=== PATIENT | female | born 1940 | race Caucasian/White ===

== ENCOUNTER 2017-07-07 20:53 | Inpatient (IN) | payer OTHER, MEDICARE ==
[~2017-07-07 20:53] MED LIST: AMLO5TAB2 PO; ASPI81TA19 PO; BUSP5TAB PO; CHOL1TAB42 PO; CITA20TA4 PO; CLON0.1T PO; EZET1TAB8 PO; ISOS30TA3 PO; L. A1CAP PO; LEVO50TA4 PO; LOSA50TA PO; MULT1TAB46 PO; OMEP20TA PO; VITA10002 PO
[2017-07-07] MEDS ORDERED: IOHEXOL 350 MG/ML 10 ML VIAL (for RAD DIAG) IVCONTRAST ONE (20:54)
[2017-07-07 20:56] VITALS: BP 149/66; PULSE 89; RESP 20; TEMP 101.4; O2SAT 97
[2017-07-07] MEDS ORDERED: FAMOTIDINE 20 MG/2 ML VIAL IV PUSH ONE (21:30)
[2017-07-07] MEDS ORDERED: SODIUM CHLOR 0.9% 1000 ML INJ 1,000 ML IV SCH (21:30)
[2017-07-07] MEDS ORDERED: ONDANSETRON HCL 4 MG/2 ML VIAL IVP ONE (21:30)
[2017-07-07] MEDS ORDERED: ACETAMINOPHEN 325 MG TAB PO ONE ×2 (21:30→23:15)
[2017-07-07 21:34] VITALS: BP 195/93; PULSE 84; RESP 20; O2SAT 97
[2017-07-07 21:51] LABS: AUTOMATED NEUTROPHIL # 13.2 TH/MM3 (1.8-7.7); BASOPHIL # 0.1 TH/MM3 (0-0.2); BASOPHIL % 0.5 % (0.0-2.0); EOSINOPHIL % 0.3 % (0.0-4.0); HEMATOCRIT 32.5 % (35.0-46.0); LYMPHOCYTE # 0.8 TH/MM3 (1.0-4.8); MEAN CELL VOLUME 77.7 FL (80.0-100.0); MEAN CORPUSCULAR HGB CONC 32.1 % (32.0-36.0); MONO % 6.2 % (0.0-8.0); PLATELET COUNT 209 TH/MM3 (150-450); RED BLOOD COUNT 4.18 MIL/MM3 (4.00-5.30); RED CELL DISTRIBUTION WIDTH 23.2 % (11.6-17.2)
--- NOTE | 2017-07-07 21:53 | PD ---
HPI Chief Complaint: Abdominal Pain Time Seen by Provider: 21:25 Travel History International Travel<30 days: No Contact w/Intl Traveler<30days: No Traveled to known affect area: No History of Present Illness HPI 76-year-old female that presents to the ED for evaluation of abdominal pain and nausea and vomiting. Per patient she's had fever for the past 2 hours. The patient she developed nausea but 2 hours ago. She states that she is the only one who ate her food and nobody else got sick but only her. She states having body aches. Mainly on the legs. She states having lower abdominal pain. She has a history of a hernia repair. She has any chest pain or shortness of breath. No cough but she states having some congestion. She did not know she had a fever until she came here. She has a history of aneurysm repair as well as a hernia repair but no other surgeries to the abdomen reported. She isn't denies any cough. She states that she vomited a couple times. No diarrhea or bowel movement issues. Multiple allergies to different medications. PFSH Past Medical History Hx Anticoagulant Therapy: Yes Arthritis: Yes Asthma: Yes Blood Disorders: No Heart Rhythm Problems: No Cancer: No Cardiovascular Problems: Yes (BYPASS) High Cholesterol: Yes Chest Pain: No Congestive Heart Failure: No Cerebrovascular Accident: Yes Diabetes: No Diminished Hearing: No Endocrine: Yes Gastrointestinal Disorders: No Genitourinary: Yes (FREQUENT KIDNEY INFECTIONS) Hypertension: Yes Immune Disorder: No Musculoskeletal: Yes (arthritis) Neurologic: Yes Psychiatric: No Reproductive: No Respiratory: Yes (allergies) Renal Failure: Yes Thyroid Disease: Yes Influenza Vaccination: Yes Menopausal: Yes Tubal Ligation: Yes Past Surgical History Abdominal Surgery: Yes (hernia repair) Cardiac Surgery: Yes (open heart) Coronary Artery Bypass Graft: Yes Gynecologic Surgery: Yes (tubal ligation) Other Surgery: Yes (open heart, tubal ligation) Social History Alcohol Use: Yes (OCC) Tobacco Use: No Substance Use: No Allergies-Medications (Allergen,Severity, Reaction): Coded Allergies: amlodipine (Unverified Allergy, Severe, Cramping, 07/07/17) atorvastatin (Unverified Allergy, Severe, Cramping, 07/07/17) pravastatin (Unverified Allergy, Severe, Cramping, 07/07/17) prednisone (Unverified Allergy, Severe, [place], 07/07/17) simvastatin (Unverified Allergy, Severe, Cramping, 07/07/17) codeine (Unverified Adverse Reaction, Severe, 07/07/17) dopamine (Unverified Adverse Reaction, Severe, 07/07/17) morphine (Unverified Adverse Reaction, Severe, 07/07/17) rivaroxaban (Unverified Adverse Reaction, Severe, 07/07/17) Reported Meds & Prescriptions Reported Meds & Active Scripts Active Reported Clonidine (Clonidine HCl) 0.1 Mg Tab 0.1 Mg PO BID PRN Ezetimibe 10 Mg Tab 10 Mg PO HS Citalopram (Citalopram Hydrobromide) 20 Mg Tab 20 Mg PO HS Multi Vitamin Daily (Multiple Vitamin) 1 Tab Tab 1 Tab PO DAILY Acidophilus Capsule (L. Acidophilus/Pectin, [place]) 1 Each Capsule 1 Cap PO DAILY Vitamin D-3 (Cholecalciferol) 2,000 Unit Tab 1 Cap PO DAILY Amlodipine (Amlodipine Besylate) 5 Mg Tab 5 Mg PO DAILY Buspirone (Buspirone HCl) 5 Mg Tab 5 Mg PO BID Levothyroxine (Levothyroxine Sodium) 50 Mcg Tab 50 Mcg PO DAILY Isosorbide Mononitrate ER (Isosorbide Mononitrate) 30 Mg Patrick 30 Mg PO DAILY Losartan (Losartan Potassium) 50 Mg Tab 50 Mg PO BID Aspir-Low (Aspirin) 81 Mg Tabdr 81 Mg PO DAILY Vitamin B-12 (Cyanocobalamin) 1,000 Mcg Tab 1,000 Mcg PO DAILY Omeprazole 20 Mg Tab 20 Mg PO DAILY Review of Systems Except as stated in HPI: all other systems reviewed are Neg Physical Exam Narrative GENERAL: SKIN: Warm and dry. HEAD: Atraumatic. Normocephalic. EYES: Pupils equal and round. No scleral icterus. No injection or drainage. ENT: No nasal bleeding or discharge. Mucous membranes pink and moist. Tongue is midline. No uvula deviation. TMs are clear with no sign of infection or perforation. NECK: Trachea midline. No JVD. CARDIOVASCULAR: Regular rate and rhythm. No murmurs, S3, S4. RESPIRATORY: No accessory muscle use. Clear to auscultation. Breath sounds equal bilaterally. GASTROINTESTINAL: Abdomen soft, non-tender, nondistended. Hepatic and splenic margins not palpable. MUSCULOSKELETAL: Extremities without clubbing, cyanosis, or edema. No obvious deformities. Full range of motion of the upper and lower extremities bilaterally. 2+ pulses bilaterally. NEUROLOGICAL: Awake and alert. No obvious cranial nerve deficits. Motor grossly within normal limits. Five out of 5 muscle strength in the arms and legs. Normal speech. PSYCHIATRIC: Appropriate mood and affect; insight and judgment normal. Data Data Last Documented VS Vital Signs Date Time Temp Pulse Resp B/P (MAP) Pulse Ox O2 Delivery O2 Flow Rate FiO2 07/07/17 21:34 84 20 195/93 (127) 97 Room Air 07/07/17 20:56 101.4 Orders Orders Complete Blood Count With Diff (07/07/17 21:30) Comprehensive Metabolic Panel (07/07/17 21:30) Lipase (07/07/17 21:30) Lactic Acid (07/07/17 21:30) Prothrombin Time / Inr (Pt) (07/07/17 21:30) Act Partial Throm Time (Ptt) (07/07/17 21:30) Urinalysis - C+S If Indicated (07/07/17 21:30) Ct Abd/Pel W Iv Contrast(Rout) (07/07/17 21:30) Iv Access Insert/Monitor (07/07/17 21:30) Ecg Monitoring (07/07/17 21:30) Oximetry (07/07/17 21:30) Ondansetron Inj (Zofran Inj) (07/07/17 21:30) Sodium Chlor 0.9% 1000 Ml Inj (Ns 1000 M (07/07/17 21:30) Famotidine Inj (Pepcid Inj) (07/07/17 21:30) Acetaminophen (Tylenol) (07/07/17 21:30) Chest, Single Ap (07/07/17 ) Iohexol 350 Inj (Omnipaque 350 Inj) (07/07/17 20:54) Urine Culture (07/07/17 22:21) Ceftriaxone Inj (Rocephin Inj) (07/07/17 23:15) Acetaminophen (Tylenol) (07/07/17 23:15) Ibuprofen (Motrin) (07/07/17 23:30) Admit Order (Ed Use Only) (07/07/17 23:48) Vital Signs (Adult) Q4H (07/07/17 23:47) Activity Oob With Assistance (07/07/17 23:47) Diet Heart Healthy (07/08/17 Breakfast) Sodium Chlor 0.9% 1000 Ml Inj (Ns 1000 M (07/07/17 23:47) Sodium Chloride 0.9% Flush (Ns Flush) (07/08/17 00:00) Sodium Chloride 0.9% Flush (Ns Flush) (07/08/17 09:00) Basic Metabolic Panel (Bmp) (07/08/17 06:00) Complete Blood Count With Diff (07/08/17 06:00) Case Management Consult (07/07/17 23:47) Naloxone Inj (Narcan Inj) (07/08/17 00:00) Ceftriaxone Inj (Rocephin Inj) (07/08/17 00:00) Labs Laboratory Tests Test 07/07/17 21:40 07/07/17 22:21 White Blood Count 15.0 TH/MM3 Red Blood Count 4.18 MIL/MM3 Hemoglobin 10.4 GM/DL Hematocrit 32.5 % Mean Corpuscular Volume 77.7 FL Mean Corpuscular Hemoglobin 25.0 PG Mean Corpuscular Hemoglobin Concent 32.1 % Red Cell Distribution Width 23.2 % Platelet Count 209 TH/MM3 Mean Platelet Volume 8.5 FL Neutrophils (%) (Auto) 88.0 % Lymphocytes (%) (Auto) 5.0 % Monocytes (%) (Auto) 6.2 % Eosinophils (%) (Auto) 0.3 % Basophils (%) (Auto) 0.5 % Neutrophils # (Auto) 13.2 TH/MM3 Lymphocytes # (Auto) 0.8 TH/MM3 Monocytes # (Auto) 0.9 TH/MM3 Eosinophils # (Auto) 0.0 TH/MM3 Basophils # (Auto) 0.1 TH/MM3 CBC Comment AUTO DIFF Differential Comment AUTO DIFF CONFIRMED Prothrombin Time 10.2 SEC Prothromb Time International Ratio 0.9 RATIO Activated Partial Thromboplast Time 23.8 SEC Blood Urea Nitrogen 24 MG/DL Creatinine 1.24 MG/DL Random Glucose 101 MG/DL Total Protein 7.8 GM/DL Albumin 3.8 GM/DL Calcium Level 9.1 MG/DL Alkaline Phosphatase 82 U/L Aspartate Amino Transf (AST/SGOT) 20 U/L Alanine Aminotransferase (ALT/SGPT) 17 U/L Total Bilirubin 0.4 MG/DL Sodium Level 140 MEQ/L Potassium Level 3.6 MEQ/L Chloride Level 107 MEQ/L Carbon Dioxide Level 25.1 MEQ/L Anion Gap 8 MEQ/L Estimat Glomerular Filtration Rate 42 ML/MIN Lactic Acid Level 1.6 mmol/L Lipase 131 U/L Urine Color YELLOW Urine Turbidity HAZY Urine pH 6.5 Urine Specific [place] 1.016 Urine Protein TRACE mg/dL Urine Glucose (UA) NEG mg/dL Urine Ketones NEG mg/dL Urine Occult Blood TRACE Urine Nitrite POS Urine Bilirubin NEG Urine Urobilinogen LESS THAN 2.0 MG/DL Urine Leukocyte Esterase LARGE Urine RBC 7 /hpf Urine WBC 89 /hpf Urine Squamous Epithelial Cells <1 /hpf Urine Renal Epithelial Cells <1 /hpf Urine Bacteria OCC /hpf Microscopic Urinalysis Comment CULTURE INDICATED MDM Medical Decision Making Medical Screen Exam Complete: Yes Emergency Medical Condition: Yes Medical Record Reviewed: Yes Interpretation(s) CBC Diagram 07/07/17 21:40 Differential Diagnosis Fever versus sepsis versus dehydration versus UTI versus diverticulitis versus acute abdomen versus pancreatitis Narrative Course 76-year-old female that presents to the ED for evaluation of nausea vomiting and fever. Patient was properly examined and was found to have signs and symptoms of unclear etiology. Likely gastroenteritis but patient does have a high fever. Labs and imaging were ordered. CT was ordered. Patient was given IV fluids and Tylenol as well as Zofran. Labs and imaging pending at the writing of this note. Case signed out to my attending Dr Gutierrez. Sepsis Criteria SIRS Criteria (2 or more): Temp > 100.9 or < 96.8, WBC > 39203, < 4000 or > 10 % bands Sepsis Criteria (SIRS+source): Infect source susp/known Criteria Outcome: Meets sepsis criteria Italo Michaud Jul 07, 2017 21:53
[2017-07-07 21:56] LABS: HEMO FLAGS AUTO DIFF
[2017-07-07 22:05] LABS: ALT (GPT) 17 U/L (10-53); ANION GAP 8 MEQ/L (5-15); AST (GOT) 20 U/L (15-37); BICARBONATE 25.1 MEQ/L (21.0-32.0); BLOOD UREA NITROGEN 24 MG/DL (7-18); CHLORIDE 107 MEQ/L (98-107); GLOMERULAR FILTRATION RATE 42 ML/MIN (>89); POTASSIUM 3.6 MEQ/L (3.5-5.1); SODIUM (NA) 140 MEQ/L (136-145)
[2017-07-07 22:08] LABS: ALKALINE PHOSPHATASE 82 U/L (45-117); TOTAL BILIRUBIN ADULT 0.4 MG/DL (0.2-1.0)
[2017-07-07 22:28] LABS: APTT (PATIENT) 23.8 SEC (24.3-30.1); INTERNATIONAL NORMALIZED RATIO 0.9 RATIO; PROTHROMBIN TIME - PATIENT 10.2 SEC (9.8-11.6); SCAN/DIFF AUTO DIFF CONFIRMED
--- NOTE | 2017-07-07 22:34 | RADRPT ---
EXAM DATE/TIME: 07/07/2017 22:05 [facility] COMPARISON: CHEST PA & LAT, June 02, 2015, 12:08. INDICATIONS : Fever today. MEDICAL HISTORY : Hypertension. Stroke. Asthma. Renal failure. SURGICAL HISTORY : CABG. ENCOUNTER: Initial ACUITY: 1 day PAIN SCORE: 0/10 LOCATION: Bilateral chest FINDINGS: A single view of the chest demonstrates median sternotomy. Tortuous aorta. Mild basilar atelectasis o r scarring. There is also upper lobe scarring and some upward hilar retraction on the left. Emphysema . CONCLUSION: 1. Parenchymal scarring and fibrosis in the lungs similar to June 2015. No new infiltrate. Underlyi ng emphysema. Matthew Miller MD on July 07, 2017 at 22:31 Board Certified Radiologist. This report was verified electronically.
--- NOTE | 2017-07-07 23:02 | RADRPT ---
EXAM DATE/TIME: 07/07/2017 22:45 [facility] COMPARISON: No previous studies available for comparison. INDICATIONS : Patient complains of abdominal pain and vomiting for two hours. IV CONTRAST: 75 cc Omnipaque 350 (iohexol) IV ORAL CONTRAST: No oral contrast ingested. RADIATION DOSE: 10.58 CTDIvol (mGy) MEDICAL HISTORY : Cardiovascular disease. Hypertension. Hernia, hiatal. SURGICAL HISTORY : CABG Tubal ligation.hernia repair ENCOUNTER: Initial ACUITY: 1 day PAIN SCALE: 5/10 LOCATION: upper quadrant TECHNIQUE: Volumetric scanning of the abdomen and pelvis was performed. Using automated exposure control and ad justment of the mA and/or kV according to patient size, radiation dose was kept as low as reasonably achievable to obtain optimal diagnostic quality images. DICOM format image data is available electro nically for review and comparison. FINDINGS: Compared to 2015. Linear parenchymal scarring lung bases. Large hiatal hernia. Calcified granulomata in the liver and spleen. Adrenals and pancreas unchanged. Mildly dilated right renal pelvis. No left hydronephrosis. Previous stent graft in the aorta. No free fluid. No bowel obstruction. No adenopathy. Colonic diverticulosis without diverticulitis. De generative changes of the spine with lumbar canal stenosis. Left paracentral disc protrusion L4-5 sim ilar to prior exam. CONCLUSION: 1. Negative for bowel obstruction, free air or free fluid. 2. Status post stent graft placement in the aorta without significant residual aneurysm. 3. Dilatation of right renal collecting system, mild. No visible calculi. 4. Large hiatal hernia. 5. Degenerative lumbar spine with left paracentral disc protrusion at L4-5. 6. Cholelithiasis. Matthew Miller MD on July 07, 2017 at 22:54 Board Certified Radiologist. This report was verified electronically.
[2017-07-07 23:03] LABS: BACTERIA, URINE OCC /hpf; BLOOD, URINE TRACE (NEG); COMMENT (UR) CULTURE INDICATED; CULTURE IF INDICATED CULTURE INDICATED; GLUCOSE,URINE NEG (NEG); KETONE, URINE NEG (NEG); NITRITE,URINE POS (NEG); PH, URINE 6.5 (5.0-8.5); RENAL EPITHELIAL CELLS <1 /hpf; SQUAMOUS EPITHELIAL CELL URINE <1 /hpf (0-5); URINE COLOR YELLOW (YELLW/STRAW)
[2017-07-07] MEDS ORDERED: cefTRIAXone INJ 1,000 MG in SODIUM CHLORIDE 0.9% INJ 100 ML IV ONE (23:15)
--- NOTE | 2017-07-07 23:26 | PD ---
Data Data Last Documented VS Vital Signs Date Time Temp Pulse Resp B/P (MAP) Pulse Ox O2 Delivery O2 Flow Rate FiO2 07/07/17 21:34 84 20 195/93 (127) 97 Room Air 07/07/17 20:56 101.4 Orders Orders Complete Blood Count With Diff (07/07/17 21:30) Comprehensive Metabolic Panel (07/07/17 21:30) Lipase (07/07/17 21:30) Lactic Acid (07/07/17 21:30) Prothrombin Time / Inr (Pt) (07/07/17 21:30) Act Partial Throm Time (Ptt) (07/07/17 21:30) Urinalysis - C+S If Indicated (07/07/17 21:30) Ct Abd/Pel W Iv Contrast(Rout) (07/07/17 21:30) Iv Access Insert/Monitor (07/07/17 21:30) Ecg Monitoring (07/07/17 21:30) Oximetry (07/07/17 21:30) Ondansetron Inj (Zofran Inj) (07/07/17 21:30) Sodium Chlor 0.9% 1000 Ml Inj (Ns 1000 M (07/07/17 21:30) Famotidine Inj (Pepcid Inj) (07/07/17 21:30) Acetaminophen (Tylenol) (07/07/17 21:30) Chest, Single Ap (07/07/17 ) Iohexol 350 Inj (Omnipaque 350 Inj) (07/07/17 20:54) Urine Culture (07/07/17 22:21) Ceftriaxone Inj (Rocephin Inj) (07/07/17 23:15) Acetaminophen (Tylenol) (07/07/17 23:15) Ibuprofen (Motrin) (07/07/17 23:30) Admit Order (Ed Use Only) (07/07/17 23:48) Vital Signs (Adult) Q4H (07/07/17 23:47) Activity Oob With Assistance (07/07/17 23:47) Diet Heart Healthy (07/08/17 Breakfast) Sodium Chlor 0.9% 1000 Ml Inj (Ns 1000 M (07/07/17 23:47) Sodium Chloride 0.9% Flush (Ns Flush) (07/08/17 00:00) Sodium Chloride 0.9% Flush (Ns Flush) (07/08/17 09:00) Basic Metabolic Panel (Bmp) (07/08/17 06:00) Complete Blood Count With Diff (07/08/17 06:00) Case Management Consult (07/07/17 23:47) Naloxone Inj (Narcan Inj) (07/08/17 00:00) Ceftriaxone Inj (Rocephin Inj) (07/08/17 22:00) Labs Laboratory Tests Test 07/07/17 21:40 07/07/17 22:21 White Blood Count 15.0 TH/MM3 Red Blood Count 4.18 MIL/MM3 Hemoglobin 10.4 GM/DL Hematocrit 32.5 % Mean Corpuscular Volume 77.7 FL Mean Corpuscular Hemoglobin 25.0 PG Mean Corpuscular Hemoglobin Concent 32.1 % Red Cell Distribution Width 23.2 % Platelet Count 209 TH/MM3 Mean Platelet Volume 8.5 FL Neutrophils (%) (Auto) 88.0 % Lymphocytes (%) (Auto) 5.0 % Monocytes (%) (Auto) 6.2 % Eosinophils (%) (Auto) 0.3 % Basophils (%) (Auto) 0.5 % Neutrophils # (Auto) 13.2 TH/MM3 Lymphocytes # (Auto) 0.8 TH/MM3 Monocytes # (Auto) 0.9 TH/MM3 Eosinophils # (Auto) 0.0 TH/MM3 Basophils # (Auto) 0.1 TH/MM3 CBC Comment AUTO DIFF Differential Comment AUTO DIFF CONFIRMED Prothrombin Time 10.2 SEC Prothromb Time International Ratio 0.9 RATIO Activated Partial Thromboplast Time 23.8 SEC Blood Urea Nitrogen 24 MG/DL Creatinine 1.24 MG/DL Random Glucose 101 MG/DL Total Protein 7.8 GM/DL Albumin 3.8 GM/DL Calcium Level 9.1 MG/DL Alkaline Phosphatase 82 U/L Aspartate Amino Transf (AST/SGOT) 20 U/L Alanine Aminotransferase (ALT/SGPT) 17 U/L Total Bilirubin 0.4 MG/DL Sodium Level 140 MEQ/L Potassium Level 3.6 MEQ/L Chloride Level 107 MEQ/L Carbon Dioxide Level 25.1 MEQ/L Anion Gap 8 MEQ/L Estimat Glomerular Filtration Rate 42 ML/MIN Lactic Acid Level 1.6 mmol/L Lipase 131 U/L Urine Color YELLOW Urine Turbidity HAZY Urine pH 6.5 Urine Specific [place] 1.016 Urine Protein TRACE mg/dL Urine Glucose (UA) NEG mg/dL Urine Ketones NEG mg/dL Urine Occult Blood TRACE Urine Nitrite POS Urine Bilirubin NEG Urine Urobilinogen LESS THAN 2.0 MG/DL Urine Leukocyte Esterase LARGE Urine RBC 7 /hpf Urine WBC 89 /hpf Urine Squamous Epithelial Cells <1 /hpf Urine Renal Epithelial Cells <1 /hpf Urine Bacteria OCC /hpf Microscopic Urinalysis Comment CULTURE INDICATED MDM Supervised Visit with MAGDA: Yes Narrative Course I, Dr. Gutierrez, have reviewed the advance practice practitioner's documentation and am in agreement, met with the patient face to face, made the diagnosis, and the medical decision making was done by me. See her note for further details. Briefly this is a 76-year-old female who is here for evaluation of abdominal pain, nausea, vomiting, generalized weakness, unsteady gait, fever. Symptoms started a few hours ago. She is here with her family members. On physical exam she is awake and alert and in no apparent distress. No abdominal tenderness. Vital signs show heart rate 89, blood pressure 149/66, pulse ox 97% on room air , oral temp of 101.4F. CBC shows WBC 15, hemoglobin 10.4 which is around her baseline, neutrophils 80%. CMP is remarkable for BUN 24, creatinine 1.24, GFR 42. Lipase is 131. Lactic acid is 1.6. UA is suggestive of UTI. The patient was given a dose of IV Rocephin. Chest x-ray: CONCLUSION: 1. Parenchymal scarring and fibrosis in the lungs similar to June 2015. No new infiltrate. Underlying emphysema. CT abdomen pelvis: CONCLUSION: 1. Negative for bowel obstruction, free air or free fluid. 2. Status post stent graft placement in the aorta without significant residual aneurysm. 3. Dilatation of right renal collecting system, mild. No visible calculi. 4. Large hiatal hernia. 5. Degenerative lumbar spine with left paracentral disc protrusion at L4-5. 6. Cholelithiasis. The patient and the patient's family were made aware of all findings. Upon return from CT scan the patient began complaining of a frontal headache. She was already given a dose of Tylenol for her fever. She will be given a dose of ibuprofen for her headache. No nuchal rigidity on exam. She was given a dose of IV Rocephin for her UTI. Patient's family is concerned because the patient has generalized weakness and is unsteady on her feet and they live on a third floor condominium and believe they will have a hard time getting her up the stairs. Patient also still feels very nauseous and is not tolerating clear liquids yet. Because of these factors, the patient will be admitted for overnight observation for further treatment and evaluation of UTI, SIRS, nausea and vomiting, generalized weakness. Case discussed with hospitalist Dr. Easton will admit the patient to her service. Diagnosis Primary Impression: UTI (urinary tract infection) Qualified Codes: N39.0 - Urinary tract infection, site not specified; R31.9 - Hematuria, unspecified Additional Impressions: SIRS (systemic inflammatory response syndrome) Generalized weakness Unsteady gait Nausea and vomiting Qualified Codes: R11.2 - Nausea with vomiting, unspecified Jong Gutierrez MD Jul 07, 2017 23:26
[2017-07-07] MEDS ORDERED: IBUPROFEN 400 MG TAB PO ONE (23:30)
[2017-07-08] MEDS ORDERED: cefTRIAXone INJ 1,000 MG in SODIUM CHLORIDE 0.9% INJ 100 ML IV SCH ×2
[2017-07-08] MEDS ORDERED: NALOXONE HCL 0.4 MG/ML AMP IV PRN
[2017-07-08] MEDS ORDERED: SODIUM CHLORIDE 0.9% FLUSH 10 ML FLUSH IV FLUSH PRN
[2017-07-08 00:27] VITALS: BP 172/72; PULSE 81; RESP 18; TEMP 98.1; O2SAT 98
--- NOTE | 2017-07-08 01:48 | HHI.HP ---
[facility] Drake Farmer MD Admission Diagnosis UTI, SIRS, nausea and vomiting, generalized weakness, unsteady gait Diagnoses: Travel History International Travel<30 Days: No Contact w/Intl Traveler <30 Da: No Traveled to Known Affected Are: No Sepsis Criteria SIRS Criteria (2 or more): Temp > 100.9 or < 96.8, WBC > 21670, < 4000 or > 10 % bands Sepsis Criteria (SIRS+source): Infect source susp/known History of Present Illness was fine in am had meeting during day and by 530p.m when came back home, had severe shaking, fever, chills, [place], vomiting vomited about 4-5 x that time mostly dry heaves no blood in vomit no diarrhea had abdominal pain- mostly left lower quadrant kept happening during the evening 0 thus daughter brought her to er not diabetic no recent hospitalizations in past 6 months little cough, no sputum 2 weeks ago had some burning and pain on urination- was on meds for it - macrobid 7 days course finished no cp/ sob/dizziness/ syncope Review of Systems Except as stated in HPI: all other systems reviewed are Neg Past Family Social History Past Medical History labile blood pressure htn cad - s/p cabg- 1996 copd hepatitis - wayyyy back- cant remember which type CVA - left side weak Past Surgical History cabg abdominal aortic aneurysm- repaired umbilical hernia repair Allergies: Coded Allergies: amlodipine (Unverified Allergy, Severe, Cramping, 07/07/17) atorvastatin (Unverified Allergy, Severe, Cramping, 07/07/17) pravastatin (Unverified Allergy, Severe, Cramping, 07/07/17) prednisone (Unverified Allergy, Severe, AL, 07/07/17) simvastatin (Unverified Allergy, Severe, Cramping, 07/07/17) codeine (Unverified Adverse Reaction, Severe, 07/07/17) dopamine (Unverified Adverse Reaction, Severe, 07/07/17) morphine (Unverified Adverse Reaction, Severe, 07/07/17) rivaroxaban (Unverified Adverse Reaction, Severe, 07/07/17) Family History dad and mom- had MIs mom- had strokes Social History used to smoke , but quit in the 1970s drink wine only once in a while no drugs Physical Exam Vital Signs Vital Signs Date Time Temp Pulse Resp B/P (MAP) Pulse Ox O2 Delivery O2 Flow Rate FiO2 07/08/17 00:27 98.1 81 18 172/72 (105) 98 Room Air 07/07/17 21:34 84 20 195/93 (127) 97 Room Air 07/07/17 21:34 97 Room Air 07/07/17 20:56 101.4 89 20 149/66 (93) 97 Room Air Physical Exam GENERAL: This is a well-nourished, well-developed patient, in no apparent distress. warm to touch SKIN: No rashes, ecchymoses or lesions. Cool and dry. HEAD: Atraumatic. Normocephalic. No temporal or scalp tenderness. EYES: No scleral icterus. No injection or drainage. ENT: Nose without bleeding, purulent drainage or septal hematoma. Airway patent. NECK: Trachea midline. No JVD CARDIOVASCULAR: Regular rate and rhythm without murmurs, gallops, or rubs. RESPIRATORY: Clear to auscultation. Breath sounds equal bilaterally. No wheezes , rales, or rhonchi. GASTROINTESTINAL: Abdomen soft, non-tender, nondistended. No guarding. MUSCULOSKELETAL: Extremities without clubbing, cyanosis, or edema. . No calf tenderness. NEUROLOGICAL: Awake and alert. motor and sensory grossly within normal limits.Normal speech. Laboratory Laboratory Tests Test 07/07/17 21:40 07/07/17 22:21 White Blood Count 15.0 Red Blood Count 4.18 Hemoglobin 10.4 Hematocrit 32.5 Mean Corpuscular Volume 77.7 Mean Corpuscular Hemoglobin 25.0 Mean Corpuscular Hemoglobin Concent 32.1 Red Cell Distribution Width 23.2 Platelet Count 209 Mean Platelet Volume 8.5 Neutrophils (%) (Auto) 88.0 Lymphocytes (%) (Auto) 5.0 Monocytes (%) (Auto) 6.2 Eosinophils (%) (Auto) 0.3 Basophils (%) (Auto) 0.5 Neutrophils # (Auto) 13.2 Lymphocytes # (Auto) 0.8 Monocytes # (Auto) 0.9 Eosinophils # (Auto) 0.0 Basophils # (Auto) 0.1 CBC Comment AUTO DIFF Differential Comment AUTO DIFF CONFIRMED Prothrombin Time 10.2 Prothromb Time International Ratio 0.9 Activated Partial Thromboplast Time 23.8 Blood Urea Nitrogen 24 Creatinine 1.24 Random Glucose 101 Total Protein 7.8 Albumin 3.8 Calcium Level 9.1 Alkaline Phosphatase 82 Aspartate Amino Transf (AST/SGOT) 20 Alanine Aminotransferase (ALT/SGPT) 17 Total Bilirubin 0.4 Sodium Level 140 Potassium Level 3.6 Chloride Level 107 Carbon Dioxide Level 25.1 Anion Gap 8 Estimat Glomerular Filtration Rate 42 Lactic Acid Level 1.6 Lipase 131 Urine Color YELLOW Urine Turbidity HAZY Urine pH 6.5 Urine Specific [place] 1.016 Urine Protein TRACE Urine Glucose (UA) NEG Urine Ketones NEG Urine Occult Blood TRACE Urine Nitrite POS Urine Bilirubin NEG Urine Urobilinogen LESS THAN 2.0 Urine Leukocyte Esterase LARGE Urine RBC 7 Urine WBC 89 Urine Squamous Epithelial Cells <1 Urine Renal Epithelial Cells <1 Urine Bacteria OCC Microscopic Urinalysis Comment CULTURE INDICATED Date/Time Source Procedure Growth Status 07/07/17 22:21 Urine Random Urine Urine Culture Pending Received Result Diagram: 07/07/17213907/07/172139 Imaging Last 48 hours Impressions Abdomen/Pelvis CT 07/07/172129 Signed Impressions: Service Date/Time: Friday, July 07, 2017 22:45 - CONCLUSION: 1. Negative for bowel obstruction, free air or free fluid. 2. Status post stent graft placement in the aorta without significant residual aneurysm. 3. Dilatation of right renal collecting system, mild. No visible calculi. 4. Large hiatal hernia. 5. Degenerative lumbar spine with left paracentral disc protrusion at L4-5. 6. Cholelithiasis. Matthew Miller MD Chest X-Ray 07/07/17 0000 Signed Impressions: Service Date/Time: Friday, July 07, 2017 22:05 - CONCLUSION: 1. Parenchymal scarring and fibrosis in the lungs similar to June 2015. No new infiltrate. Underlying emphysema. Matthew Miller MD Caprini VTE Risk Assessment Caprini VTE Risk Assessment: Mod/High Risk (score >= 2) Caprini Risk Assessment Model Point Value = 1 Point Value = 2 Point Value = 3 Point Value = 5 Age 41-60 Minor surgery BMI > 25 kg/m2 Swollen legs Varicose veins or History of unexplained or recurrent spontaneous Oral contraceptives or hormone replacement Sepsis (< 1 month) Serious lung disease, including pneumonia (< 1 month) Abnormal pulmonary function Acute myocardial infarction Congestive heart failure (< 1 month) History of inflammatory bowel disease Medical patient at bed rest Age 61-74 Arthroscopic surgery Major open surgery (> 45 min) Laparoscopic surgery (> 45 min) Malignancy Confined to bed (> 72 hours) Immobilizing plaster cast Central venous access Age >= 75 History of VTE Family history of VTE Factor V Leiden Prothrombin [id number] Lupus anticoagulant Anticardiolipin antibodies Elevated serum homocysteine Heparin-induced thrombocytopenia Other congenital or acquired thrombophilia Stroke (< 1 month) Elective arthroplasty Hip, pelvis, or leg fracture Acute spinal cord injury (< 1 month) Prophylaxis Regimen Total Risk Factor Score Risk Level Prophylaxis Regimen 0-1 Low Early ambulation 2 Moderate Order ONE of the following: *Sequential Compression Device (SCD) *Heparin 5000 units SQ BID 3-4 Higher Order ONE of the following medications: *Heparin 5000 units SQ TID *Enoxaparin/Lovenox 40 mg SQ daily (WT < 150 kg, CrCl > 30 mL/min) *Enoxaparin/Lovenox 30 mg SQ daily (WT < 150 kg, CrCl > 10-29 mL/min) *Enoxaparin/Lovenox 30 mg SQ BID (WT < 150 kg, CrCl > 30 mL/min) AND/OR *Sequential Compression Device (SCD) 5 or more Highest Order ONE of the following medications: *Heparin 5000 units SQ TID (Preferred with Epidurals) *Enoxaparin/Lovenox 40 mg SQ daily (WT < 150 kg, CrCl > 30 mL/min) *Enoxaparin/Lovenox 30 mg SQ daily (WT < 150 kg, CrCl > 10-29 mL/min) *Enoxaparin/Lovenox 30 mg SQ BID (WT < 150 kg, CrCl > 30 mL/min) AND *Sequential Compression Device (SCD) Assessment and Plan Assessment and Plan Impression: Sepsis by criteria. With fever of 101, leukocytosis, source being UTI. UTI Abdominal pain rule out intra-abdominal etiologies as the source such as cholecystitis/appendicitis. Patient also has cholelithiasis on CT. Leukocytosis with left shift Plan: Patient received 1 L normal saline bolus in ER. She was started on Rocephin 1 g IV in ER. We'll follow up urine culture results. Since patient's CT was showing cholelithiasis, this could also be secondary to symptomatic cholelithiasis versus cholecystitis as patient is having abdominal pains on Examination. Therefore switched to Zosyn 4.5 g IV every 6 hours. Ultrasound of the abdomen in a.m. Based on the ultrasound results, consider general surgery evaluation if there is evidence of cholecystitis. DVT prophylaxiswith SCD. GI prophylaxis on pantoprazole. Resume home meds. Discussed Condition With Patient, ER physician, patient's nurse Mckay Easton MD Jul 08, 2017 01:48
[2017-07-08] MEDS: PIPERACIL-TAZO 3.375 GM PREMIX 50 ML IV SCH ×4 (02:04→20:06)
[2017-07-08 04:33] VITALS: BP 133/63; PULSE 63; RESP 17; TEMP 97.5; O2SAT 100
[2017-07-08] MEDS: LEVOTHYROXINE SODIUM 50 MCG TAB PO SCH (06:19)
[2017-07-08 07:42] VITALS: BP 152/67; PULSE 61; RESP 16; TEMP 98.2; O2SAT 100
[2017-07-08] MEDS: LOSARTAN 50 MG TAB PO SCH ×2 (08:02→20:07)
[2017-07-08] MEDS: amLODIPine BESYLATE 5 MG TAB PO SCH (08:02)
[2017-07-08] MEDS: ISOSORBIDE MONONITRATE 30 MG TAB PO SCH (08:02)
[2017-07-08] MEDS: LACTOBACILLUS ACIDOPHILUS TAB PO SCH (08:02)
[2017-07-08] MEDS: busPIRone HCL 5 MG TAB PO SCH ×2 (08:03→20:07)
[2017-07-08] MEDS: SODIUM CHLORIDE 0.9% FLUSH 10 ML FLUSH IV FLUSH SCH ×2 (08:03→20:07)
[2017-07-08] MEDS: CYANOCOBALAMIN 1,000 MCG TAB PO SCH (08:03)
[2017-07-08] MEDS: ASPIRIN EC 81 MG TABEC PO SCH (08:03)
[2017-07-08] MEDS: PANTOPRAZOLE SOD 20 MG DELAYED RELEASE TAB PO SCH (08:03)
[2017-07-08] MEDS: SODIUM CHLOR 0.9% 1000 ML INJ 1,000 ML IV SCH ×3 (08:05→20:05)
--- NOTE | 2017-07-08 11:04 | RADRPT ---
EXAM DATE/TIME: 07/08/2017 08:13 [place] COMPARISON: CT ABDOMEN & PELVIS W CONTRAST, September 05, 2015, 14:16. CT ABDOMEN & PELVIS W CONTRAST, July 07, 2017, 22:45. INDICATIONS : Right upper quadrant pain. Vomiting. MEDICAL HISTORY : Hypercholesterolemia. Hypertension. Arthritis. Thyroid disease. CVA. COPD. Renal failure. UTI. SURGICAL HISTORY : CABG. Tubal ligation. Abdominal aortic aneurysm repair. Hernia repair. Blood transfusions. ENCOUNTER: Initial ACUITY: 1 day PAIN SCORE: 1/10 LOCATION: Right upper quadrant MEASUREMENTS: LIVER: 15.6 cm length COMMON DUCT: 5 mm RIGHT KIDNEY: 9.4 x 4.5 x 4.2 cm FINDINGS: LIVER: Normal echotexture without focal lesion or ductal dilatation. COMMON DUCT: No intraluminal mass or stone visualized. GALLBLADDER: Mild dependent sludge. The patient was apparently tender to scanning over the gallbladder. PANCREAS: The visualized portions are within normal limits. RIGHT KIDNEY: Moderate hydronephrosis CONCLUSION: Gallbladder sludge. Right hydronephrosis Hugo Gilliam MD on July 08, 2017 at 10:55 Board Certified Radiologist. This report was verified electronically.
--- NOTE | 2017-07-08 11:43 | HHI.PR ---
Subjective Remarks Follow up for intractable abdominal pain/nausea/vomiting, with sepsis, UTI, cholelithiasis. The patient reports feeling better today, no further nausea/ vomiting, however still has a lot of pain only at the RUQ, worse with any palpation. Denies fevers/chills today but states she had severe shakes and chills yesterday. She reports all she ate yesterday was liver w/gravy and fried okra then became sick shortly after. She thought this was food poisoning. Denies any diarrhea. Had a normal formed BM yesterday. She also does report some dysuria, denies suprapubic pain. Denies any other medical complaints at this time. Objective Vitals Vital Signs Date Time Temp Pulse Resp B/P (MAP) Pulse Ox O2 Delivery O2 Flow Rate FiO2 07/08/17 07:42 98.2 61 16 152/67 (95) 100 07/08/17 04:33 97.5 63 17 133/63 (86) 100 07/08/17 00:27 98.1 81 18 172/72 (105) 98 Room Air 07/07/17 21:34 84 20 195/93 (127) 97 Room Air 07/07/17 21:34 97 Room Air 07/07/17 20:56 101.4 89 20 149/66 (93) 97 Room Air Result Diagram: 07/07/17213907/07/172139 Imaging Last Impressions Gall Bladder Ultrasound 07/08/17 0000 Signed Impressions: Service Date/Time: July 08:13 - CONCLUSION: Gallbladder sludge. Right hydronephrosis Hugo Gilliam MD Abdomen/Pelvis CT 07/07/172129 Signed Impressions: Service Date/Time: Friday, July 07, 2017 22:45 - CONCLUSION: 1. Negative for bowel obstruction, free air or free fluid. 2. Status post stent graft placement in the aorta without significant residual aneurysm. 3. Dilatation of right renal collecting system, mild. No visible calculi. 4. Large hiatal hernia. 5. Degenerative lumbar spine with left paracentral disc protrusion at L4-5. 6. Cholelithiasis. Matthew Miller MD Chest X-Ray 07/07/17 0000 Signed Impressions: Service Date/Time: Friday, July 07, 2017 22:05 - CONCLUSION: 1. Parenchymal scarring and fibrosis in the lungs similar to June 2015. No new infiltrate. Underlying emphysema. Matthew Miller MD Objective Remarks GENERAL: Well-nourished, well-developed pleasant elderly female patient in [facility]. SKIN: Warm and dry. No rash. HEENT: Normocephalic. Atraumatic. Pupils equal and round. Mucous membranes pink and moist. NECK: Supple. Trachea midline. CARDIOVASCULAR: Regular rate and rhythm. S1, S2 noted. No murmur appreciated. RESPIRATORY: No accessory muscle use. Clear to auscultation. Breath sounds equal bilaterally. GASTROINTESTINAL: Abdomen soft, nondistended, significant RUQ TTP with +Mcpherson' s sign. Slightly hyperactive bowel sounds. MUSCULOSKELETAL: No obvious deformities. Extremities without clubbing, cyanosis , or edema. NEUROLOGICAL: Awake and alert. No obvious cranial nerve deficits. Motor grossly within normal limits. Normal speech. PSYCHIATRIC: Appropriate mood and affect; insight and judgment normal. Medications and IVs Current Medications Medications (Trade) Dose Ordered Sig/Jose Route Start Time Stop Time Status Last Admin Sodium Chloride 1,000 ml @ 100 mls/hr Q10H IV 07/07/17 23:47 07/08/17 08:05 (NS Flush) 2 ml UNSCH PRN IV FLUSH 07/08/17 00:00 (NS Flush) 2 ml BID IV FLUSH 07/08/17 09:00 (Narcan Inj) 0.4 mg UNSCH PRN IV 07/08/17 00:00 (Norvasc) 5 mg DAILY PO 07/08/17 09:00 07/08/17 08:02 (Ecotrin Ec) 81 mg DAILY PO 07/08/17 09:00 07/08/17 08:03 (Buspar) 5 mg BID PO 07/08/17 09:00 07/08/17 08:03 (CeleXA) 20 mg HS PO 07/08/17 21:00 (Vitamin B12) 1,000 mcg DAILY PO 07/08/17 09:00 07/08/17 08:03 (Zetia) 10 mg HS PO 07/08/17 21:00 (Imdur) 30 mg DAILY PO 07/08/17 09:00 07/08/17 08:02 (Synthroid) 50 mcg DAILY@0600 PO 07/08/17 06:00 07/08/17 06:19 (Cozaar) 50 mg BID PO 07/08/17 09:00 07/08/17 08:02 (Lactinex) 1 tab DAILY PO 07/08/17 09:00 07/08/17 08:02 (Protonix) 20 mg DAILY PO 07/08/17 09:00 07/08/17 08:03 Piperacillin Sod/ Tazobactam Sod 50 ml @ 200 mls/hr Q6H IV 07/08/17 02:00 07/08/17 08:03 A/P Assessment and Plan 76-year-old female with hx of HTN, CAD s/p CABG 1996, COPD, CVA, presents with acute onset of chills, abdominal pain, nausea, and vomiting. Sepsis: patient meets sepsis criteria with fever Tmax 101.4, +leukocytosis WBC 15.0K and suspect source +UTI, possible cholecystitis. Lactic acid 1.6. -continue IVF -monitor CBC -collect blood cultures, monitor -continue antibiotics as below -monitor for improvement UTI: UA with +nitrites, large leuks, WBCs, bacteria. With fever and leukocytosis. -continue antibiotics with IV Zosyn -monitor urine culture Cholelithiasis, possible Cholecystitis: fever and leukocytosis. +RUQ pain/+ Mcpherson's sign on exam. CT abd with cholelithiasis. GB U/S with gallbladder sludge. -continue antibiotics with IV Zosyn -supportive treatment with IVF, antiemetics prn, and pain control prn -consult general surgery for further recommendations. All other medical conditions stable, continue home medications as appropriate. DVT prophylaxis: teds/SCD. GI prophylaxis: on pantoprazole. Discharge Planning Discharge pending further clinical improvement, cultures, and evaluation by general surgery. Saloni Wynne PA-C Jul 08, 2017 11:43 am
[2017-07-08 11:51] VITALS: BP 117/56; PULSE 65; RESP 18; TEMP 98.1; O2SAT 97
[2017-07-08 12:07] LABS: AUTOMATED NEUTROPHIL # 11.7 TH/MM3 (1.8-7.7); BASOPHIL # 0.1 TH/MM3 (0-0.2); BASOPHIL % 0.4 % (0.0-2.0); EOSINOPHIL # 0.1 TH/MM3 (0-0.4); EOSINOPHIL % 0.5 % (0.0-4.0); HEMATOCRIT 31.9 % (35.0-46.0); LYMPH % 12.2 % (9.0-44.0); LYMPHOCYTE # 1.8 TH/MM3 (1.0-4.8); MEAN CELL VOLUME 80.3 FL (80.0-100.0); MEAN CORPUSCULAR HEMOGLOBIN 25.4 PG (27.0-34.0); MEAN CORPUSCULAR HGB CONC 31.6 % (32.0-36.0); MONO % 5.6 % (0.0-8.0); NEUT % 81.3 % (16.0-70.0); PLATELET COUNT 189 TH/MM3 (150-450); RED BLOOD COUNT 3.97 MIL/MM3 (4.00-5.30); RED CELL DISTRIBUTION WIDTH 22.9 % (11.6-17.2); WHITE BLOOD COUNT 14.4 TH/MM3 (4.0-11.0)
[2017-07-08 12:09] LABS: HEMO FLAGS AUTO DIFF
[2017-07-08 12:30] LABS: BICARBONATE 23.6 MEQ/L (21.0-32.0); POTASSIUM 3.6 MEQ/L (3.5-5.1)
[2017-07-08 13:47] LABS: SCAN/DIFF AUTO DIFF CONFIRMED
[2017-07-08 13:48] LABS: OVALOCYTES 1+ (NORMAL)
[2017-07-08] MEDS: ACETAMINOPHEN 325 MG TAB PO PRN (14:14)
--- NOTE | 2017-07-08 14:28 | PD.CONS ---
cc: Matthew Mckeon MD; Jaswant Mendez MD; Del Wagoner MD HPI Service CONSULTATION NOTE FOR SURGICAL ATTENDING, DR. MATTHEW MCKEON General Surgery Consult Requested By Sara RANGEL Reason for Consult Abdominal pain; gallbladder sludge seen on ultrasound Primary Care Physician Drake Farmer MD History of Present Illness This is a 76-year-old female with a past medical history of hypertension, coronary artery disease, COPD, hepatitis (unknown type), and CVA. The patient was in her usual health until yesterday evening. There patient does report that for lunch yesterday she had liver and onions with creamy potatoes. She reports the onset of her abdominal pain was sudden, sharp and rates it an 8 out of 10. She has found some relief using pain medications although she cannot take opioids. An ultrasound of the gallbladder was completed which showed sludge in the gallbladder. She does have an elevated white count at 14.4. Her BUN/creatinine are slightly elevated. She does have a urinary tract infection. She has been started on antibiotics. A General Surgery consultation has been requested for evaluation of the abnormal ultrasound results showing sludge Review of Systems Constitutional: COMPLAINS OF: Change in appetite, DENIES: Fever, Chills Endocrine: DENIES: Polydipsia, Polyuria, Polyphagia Eyes: DENIES: Blurred vision Ears, nose, mouth, throat: DENIES: Hearing loss Respiratory: DENIES: Apneas Cardiovascular: DENIES: Chest pain Gastrointestinal: COMPLAINS OF: Abdominal pain, Nausea, Vomiting Genitourinary: DENIES: Urinary frequency Musculoskeletal: DENIES: Muscle aches, Back pain Integumentary: DENIES: Abnormal pigmentation Hematologic/lymphatic: DENIES: Bruising Immunologic/allergic: DENIES: Eczema Neurologic: DENIES: Headache, Localized weakness Psychiatric: DENIES: Confusion, Mood changes, Depression Other Patient being worked up for a GI bleed by Dr. Levi Wagoner gastroenterology as an outpatient Past Family Social History Past Medical History Hypertension Coronary artery disease COPD Hepatitis (unknown what type) CVA Frequent urinary tract infections Past Surgical History CABG AAA repair Umbilical hernia repair Reported Medications Ezetimibe Clonidine Isosorbide Amlodipine Losartan Aspirin Citalopram BuSpar Omeprazole Lactobacillus Secondary Vitamin B12 Vitamin D Multivitamin Allergies: Coded Allergies: amlodipine (Unverified Allergy, Severe, Cramping, 07/07/17) atorvastatin (Unverified Allergy, Severe, Cramping, 07/07/17) pravastatin (Unverified Allergy, Severe, Cramping, 07/07/17) prednisone (Unverified Allergy, Severe, AL, 07/07/17) simvastatin (Unverified Allergy, Severe, Cramping, 07/07/17) codeine (Unverified Adverse Reaction, Severe, 07/07/17) dopamine (Unverified Adverse Reaction, Severe, 07/07/17) morphine (Unverified Adverse Reaction, Severe, 07/07/17) rivaroxaban (Unverified Adverse Reaction, Severe, 07/07/17) Active Ordered Medications Current Medications Medications (Trade) Dose Ordered Sig/Jose Route Start Time Stop Time Status Last Admin Sodium Chloride 1,000 ml @ 100 mls/hr Q10H IV 07/07/17 23:47 07/08/17 08:05 (NS Flush) 2 ml UNSCH PRN IV FLUSH 07/08/17 00:00 (NS Flush) 2 ml BID IV FLUSH 07/08/17 09:00 (Narcan Inj) 0.4 mg UNSCH PRN IV 07/08/17 00:00 (Norvasc) 5 mg DAILY PO 07/08/17 09:00 07/08/17 08:02 (Ecotrin Ec) 81 mg DAILY PO 07/08/17 09:00 07/08/17 08:03 (Buspar) 5 mg BID PO 07/08/17 09:00 07/08/17 08:03 (CeleXA) 20 mg HS PO 07/08/17 21:00 (Vitamin B12) 1,000 mcg DAILY PO 07/08/17 09:00 07/08/17 08:03 (Zetia) 10 mg HS PO 07/08/17 21:00 (Imdur) 30 mg DAILY PO 07/08/17 09:00 07/08/17 08:02 (Synthroid) 50 mcg DAILY@0600 PO 07/08/17 06:00 07/08/17 06:19 (Cozaar) 50 mg BID PO 07/08/17 09:00 07/08/17 08:02 (Lactinex) 1 tab DAILY PO 07/08/17 09:00 07/08/17 08:02 (Protonix) 20 mg DAILY PO 07/08/17 09:00 07/08/17 08:03 Piperacillin Sod/ Tazobactam Sod 50 ml @ 200 mls/hr Q6H IV 07/08/17 02:00 07/08/17 13:41 (Tylenol) 650 mg Q4H PRN PO 07/08/17 13:45 07/08/17 14:14 Family History Non contributory Social History Denies tobacco use Denies illicit drug use Denies EtOH use Physical Exam Vital Signs Vital Signs Date Time Temp Pulse Resp B/P (MAP) Pulse Ox O2 Delivery O2 Flow Rate FiO2 07/08/17 11:51 98.1 65 18 117/56 (76) 97 07/08/17 07:42 98.2 61 16 152/67 (95) 100 07/08/17 04:33 97.5 63 17 133/63 (86) 100 07/08/17 00:27 98.1 81 18 172/72 (105) 98 Room Air 07/07/17 21:34 84 20 195/93 (127) 97 Room Air 07/07/17 21:34 97 Room Air 07/07/17 20:56 101.4 89 20 149/66 (93) 97 Room Air Physical Exam GENERAL: Pleasant 76 year old female resting in bed in no acute distress. SKIN: Warm and dry. HEAD: Atraumatic. Normocephalic. EYES: Pupils equal and round. No scleral icterus. No injection or drainage. ENT: No nasal bleeding or discharge. Mucous membranes pink and moist. NECK: Trachea midline.. CARDIOVASCULAR: Regular rate and rhythm. RESPIRATORY: No accessory muscle use. Clear to auscultation. Breath sounds equal bilaterally. GASTROINTESTINAL: Abdomen soft, nondistended. + RIGHT CVA tenderness; mildly tender in RUQ with palpation. MUSCULOSKELETAL: Extremities without clubbing, cyanosis, or edema. No obvious deformities. NEUROLOGICAL: Awake and alert. No obvious cranial nerve deficits. Motor grossly within normal limits. Five out of 5 muscle strength in the arms and legs. Normal speech. PSYCHIATRIC: Appropriate mood and affect; insight and judgment normal. Laboratory Laboratory Tests Test 07/07/17 21:40 07/07/17 22:21 07/08/17 11:27 White Blood Count 15.0 14.4 Red Blood Count 4.18 3.97 Hemoglobin 10.4 10.1 Hematocrit 32.5 31.9 Mean Corpuscular Volume 77.7 80.3 Mean Corpuscular Hemoglobin 25.0 25.4 Mean Corpuscular Hemoglobin Concent 32.1 31.6 Red Cell Distribution Width 23.2 22.9 Platelet Count 209 189 Mean Platelet Volume 8.5 8.8 Neutrophils (%) (Auto) 88.0 81.3 Lymphocytes (%) (Auto) 5.0 12.2 Monocytes (%) (Auto) 6.2 5.6 Eosinophils (%) (Auto) 0.3 0.5 Basophils (%) (Auto) 0.5 0.4 Neutrophils # (Auto) 13.2 11.7 Lymphocytes # (Auto) 0.8 1.8 Monocytes # (Auto) 0.9 0.8 Eosinophils # (Auto) 0.0 0.1 Basophils # (Auto) 0.1 0.1 CBC Comment AUTO DIFF AUTO DIFF Differential Comment AUTO DIFF CONFIRMED AUTO DIFF CONFIRMED Prothrombin Time 10.2 Prothromb Time International Ratio 0.9 Activated Partial Thromboplast Time 23.8 Blood Urea Nitrogen 24 19 Creatinine 1.24 1.23 Random Glucose 101 101 Total Protein 7.8 Albumin 3.8 Calcium Level 9.1 7.9 Alkaline Phosphatase 82 Aspartate Amino Transf (AST/SGOT) 20 Alanine Aminotransferase (ALT/SGPT) 17 Total Bilirubin 0.4 Sodium Level 140 142 Potassium Level 3.6 3.6 Chloride Level 107 109 Carbon Dioxide Level 25.1 23.6 Anion Gap 8 9 Estimat Glomerular Filtration Rate 42 42 Lactic Acid Level 1.6 Lipase 131 Urine Color YELLOW Urine Turbidity HAZY Urine pH 6.5 Urine Specific [place] 1.016 Urine Protein TRACE Urine Glucose (UA) NEG Urine Ketones NEG Urine Occult Blood TRACE Urine Nitrite POS Urine Bilirubin NEG Urine Urobilinogen LESS THAN 2.0 Urine Leukocyte Esterase LARGE Urine RBC 7 Urine WBC 89 Urine Squamous Epithelial Cells <1 Urine Renal Epithelial Cells <1 Urine Bacteria OCC Microscopic Urinalysis Comment CULTURE INDICATED Ovalocytes 1+ Date/Time Source Procedure Growth Status 07/08/17 12:40 Blood Peripheral Aerobic Blood Culture Pending Received 07/08/17 12:40 Blood Peripheral Anaerobic Blood Culture Pending Received 07/07/17 22:21 Urine Random Urine Urine Culture - Preliminary Gram Negative Gustavo Resulted Result Diagram: 07/08/17 1127 07/08/17 1127 Imaging Last 48 hours Impressions Gall Bladder Ultrasound 07/08/17 0000 Signed Impressions: Service Date/Time: July 08:13 - CONCLUSION: Gallbladder sludge. Right hydronephrosis Hugo Gilliam MD Abdomen/Pelvis CT 07/07/172129 Signed Impressions: Service Date/Time: Friday, July 07, 2017 22:45 - CONCLUSION: 1. Negative for bowel obstruction, free air or free fluid. 2. Status post stent graft placement in the aorta without significant residual aneurysm. 3. Dilatation of right renal collecting system, mild. No visible calculi. 4. Large hiatal hernia. 5. Degenerative lumbar spine with left paracentral disc protrusion at L4-5. 6. Cholelithiasis. Matthew Miller MD Chest X-Ray 07/07/17 0000 Signed Impressions: Service Date/Time: Friday, July 07, 2017 22:05 - CONCLUSION: 1. Parenchymal scarring and fibrosis in the lungs similar to June 2015. No new infiltrate. Underlying emphysema. Matthew Miller MD Assessment and Plan Problem List: (1) UTI (urinary tract infection) ICD Codes: N39.0 - Urinary tract infection, site not specified Status: Acute (2) Nausea and vomiting ICD Codes: R11.2 - Nausea with vomiting, unspecified Status: Acute (3) Hydronephrosis, right ICD Codes: N13.30 - Unspecified hydronephrosis (4) History of recurrent UTI (urinary tract infection) ICD Codes: Z87.440 - Personal history of urinary (tract) infections (5) Biliary tract imaging abnormality ICD Codes: R93.2 - Abnormal findings on diagnostic imaging of liver and biliary tract Status: Chronic (6) Biliary sludge determined by ultrasound ICD Codes: K83.8 - Other specified diseases of biliary tract Status: Chronic (7) History of AAA (abdominal aortic aneurysm) repair ICD Codes: Z98.890 - Other specified postprocedural states (8) Generalized weakness ICD Codes: R53.1 - Weakness Status: Acute (9) Unsteady gait ICD Codes: R26.81 - Unsteadiness on feet Status: Acute (10) SIRS (systemic inflammatory response syndrome) ICD Codes: R65.10 - Systemic inflammatory response syndrome (SIRS) of non- infectious origin without acute organ dysfunction Status: Acute Assessment and Plan 76 year old female with abdominal pain, nausea/vomting; UTI; US findings of GB sludge -Regular diet -Continue Zosyn---plan to transition to PO antibiotics tomorrow -OOB and mobilize -Pain control -Discussed with patient and daughter---- will treat patient for UTI and recover from this -Will follow up in the morning Discussed Condition With Dr. Mckeon Ms. Kelly + daughter Attending Statement NOTE FOR SURGICAL ATTENDING, DR. MATTHEW MCKEON Patient seen in the emergency room Pain seemed to be more right flank and CVA tenderness. Patient was able to eat a normal lunch today prior to my arrival without any symptomatology With her history of recurrent urinary tract infection and right hydronephrosis, I believe her symptomatology pathology as more consistent with early urinary tract infection. She sees Dr. Heber Murillo her urologist in the very near future. I gave her a copy of the CT scan report showing hydronephrosis I Favor treatment with antibiotics for her urinary tract infection. I'll be happy to see her back in the office when she completes her therapy for her urinary tract infection and evaluated by her urologist for hydronephrosis of unknown etiology. She and her daughter felt very comfortable with this plan In addition Dr. Wagoner is working her up for a GI bleed that apparently is long- standing I agree with above assessment and plan. The exam, history, and the medical decision-making described in the above note were completed with the assistance of the mid-level provider. I reviewed and agree with the findings presented. I attest that I had a [id number] encounter with the patient on the same day, and personally performed and documented my assessment and findings in the medical record. The following services were provided during this hospital visit: Chart data review, vital sign assessments/reviewing monitor data Review of consultations notes if present. Medication orders/review and/or management Ordering and/or reviewing lab tests Ordering and/or interpreting/reviewing x-rays and/or diagnostic studies Care of the patient and discussion of the patient with the care team Documentation time To help prompt me to consider important information that might be impacting today's encounter and assessment, information from prior notes written by myself or my colleagues may have been "brought forward/copy and pasted" into today's note. Problem Qualifiers (1) UTI (urinary tract infection): Qualified Codes: N39.0 - Urinary tract infection, site not specified; R31.9 - Hematuria, unspecified (2) Nausea and vomiting: Qualified Codes: R11.2 - Nausea with vomiting, unspecified Jami Campos Jul 08, 2017 14:27 Matthew Mckeon MD Jul 08, 2017 16:02
[2017-07-08] MEDS ORDERED: FLUCONAZOLE 100 MG TAB PO ONE (14:30)
[2017-07-08] MEDS ORDERED: PILL SPLITTER OTHER PRN (14:45)
[2017-07-08 15:53] VITALS: BP 120/56; PULSE 70; RESP 18; TEMP 97.8; O2SAT 99
[2017-07-08 19:52] VITALS: BP 140/64; PULSE 67; RESP 18; TEMP 97.8; O2SAT 95
[2017-07-08] MEDS ORDERED: CITALOPRAM HYDROBROMIDE 20 MG TAB PO SCH (21:00)
[2017-07-08] MEDS ORDERED: EZETIMIBE 10 MG TAB PO SCH (21:00)
[2017-07-09] MEDS: PIPERACIL-TAZO 3.375 GM PREMIX 50 ML IV SCH ×3 (01:38→14:00)
[2017-07-09] MEDS: ACETAMINOPHEN 325 MG TAB PO PRN (02:06)
[2017-07-09] MEDS: SODIUM CHLOR 0.9% 1000 ML INJ 1,000 ML IV SCH (05:47)
[2017-07-09] MEDS: LEVOTHYROXINE SODIUM 50 MCG TAB PO SCH (05:52)
[2017-07-09 08:00] VITALS: BP 148/55; PULSE 70; RESP 16; TEMP 98.2; O2SAT 94
[2017-07-09] MEDS: busPIRone HCL 5 MG TAB PO SCH (09:00)
[2017-07-09] MEDS: ISOSORBIDE MONONITRATE 30 MG TAB PO SCH (09:00)
[2017-07-09] MEDS: CYANOCOBALAMIN 1,000 MCG TAB PO SCH (09:00)
[2017-07-09] MEDS: SODIUM CHLORIDE 0.9% FLUSH 10 ML FLUSH IV FLUSH SCH (09:00)
[2017-07-09] MEDS: PANTOPRAZOLE SOD 20 MG DELAYED RELEASE TAB PO SCH (09:00)
[2017-07-09] MEDS: LOSARTAN 50 MG TAB PO SCH (09:00)
[2017-07-09] MEDS: ASPIRIN EC 81 MG TABEC PO SCH (09:00)
[2017-07-09] MEDS: LACTOBACILLUS ACIDOPHILUS TAB PO SCH (09:00)
[2017-07-09] MEDS: amLODIPine BESYLATE 5 MG TAB PO SCH (09:00)
--- NOTE | 2017-07-09 11:29 | HHI.PR ---
cc: Ishmael Mckeon MD Subjective Subjective Notes PROGRESS NOTE FOR SURGICAL ATTENDING, DR. ISHMAEL MCKEON Resting in bed Tolerated dinner last night with no issues Objective Vitals/I&O Vital Signs Date Time Temp Pulse Resp B/P (MAP) Pulse Ox O2 Delivery O2 Flow Rate FiO2 07/09/17 08:00 98.2 70 16 148/55 (60) 94 07/08/17 00:27 Room Air Labs Laboratory Tests Test 07/07/17 21:40 07/07/17 22:21 07/08/17 11:27 Prothrombin Time 10.2 SEC Prothromb Time International Ratio 0.9 RATIO Activated Partial Thromboplast Time 23.8 SEC Lactic Acid Level 1.6 mmol/L Blood Urea Nitrogen 24 MG/DL 19 MG/DL Creatinine 1.24 MG/DL 1.23 MG/DL Random Glucose 101 MG/DL 101 MG/DL Total Protein 7.8 GM/DL Albumin 3.8 GM/DL Calcium Level 9.1 MG/DL 7.9 MG/DL Alkaline Phosphatase 82 U/L Aspartate Amino Transf (AST/SGOT) 20 U/L Alanine Aminotransferase (ALT/SGPT) 17 U/L Total Bilirubin 0.4 MG/DL Sodium Level 140 MEQ/L 142 MEQ/L Potassium Level 3.6 MEQ/L 3.6 MEQ/L Chloride Level 107 MEQ/L 109 MEQ/L Carbon Dioxide Level 25.1 MEQ/L 23.6 MEQ/L Lipase 131 U/L Urine Color YELLOW Urine Turbidity HAZY Urine pH 6.5 Urine Specific [place] 1.016 Urine Protein TRACE mg/dL Urine Glucose (UA) NEG mg/dL Urine Ketones NEG mg/dL Urine Occult Blood TRACE Urine Nitrite POS Urine Bilirubin NEG Urine Urobilinogen LESS THAN 2.0 MG/DL Urine Leukocyte Esterase LARGE Urine RBC 7 /hpf Urine WBC 89 /hpf Urine Squamous Epithelial Cells <1 /hpf Urine Renal Epithelial Cells <1 /hpf Urine Bacteria OCC /hpf Microscopic Urinalysis Comment CULTURE INDICATED White Blood Count 14.4 TH/MM3 Red Blood Count 3.97 MIL/MM3 Hemoglobin 10.1 GM/DL Hematocrit 31.9 % Mean Corpuscular Volume 80.3 FL Mean Corpuscular Hemoglobin 25.4 PG Mean Corpuscular Hemoglobin Concent 31.6 % Red Cell Distribution Width 22.9 % Platelet Count 189 TH/MM3 Mean Platelet Volume 8.8 FL Neutrophils (%) (Auto) 81.3 % Lymphocytes (%) (Auto) 12.2 % Monocytes (%) (Auto) 5.6 % Eosinophils (%) (Auto) 0.5 % Basophils (%) (Auto) 0.4 % Neutrophils # (Auto) 11.7 TH/MM3 Lymphocytes # (Auto) 1.8 TH/MM3 Monocytes # (Auto) 0.8 TH/MM3 Eosinophils # (Auto) 0.1 TH/MM3 Basophils # (Auto) 0.1 TH/MM3 CBC Comment AUTO DIFF Differential Comment AUTO DIFF CONFIRMED Ovalocytes 1+ Anion Gap 9 MEQ/L Estimat Glomerular Filtration Rate 42 ML/MIN Date/Time Source Procedure Growth Status 07/08/17 12:40 Blood Peripheral Aerobic Blood Culture - Preliminary NO GROWTH IN 1 DAY Resulted 07/08/17 12:40 Blood Peripheral Anaerobic Blood Culture - Preliminary NO GROWTH IN 1 DAY Resulted 07/07/17 22:21 Urine Random Urine Urine Culture - Final Escherichia Coli Complete Radiology Last 48 hours Impressions Gall Bladder Ultrasound 07/08/17 0000 Signed Impressions: Service Date/Time: July 08:13 - CONCLUSION: Gallbladder sludge. Right hydronephrosis Hugo Gilliam MD Abdomen/Pelvis CT 07/07/17 2130 Signed Impressions: Service Date/Time: Friday, July 07, 2017 22:45 - CONCLUSION: 1. Negative for bowel obstruction, free air or free fluid. 2. Status post stent graft placement in the aorta without significant residual aneurysm. 3. Dilatation of right renal collecting system, mild. No visible calculi. 4. Large hiatal hernia. 5. Degenerative lumbar spine with left paracentral disc protrusion at L4-5. 6. Cholelithiasis. Ishmael Miller MD Chest X-Ray 07/07/17 0000 Signed Impressions: Service Date/Time: Friday, July 07, 2017 22:05 - CONCLUSION: 1. Parenchymal scarring and fibrosis in the lungs similar to June 2015. No new infiltrate. Underlying emphysema. Ishmael Miller MD Cardiovascular: Regular Lungs: Clear Abdomen: Other (mild RUQ pain with palpation ) Extremities: No edema A/P Problem List: (1) UTI (urinary tract infection) ICD Codes: N39.0 - Urinary tract infection, site not specified Status: Acute (2) Nausea and vomiting ICD Codes: R11.2 - Nausea with vomiting, unspecified Status: Resolved (3) Hydronephrosis, right ICD Codes: N13.30 - Unspecified hydronephrosis Status: Chronic (4) History of recurrent UTI (urinary tract infection) ICD Codes: Z87.440 - Personal history of urinary (tract) infections Status: Chronic (5) Biliary tract imaging abnormality ICD Codes: R93.2 - Abnormal findings on diagnostic imaging of liver and biliary tract Status: Chronic (6) Biliary sludge determined by ultrasound ICD Codes: K83.8 - Other specified diseases of biliary tract Status: Chronic (7) History of AAA (abdominal aortic aneurysm) repair ICD Codes: Z98.890 - Other specified postprocedural states Status: Chronic (8) Generalized weakness ICD Codes: R53.1 - Weakness Status: Resolved (9) Unsteady gait ICD Codes: R26.81 - Unsteadiness on feet Status: Acute (10) SIRS (systemic inflammatory response syndrome) ICD Codes: R65.10 - Systemic inflammatory response syndrome (SIRS) of non- infectious origin without acute organ dysfunction Status: Acute Assessment and Plan 76 year old female with UTI; abdominal pain; imaging shows GS sludge -Regular diet -Transition to PO antibiotics per primary team -OOB -Pain control -Treat UTI and follow up in office in a few weeks -GS clear for DC Follow up as outpt Attending Statement PROGRESS NOTE FOR SURGICAL ATTENDING, DR. ISHMAEL MCKEON I agree with above assessment and plan. The exam, history, and the medical decision-making described in the above note were completed with the assistance of the mid-level provider. I reviewed and agree with the findings presented. pt seen up in chair feels much better told diet cults pos for UTI E coli change to PO abx fu as outpatient to reevaluate gb if needed pt has my card I attest that I had a [id number] encounter with the patient on the same day, and personally performed and documented my assessment and findings in the medical record. The following services were provided during this hospital visit: Chart data review, vital sign assessments/reviewing monitor data Review of consultations notes if present. Medication orders/review and/or management Ordering and/or reviewing lab tests Ordering and/or interpreting/reviewing x-rays and/or diagnostic studies Care of the patient and discussion of the patient with the care team Documentation time To help prompt me to consider important information that might be impacting today's encounter and assessment, information from prior notes written by myself or my colleagues may have been "brought forward/copy and pasted" into today's note. Problem Qualifiers (1) UTI (urinary tract infection): Qualified Codes: N10 - Acute pyelonephritis (2) Nausea and vomiting: Qualified Codes: R11.2 - Nausea with vomiting, unspecified Jami Campos Jul 09, 2017 11:28 Ishmael Mckeon MD Jul 09, 2017 14:06
[2017-07-09 12:00] VITALS: BP 135/63; PULSE 58; RESP 16; TEMP 98.5; O2SAT 99
[2017-07-09] MEDS ORDERED: AUGM875T3 PO (12:44)
--- NOTE | 2017-07-09 12:44 | HHI.PR ---
Subjective Remarks Follow up for cholelithiasis, possible UTI. Patient is currently doing well. No acute concerns. No fever, chills. Surgery cleared for discharge. Objective Vitals Vital Signs Date Time Temp Pulse Resp B/P (MAP) Pulse Ox O2 Delivery O2 Flow Rate FiO2 07/09/17 08:00 98.2 70 16 148/55 (86) 94 07/08/17 19:52 97.8 67 18 140/64 (89) 95 07/08/17 15:53 97.8 70 18 120/56 (77) 99 Result Diagram: 07/08/17 1127 07/08/17 1127 Imaging Last Impressions Gall Bladder Ultrasound 07/08/17 0000 Signed Impressions: Service Date/Time: July 08:13 - CONCLUSION: Gallbladder sludge. Right hydronephrosis Hugo Gilliam MD Abdomen/Pelvis CT 07/07/170 Signed Impressions: Service Date/Time: Friday, July 07, 2017 22:45 - CONCLUSION: 1. Negative for bowel obstruction, free air or free fluid. 2. Status post stent graft placement in the aorta without significant residual aneurysm. 3. Dilatation of right renal collecting system, mild. No visible calculi. 4. Large hiatal hernia. 5. Degenerative lumbar spine with left paracentral disc protrusion at L4-5. 6. Cholelithiasis. Matthew Miller MD Chest X-Ray 07/07/17 0000 Signed Impressions: Service Date/Time: Friday, July 07, 2017 22:05 - CONCLUSION: 1. Parenchymal scarring and fibrosis in the lungs similar to June 2015. No new infiltrate. Underlying emphysema. Matthew Miller MD Objective Remarks GENERAL: AOX3, NAD. SKIN: Warm and dry. HEAD: Normocephalic. EYES: No scleral icterus. No injection or drainage. NECK: Supple, trachea midline. No JVD or lymphadenopathy. CARDIOVASCULAR: Regular rate and rhythm without murmurs, gallops, or rubs. RESPIRATORY: Breath sounds equal bilaterally. No accessory muscle use. GASTROINTESTINAL: Abdomen soft, non-tender, nondistended. MUSCULOSKELETAL: No cyanosis, or edema. BACK: Nontender without obvious deformity. No CVA tenderness. Procedures None. A/P Assessment and Plan 76-year-old female with hx of HTN, CAD s/p CABG 1996, COPD, CVA, presents with acute onset of chills, abdominal pain, nausea, and vomiting. Sepsis: patient meets sepsis criteria with fever Tmax 101.4, +leukocytosis WBC 15.0K and suspect source +UTI, possible cholecystitis. Lactic acid 1.6. -Surgery evaluated patient with regards to cholelithiasis - No surgical intervention. Will continue abx on discharge. UTI: UA with +nitrites, large leuks, WBCs, bacteria. With fever and leukocytosis. -Urine cx shows E. Coli, sensitive to PCN - Will continue Augmentin on discharge to cover both cholecystitis as well as UTI. - Patient has appt urology and would like to discuss regarding frequent UTI. - Advised patient to consider going to an ID physician (Dr. Bull) as well. Cholelithiasis, possible Cholecystitis: fever and leukocytosis. +RUQ pain/+ Mcpherson's sign on exam. CT abd with cholelithiasis. GB U/S with gallbladder sludge. -No surgery. Patient was advised to follow up with surgery in the outpatient setting. - Will continue Augmentin for 10 days. Discharge patient to home Condition on discharge: Improved Heart healthy Diet as tolerated Ad Nuz[place] activity Rx written: Augmentin x 10 days. Follow-up with primary care physician PRN, Surgery within two week Jose Menon DO Jul 09, 2017 12:44
== END 2017-07-09 16:08 | disposition home or self-care (01) | DRG 872 ==
LOC: NEPE 20:53 → NEDA 23:49 → NEPFCDU 07-08 03:37 → OBSVTOIN 07-08 07:10 → N07A 07-09 00:55
PROVIDERS: ADMIT Hospitalist; ATTEND Hospitalist
DX: A41.9 Sepsis, unspecified organism (principal); J44.9 Chronic obstructive pulmonary disease, unspecified; N13.6 Pyonephrosis; I10 Essential (primary) hypertension; I25.10 Atherosclerotic heart disease of native coronary artery without angina pectoris; K80.20 Calculus of gallbladder without cholecystitis without obstruction; B96.89 Other specified bacterial agents as the cause of diseases classified elsewhere; R93.2 Abnormal findings on diagnostic imaging of liver and biliary tract; Z95.1 Presence of aortocoronary bypass graft; Z86.73 Personal history of transient ischemic attack (TIA), and cerebral infarction without residual deficits
CPT/HCPCS: 71010; 74177; 76705; 80048; 80053; 81001; 83605; 83690; 85025; 85610; 85730; 87040; 87077; 87086; 87186; 96361; 96374; 96375; J0696; J2405; J2543; J7030; Q9967

== ENCOUNTER 2018-03-01 20:23 | Observation (INO) | payer MEDICARE, OTHER ==
[~2018-03-01] VITALS: Ht 165.1 cm; Wt 69.0 kg
[~2018-03-01 20:23] MED LIST changes: +AUGM875T3 PO; -OMEP20TA PO; +OMEP20TA93 PO
[2018-03-01 20:45] VITALS: BP 185/93; PULSE 89; RESP 22; O2SAT 97
[2018-03-01] MEDS ORDERED: KETOROLAC TROMETHAMINE 60 MG/2 ML (IM) VIAL IM ONE (21:00)
[2018-03-01 21:08] LABS: AUTOMATED NEUTROPHIL # 10.3 TH/MM3 (1.8-7.7); BASOPHIL # 0.1 TH/MM3 (0-0.2); BASOPHIL % 0.8 % (0.0-2.0); EOSINOPHIL # 0.3 TH/MM3 (0-0.4); HEMATOCRIT 32.1 % (35.0-46.0); HEMOGLOBIN 10.2 GM/DL (11.6-15.3); LYMPHOCYTE # 2.7 TH/MM3 (1.0-4.8); MEAN CELL VOLUME 78.4 FL (80.0-100.0); MEAN CORPUSCULAR HGB CONC 31.9 % (32.0-36.0); MEAN PLATELET VOLUME 8.5 FL (7.0-11.0); MONO % 6.7 % (0.0-8.0); NEUT % 71.5 % (16.0-70.0); PLATELET COUNT 354 TH/MM3 (150-450); RED CELL DISTRIBUTION WIDTH 18.2 % (11.6-17.2); WHITE BLOOD COUNT 14.4 TH/MM3 (4.0-11.0)
[2018-03-01 21:19] LABS: PROTHROMBIN TIME - PATIENT 10.1 SEC (9.8-11.6)
--- NOTE | 2018-03-01 21:22 | RADRPT ---
EXAM DATE/TIME: 03/01/2018 20:57 [facility] COMPARISON: CHEST SINGLE AP, July 07, 2017, 22:05. INDICATIONS : Short of breath. MEDICAL HISTORY : None. SURGICAL HISTORY : CABG. ENCOUNTER: Initial ACUITY: 1 day PAIN SCORE: 0/10 LOCATION: Bilateral chest FINDINGS: Again seen is median sternotomy with extensive parenchymal scarring and fibrosis and upward hilar ret raction. No new consolidation or effusion. Chronic blunting of the costophrenic angles. Underlying em physema. CONCLUSION: 1. Parenchymal scarring and fibrosis similar to July 2017. Matthew Miller MD on March 01, 2018 at 21:19 Board Certified Radiologist. This report was verified electronically.
[2018-03-01 21:25] LABS: ALBUMIN 4.3 GM/DL (3.4-5.0); AST (GOT) 20 U/L (15-37); BICARBONATE 20.6 MEQ/L (21.0-32.0); BLOOD UREA NITROGEN 27 MG/DL (7-18); CALCIUM 9.5 MG/DL (8.5-10.1); CHLORIDE 106 MEQ/L (98-107); CREATININE 1.53 MG/DL (0.50-1.00); GLOMERULAR FILTRATION RATE 33 ML/MIN (>89); GLUCOSE,RANDOM 115 MG/DL (74-106); SODIUM (NA) 139 MEQ/L (136-145)
[2018-03-01 21:29] LABS: ALKALINE PHOSPHATASE 82 U/L (45-117); ALT (GPT) 14 U/L (10-53); TOTAL BILIRUBIN ADULT 0.4 MG/DL (0.2-1.0); TOTAL PROTEIN 7.8 GM/DL (6.4-8.2)
--- NOTE | 2018-03-01 21:41 | RADRPT ---
EXAM DATE/TIME: 03/01/2018 21:01 [facility] COMPARISON: No previous studies available for comparison. INDICATIONS : Pelvic pain after fall months ago. MEDICAL HISTORY : None. SURGICAL HISTORY : None. ENCOUNTER: Initial ACUITY: 3 months PAIN SCORE: 10/10 LOCATION: Bilateral pelvis and lower back. FINDINGS: A single frontal view of the pelvis demonstrates no evidence of fracture. The bony pelvic ring is in tact. Bony mineralization is decreased. The soft tissues are intact. CONCLUSION: 1. No acute findings. Bones are osteopenic. Iliac stents present. Matthew Miller MD on March 01, 2018 at 21:27 Board Certified Radiologist. This report was verified electronically.
--- NOTE | 2018-03-01 21:54 | RADRPT ---
EXAM DATE/TIME: 03/01/2018 21:02 [facility] COMPARISON: No previous studies available for comparison. INDICATIONS : Left femur pain after fall months ago. MEDICAL HISTORY : None. SURGICAL HISTORY : None. ENCOUNTER: Initial ACUITY: 3 months PAIN SCORE: 10/10 LOCATION: Left proximal femur. FINDINGS: Two view examination of the left femur demonstrates no evidence of fracture or dislocation. Bony min eralization is decreased. The soft tissue structures are intact. CONCLUSION: 1. No acute findings. Decreased bone mineralization. Matthew Miller MD on March 01, 2018 at 21:50 Board Certified Radiologist. This report was verified electronically.
--- NOTE | 2018-03-01 22:20 | PD ---
HPI Chief Complaint: Hip Injury Time Seen by Provider: 20:43 Travel History International Travel<30 days: No Contact w/Intl Traveler<30days: No Traveled to known affect area: No History of Present Illness HPI 77y female with a history of hip pain presents to the ED with left hip pain after sitting on a toilet today. Says her pain started as soon as she was standing up from the toilet. Patient points to the left trochanteric bursa. Says the pain is constant, severe and radiates down the leg. She denies any numbness tingling. Patient says the pain radiates from the lateral thigh to the anterior thigh. Says that over the last week the pain has increased. Of note, patient fell in October and had evaluation with a CT at [facility]. There were no fractures noted. Says that she previously received steroid injections into the thigh which helped for 1 day however returned the next day. Patient says she saw orthopedics in November for the pain but this did not decrease the patient's pain either. Patient has taken meloxicam, Aleve , Tylenol without significant relief. Patient says that when she takes oral prednisone she hallucinates prefers not to have any of this medication. Denies back pain. She is followed with her primary care physician but no other specialist such as a neurologist or neurosurgeon. PFSH Past Medical History Hx Anticoagulant Therapy: Yes Arthritis: Yes Asthma: No Blood Disorders: No Heart Rhythm Problems: No Cancer: No Cardiovascular Problems: Yes (BYPASS) High Cholesterol: Yes Chemotherapy: No Chest Pain: No Congestive Heart Failure: No COPD: Yes Cerebrovascular Accident: Yes Diabetes: No Diminished Hearing: No Endocrine: Yes Gastrointestinal Disorders: Yes (hernia) Genitourinary: Yes (FREQUENT KIDNEY INFECTIONS) Hypertension: Yes Immune Disorder: No Musculoskeletal: Yes (arthritis) Neurologic: Yes Psychiatric: No Reproductive: No Respiratory: Yes Radiation Therapy: No Renal Failure: Yes Sleep Apnea: No Thyroid Disease: Yes Menopausal: Yes Tubal Ligation: Yes Past Surgical History Abdominal Surgery: Yes (hernia repair) Cardiac Surgery: Yes (open heart) Coronary Artery Bypass Graft: Yes Gynecologic Surgery: Yes (tubal ligation) Other Surgery: Yes (open heart, tubal ligation, hernia repair) Social History Alcohol Use: Yes (OCC) Tobacco Use: No Substance Use: No Allergies-Medications (Allergen,Severity, Reaction): Coded Allergies: atorvastatin (Unverified Allergy, Severe, Cramping, 03/01/18) pravastatin (Unverified Allergy, Severe, Cramping, 03/01/18) prednisone (Unverified Allergy, Severe, AL, 03/01/18) simvastatin (Unverified Allergy, Severe, Cramping, 03/01/18) codeine (Unverified Adverse Reaction, Severe, 03/01/18) dopamine (Unverified Adverse Reaction, Severe, 03/01/18) morphine (Unverified Adverse Reaction, Severe, 03/01/18) rivaroxaban (Unverified Adverse Reaction, Severe, 03/01/18) Reported Meds & Prescriptions Reported Meds & Active Scripts Active Reported Clonidine (Clonidine HCl) 0.1 Mg Tab 0.1 Mg PO BID PRN Ezetimibe 10 Mg Tab 10 Mg PO HS Citalopram (Citalopram Hydrobromide) 20 Mg Tab 20 Mg PO HS Multi Vitamin Daily (Multiple Vitamin) 1 Tab Tab 1 Tab PO DAILY Acidophilus Capsule (L. Acidophilus/Pectin, [place]) 1 Each Capsule 1 Cap PO DAILY Vitamin D-3 (Cholecalciferol) 2,000 Unit Tab 1 Cap PO DAILY Amlodipine (Amlodipine Besylate) 5 Mg Tab 5 Mg PO DAILY Buspirone (Buspirone HCl) 5 Mg Tab 5 Mg PO BID Levothyroxine (Levothyroxine Sodium) 50 Mcg Tab 50 Mcg PO DAILY Isosorbide Mononitrate ER (Isosorbide Mononitrate) 30 Mg Patrick 30 Mg PO DAILY Losartan (Losartan Potassium) 50 Mg Tab 50 Mg PO BID Aspir-Low (Aspirin) 81 Mg Tabdr 81 Mg PO DAILY Vitamin B-12 (Cyanocobalamin) 1,000 Mcg Tab 1,000 Mcg PO DAILY Omeprazole 20 Mg Tab 20 Mg PO DAILY Review of Systems Except as stated in HPI: all other systems reviewed are Neg Physical Exam Narrative GENERAL: Well-developed, well-nourished in moderate distress SKIN: Focused skin assessment warm/dry. HEAD: Atraumatic. Normocephalic. EYES: Pupils equal and round. No scleral icterus. No injection or drainage. ENT: No nasal bleeding or discharge. Mucous membranes pink and moist. NECK: Trachea midline. No JVD. CARDIOVASCULAR: Regular rate and rhythm. No murmur appreciated. RESPIRATORY: No accessory muscle use. Clear to auscultation. Breath sounds equal bilaterally. GASTROINTESTINAL: Abdomen soft, non-tender, nondistended. Hepatic and splenic margins not palpable. MUSCULOSKELETAL: No obvious deformities. No clubbing. No cyanosis. No edema. TTP to bilateral lower extremities without edema or erythema. Neurovascularly intact. NEUROLOGICAL: Awake and alert. No obvious cranial nerve deficits. Motor grossly within normal limits. Normal speech. PSYCHIATRIC: Appropriate mood and affect; insight and judgment normal. Data Data Last Documented VS Vital Signs Date Time Temp Pulse Resp B/P (MAP) Pulse Ox O2 Delivery O2 Flow Rate FiO2 03/02/18 00:26 84 20 138/72 (94) 98 Room Air Orders Orders Electrocardiogram (03/01/18 20:43) Complete Blood Count With Diff (03/01/18 20:43) Comprehensive Metabolic Panel (03/01/18 20:43) Prothrombin Time / Inr (Pt) (03/01/18 20:43) Act Partial Throm Time (Ptt) (03/01/18 20:43) Urinalysis - C+S If Indicated (03/01/18 20:43) Chest, Single Ap (03/01/18 20:43) Femur (Ap & Lat/2vws) (03/01/18 20:43) Iv Access Insert/Monitor (03/01/18 20:43) Oximetry (03/01/18 20:43) Ice/Cold Pack (03/01/18 20:43) Ecg Monitoring (03/01/18 20:43) Pelvis, Ap Only (Routine) (03/01/18 20:43) Ketorolac Inj (Toradol Inj) (03/01/18 21:00) Westergren Sedimentation Rate (03/01/18 22:10) C-Reactive Protein (Crp) (03/01/18 22:10) Orphenadrine Inj (Norflex Inj) (03/01/18 23:15) Urine Culture (03/01/18 23:00) Ct Hip W/O Contrast (03/01/18 ) Admit Order (Ed Use Only) (03/02/18 00:45) Labs Laboratory Tests Test 03/01/18 20:50 03/01/18 23:00 White Blood Count 14.4 TH/MM3 Red Blood Count 4.10 MIL/MM3 Hemoglobin 10.2 GM/DL Hematocrit 32.1 % Mean Corpuscular Volume 78.4 FL Mean Corpuscular Hemoglobin 25.0 PG Mean Corpuscular Hemoglobin Concent 31.9 % Red Cell Distribution Width 18.2 % Platelet Count 354 TH/MM3 Mean Platelet Volume 8.5 FL Neutrophils (%) (Auto) 71.5 % Lymphocytes (%) (Auto) 19.0 % Monocytes (%) (Auto) 6.7 % Eosinophils (%) (Auto) 2.0 % Basophils (%) (Auto) 0.8 % Neutrophils # (Auto) 10.3 TH/MM3 Lymphocytes # (Auto) 2.7 TH/MM3 Monocytes # (Auto) 1.0 TH/MM3 Eosinophils # (Auto) 0.3 TH/MM3 Basophils # (Auto) 0.1 TH/MM3 CBC Comment DIFF FINAL Differential Comment Erythrocyte Sedimentation Rate 25 mm/hr Prothrombin Time 10.1 SEC Prothromb Time International Ratio 1.0 RATIO Activated Partial Thromboplast Time 22.6 SEC Blood Urea Nitrogen 27 MG/DL Creatinine 1.53 MG/DL Random Glucose 115 MG/DL Total Protein 7.8 GM/DL Albumin 4.3 GM/DL Calcium Level 9.5 MG/DL Alkaline Phosphatase 82 U/L Aspartate Amino Transf (AST/SGOT) 20 U/L Alanine Aminotransferase (ALT/SGPT) 14 U/L Total Bilirubin 0.4 MG/DL Sodium Level 139 MEQ/L Potassium Level 4.0 MEQ/L Chloride Level 106 MEQ/L Carbon Dioxide Level 20.6 MEQ/L Anion Gap 12 MEQ/L Estimat Glomerular Filtration Rate 33 ML/MIN C-Reactive Protein LESS THAN 0.29 MG/DL Urine Color YELLOW Urine Turbidity HAZY Urine pH 6.5 Urine Specific [place] 1.015 Urine Protein 30 mg/dL Urine Glucose (UA) NEG mg/dL Urine Ketones NEG mg/dL Urine Occult Blood TRACE Urine Nitrite POS Urine Bilirubin NEG Urine Urobilinogen LESS THAN 2.0 MG/DL Urine Leukocyte Esterase LARGE Urine RBC 4 /hpf Urine WBC /hpf Urine WBC Clumps FEW Urine Squamous Epithelial Cells 1 /hpf Urine Transitional Epithelial Cells <1 /hpf Urine Renal Epithelial Cells <1 /hpf Urine Bacteria OCC /hpf Urine Hyaline Casts 2 /lpf Microscopic Urinalysis Comment CATH-CULTURE IND MDM Medical Decision Making Medical Screen Exam Complete: Yes Emergency Medical Condition: Yes Differential Diagnosis Trochanteric bursitis, hip fracture, sciatica Narrative Course 77y female with a history of hip pain presents to the ED with left hip pain after sitting on a toilet today. Says her pain started as soon as she was standing up from the toilet. Patient points to the left trochanteric bursa. Says the pain is constant, severe and radiates down the leg. She denies any numbness tingling. Patient says the pain radiates from the lateral thigh to the anterior thigh. Says that over the last week the pain has increased. Of note, patient fell in October and had evaluation with a CT at [facility]. There were no fractures noted. Says that she previously received steroid injections into the thigh which helped for 1 day however returned the next day. Patient says she saw orthopedics in November for the pain but this did not decrease the patient's pain either. Patient has taken meloxicam, Aleve , Tylenol without significant relief. Patient says that when she takes oral prednisone she hallucinates prefers not to have any of this medication. Denies back pain. She is followed with her primary care physician but no other specialist such as a neurologist or neurosurgeon. Vital signs stable. Physical exam findings: Tenderness to palpation of the bilateral lower extremity is without edema or erythema. Neurovascularly intact. Tenderness palpation to the left trochanteric bursa. CBC & BMP Diagram 03/01/18 20:50 Total Protein 7.8, Albumin 4.3, Calcium Level 9.5, Alkaline Phosphatase 82, Aspartate Amino Transf (AST/SGOT) 20, Alanine Aminotransferase (ALT/SGPT) 14, Total Bilirubin 0.4 ESR 25, CRP 0.29 Toradol administered. This did decrease her pain slightly. Norflex administered for pain, possible muscle spasms. CT hip and pelvis ordered for evaluation of her pain. I spoke with Dr. Barraza who said she would evaluate the patient prior to admission. CT pending as of admission. Please see Dr. Waldron's note for further info and dispo. Diagnosis Primary Impression: Hip pain Qualified Codes: M25.552 - Pain in left hip Additional Impression: Intractable pain Scripts Cefuroxime (Cefuroxime) 500 Mg Tab 500 MG PO BID for Infection for 5 Days, #10 TAB 0 Refills Prov: Saloni Wynne PA-C 03/03/18 Tramadol (Ultram) 50 Mg Tab 50 MG PO Q6H Y for pain for 3 Days, #12 TAB Prov: Saloni Wynne PA-C 03/03/18 Cyclobenzaprine (Flexeril) 10 Mg Tab 5 MG PO Q8H Y for muscle pain/spasm, #12 TAB Prov: Saloni Wynne PA-C 03/03/18 Condition: Stable Lupe David March 01, 2018 22:20
[2018-03-01 23:11] LABS: BACTERIA, URINE OCC /hpf; BILIRUBIN, URINE NEG (NEG); BLOOD, URINE TRACE (NEG); GLUCOSE,URINE NEG (NEG); HYALINE CAST, URINE 2 /lpf (RARE); KETONE, URINE NEG (NEG); NITRITE,URINE POS (NEG); PH, URINE 6.5 (5.0-8.5); RENAL EPITHELIAL CELLS <1 /hpf; SQUAMOUS EPITHELIAL CELL URINE 1 /hpf (0-5); TRANSITIONAL EPI CELLS, URINE <1 /hpf; URINE COLOR YELLOW (YELLW/STRAW); URINE LEUKOCYTE ESTERASE LARGE (NEG); WHITE BLOOD CELL CLUMPS FEW
[2018-03-01] MEDS ORDERED: ORPHENADRINE INJ 60 MG/2 ML AMP IM ONE (23:15)
[2018-03-02] VITALS (7 sets, daily range): BP systolic 110–138; BP diastolic 55–72; PULSE 70–84; RESP 16–20; TEMP 97.5–98.5; O2SAT 94–99
--- NOTE | 2018-03-02 00:28 | RADRPT ---
EXAM DATE/TIME: 03/02/2018 00:07 [facility] COMPARISON: FEMUR LEFT (AP & LAT/2VWS), March 01, 2018, 21:02. INDICATIONS : Left hip pain for two weeks; no known injury. RADIATION DOSE: 46.29 CTDIvol (mGy) MEDICAL HISTORY : Cardiovascular disease. Renal failure, chronic. Arthritis SURGICAL HISTORY : CABG Tubal ligation. ENCOUNTER: Initial ACUITY: 1 day PAIN SCALE: 9/10 LOCATION: Left hip TECHNIQUE: Volumetric scanning of the hip was performed. Using automated exposure control and adjustment of the mA and/or kV according to patient size, radiation dose was kept as low as reasonably achievable to o btain optimal diagnostic quality images. DICOM format image data is available electronically for rev iew and comparison. FINDINGS: BONES: No evidence of fracture. Alignment is within normal limits. JOINTS: No evidence of joint narrowing or effusion. SOFT TISSUES: Muscles, tendons and neurovascular structures are grossly unremarkable. No evidence of mass, organize d fluid collection, or foreign body. Severe diverticular disease of the sigmoid without diverticuliti s. Patient appears to have undergone endovascular stent graft repair for abdominal aortic aneurysm. CONCLUSION: 1. No fracture. 2. Diverticular disease of the sigmoid colon without diverticulitis Enrique Guzman MD on March 02, 2018 at 0:24 Board Certified Radiologist. This report was verified electronically.
[2018-03-02] MEDS ORDERED: BISACODYL 10 MG SUPP RECTAL PRN (00:45)
[2018-03-02] MEDS ORDERED: SENNOSIDES 8.6 MG TAB PO PRN (00:45)
[2018-03-02] MEDS ORDERED: LACTULOSE SYRUP 20 GM/30 ML CUP PO PRN (00:45)
[2018-03-02] MEDS ORDERED: ACETAMINOPHEN 325 MG TAB PO PRN (00:45)
[2018-03-02] MEDS ORDERED: ONDANSETRON HCL 4 MG/2 ML VIAL IVP PRN (00:45)
[2018-03-02] MEDS ORDERED: MAGNESIUM HYDROXIDE SUSP 30 ML CUP PO PRN (00:45)
[2018-03-02] MEDS ORDERED: NALOXONE HCL 0.4 MG/ML AMP IV PUSH PRN (00:45)
[2018-03-02] MEDS ORDERED: SODIUM CHLORIDE 0.9% FLUSH 10 ML FLUSH IV FLUSH PRN (00:45)
--- NOTE | 2018-03-02 00:52 | PD ---
Physical Exam Narrative Please see PA note for full history and physical per patient reportedly fell in October and since that time has had recurrent left hip and lower extremity pain. She was admitted to [facility] and was diagnosed with arthritis. She has been receiving injections from her doctor, without relief of symptoms. Denies any acute trauma but states that the pain is gotten worse for the past week. Is been taken Aleve, Tylenol, meloxicam. No fever, or chills, but reports nausea but no vomiting. On exam she is afebrile vital signs are stable. Left hip is tender to palpation with decreased range of motion secondary to pain but the patient can move the extremity. Not warm to touch or erythematous. X-ray and CT showed no acute fracture. Normal sed rate and CRP, elevated WBC count. Patient denies any urinary frequency or dysuria, UA was positive for nitrites and leukocyte esterase. Urine culture is pending, but she states that she has recurrent urinary tract infections which are treated successfully with Macrobid. We will give Macrobid 100 mg p.o. in the ER. Patient was also given pain medication in the ER, had persistent pain. The patient is admitted to observation for intractable pain. Data Data Last Documented VS Vital Signs Date Time Temp Pulse Resp B/P (MAP) Pulse Ox O2 Delivery O2 Flow Rate FiO2 03/02/18 00:26 84 20 138/72 (94) 98 Room Air Orders Orders Electrocardiogram (03/01/18 20:43) Complete Blood Count With Diff (03/01/18 20:43) Comprehensive Metabolic Panel (03/01/18 20:43) Prothrombin Time / Inr (Pt) (03/01/18 20:43) Act Partial Throm Time (Ptt) (03/01/18 20:43) Urinalysis - C+S If Indicated (03/01/18 20:43) Chest, Single Ap (03/01/18 20:43) Femur (Ap & Lat/2vws) (03/01/18 20:43) Iv Access Insert/Monitor (03/01/18 20:43) Oximetry (03/01/18 20:43) Ice/Cold Pack (03/01/18 20:43) Ecg Monitoring (03/01/18 20:43) Pelvis, Ap Only (Routine) (03/01/18 20:43) Ketorolac Inj (Toradol Inj) (03/01/18 21:00) Westergren Sedimentation Rate (03/01/18 22:10) C-Reactive Protein (Crp) (03/01/18 22:10) Orphenadrine Inj (Norflex Inj) (03/01/18 23:15) Urine Culture (03/01/18 23:00) Ct Hip W/O Contrast (03/01/18 ) Admit Order (Ed Use Only) (03/02/18 00:45) Labs Laboratory Tests Test 03/01/18 20:50 03/01/18 23:00 White Blood Count 14.4 TH/MM3 Red Blood Count 4.10 MIL/MM3 Hemoglobin 10.2 GM/DL Hematocrit 32.1 % Mean Corpuscular Volume 78.4 FL Mean Corpuscular Hemoglobin 25.0 PG Mean Corpuscular Hemoglobin Concent 31.9 % Red Cell Distribution Width 18.2 % Platelet Count 354 TH/MM3 Mean Platelet Volume 8.5 FL Neutrophils (%) (Auto) 71.5 % Lymphocytes (%) (Auto) 19.0 % Monocytes (%) (Auto) 6.7 % Eosinophils (%) (Auto) 2.0 % Basophils (%) (Auto) 0.8 % Neutrophils # (Auto) 10.3 TH/MM3 Lymphocytes # (Auto) 2.7 TH/MM3 Monocytes # (Auto) 1.0 TH/MM3 Eosinophils # (Auto) 0.3 TH/MM3 Basophils # (Auto) 0.1 TH/MM3 CBC Comment DIFF FINAL Differential Comment Erythrocyte Sedimentation Rate 25 mm/hr Prothrombin Time 10.1 SEC Prothromb Time International Ratio 1.0 RATIO Activated Partial Thromboplast Time 22.6 SEC Blood Urea Nitrogen 27 MG/DL Creatinine 1.53 MG/DL Random Glucose 115 MG/DL Total Protein 7.8 GM/DL Albumin 4.3 GM/DL Calcium Level 9.5 MG/DL Alkaline Phosphatase 82 U/L Aspartate Amino Transf (AST/SGOT) 20 U/L Alanine Aminotransferase (ALT/SGPT) 14 U/L Total Bilirubin 0.4 MG/DL Sodium Level 139 MEQ/L Potassium Level 4.0 MEQ/L Chloride Level 106 MEQ/L Carbon Dioxide Level 20.6 MEQ/L Anion Gap 12 MEQ/L Estimat Glomerular Filtration Rate 33 ML/MIN C-Reactive Protein LESS THAN 0.29 MG/DL Urine Color YELLOW Urine Turbidity HAZY Urine pH 6.5 Urine Specific [place] 1.015 Urine Protein 30 mg/dL Urine Glucose (UA) NEG mg/dL Urine Ketones NEG mg/dL Urine Occult Blood TRACE Urine Nitrite POS Urine Bilirubin NEG Urine Urobilinogen LESS THAN 2.0 MG/DL Urine Leukocyte Esterase LARGE Urine RBC 4 /hpf Urine WBC /hpf Urine WBC Clumps FEW Urine Squamous Epithelial Cells 1 /hpf Urine Transitional Epithelial Cells <1 /hpf Urine Renal Epithelial Cells <1 /hpf Urine Bacteria OCC /hpf Urine Hyaline Casts 2 /lpf Microscopic Urinalysis Comment CATH-CULTURE IND MDM Supervised Visit with MAGDA: Yes Diagnosis Primary Impression: Hip pain Qualified Codes: M25.552 - Pain in left hip Additional Impressions: Intractable pain Urinary tract infection Condition: Stable Carina Waldron MD March 02, 2018 00:52
[2018-03-02] MEDS ORDERED: NITROFURANTOIN MONOHYD MACROCR 100 MG CAP PO ONE (01:00)
[2018-03-02] MEDS ORDERED: cloNIDine HCL 0.1 MG TAB PO PRN (01:00)
[2018-03-02] MEDS ORDERED: CYCLOBENZAPRINE HCL 10 MG TAB PO PRN ×2 (01:15→17:15)
--- NOTE | 2018-03-02 02:38 | HHI.HP ---
[facility] Admission Diagnosis intractable hip pain Diagnoses: Travel History International Travel<30 Days: No Contact w/Intl Traveler <30 Da: No Traveled to Known Affected Are: No History of Present Illness 77-year-old female with a past medical history significant for coronary artery disease, hypertension, hyperlipidemia, GERD, anxiety and hypothyroidism presents to the emergency department for evaluation of left hip/leg pain. The patient reports that her pain started after a fall in October. She states it has gotten acutely worse over the past 3-4 days. Yesterday, she was unable to ambulate or bear weight even while utilizing her walker. She was previously evaluated by orthopedic surgery in November who diagnosed her with arthritis. Her PCP gave her a hip injection which provided relief for approximately 1 day. The patient reports that the pain is in her left lateral hip and is a sharp shooting radiating pain down the anterior aspect of her entire left leg. Orthopedic surgery diagnosed her with arthritis. The patient cannot remember what imaging was done at that time. She also has a history of severe arthritis of the spine according to her daughter. The patient denies any chest pain or shortness of breath. No abdominal pain. No nausea/vomiting/diarrhea. No lateralizing signs/symptoms. Review of Systems Except as stated in HPI: all other systems reviewed are Neg Past Family Social History Past Medical History Coronary disease Hypertension Hyperlipidemia GERD Anxiety Hypothyroidism Past Surgical History CABG 3 Reported Medications Reported Meds & Active Scripts Active Augmentin (Amoxicillin-Clavulanate) 875-125 Mg Tab 1 Tab PO BID 7 Days Reported Clonidine (Clonidine HCl) 0.1 Mg Tab 0.1 Mg PO BID PRN Ezetimibe 10 Mg Tab 10 Mg PO HS Citalopram (Citalopram Hydrobromide) 20 Mg Tab 20 Mg PO HS Multi Vitamin Daily (Multiple Vitamin) 1 Tab Tab 1 Tab PO DAILY Acidophilus Capsule (L. Acidophilus/Pectin, Preble) 1 Each Capsule 1 Cap PO DAILY Vitamin D-3 (Cholecalciferol) 2,000 Unit Tab 1 Cap PO DAILY Amlodipine (Amlodipine Besylate) 5 Mg Tab 5 Mg PO DAILY Buspirone (Buspirone HCl) 5 Mg Tab 5 Mg PO BID Levothyroxine (Levothyroxine Sodium) 50 Mcg Tab 50 Mcg PO DAILY Isosorbide Mononitrate ER (Isosorbide Mononitrate) 30 Mg Patrick 30 Mg PO DAILY Losartan (Losartan Potassium) 50 Mg Tab 50 Mg PO BID Aspir-Low (Aspirin) 81 Mg Tabdr 81 Mg PO DAILY Vitamin B-12 (Cyanocobalamin) 1,000 Mcg Tab 1,000 Mcg PO DAILY Omeprazole 20 Mg Tab 20 Mg PO DAILY Allergies: Coded Allergies: atorvastatin (Unverified Allergy, Severe, Cramping, 03/01/18) pravastatin (Unverified Allergy, Severe, Cramping, 03/01/18) prednisone (Unverified Allergy, Severe, AL, 03/01/18) simvastatin (Unverified Allergy, Severe, Cramping, 03/01/18) codeine (Unverified Adverse Reaction, Severe, 03/01/18) dopamine (Unverified Adverse Reaction, Severe, 03/01/18) morphine (Unverified Adverse Reaction, Severe, 03/01/18) rivaroxaban (Unverified Adverse Reaction, Severe, 03/01/18) Family History Both parents with coronary artery disease Social History Rare alcohol. Denies tobacco, illicit drugs. Physical Exam Vital Signs Vital Signs Date Time Temp Pulse Resp B/P (MAP) Pulse Ox O2 Delivery O2 Flow Rate FiO2 03/02/18 01:25 03/02/18 00:26 84 20 138/72 (94) 98 Room Air 03/01/18 23:01 18 03/01/18 20:45 89 22 185/93 (123) 97 Room Air Physical Exam GENERAL: female lying in bed SKIN: No rashes, ecchymoses or lesions. Cool and dry. HEAD: Atraumatic. Normocephalic. No temporal or scalp tenderness. EYES: Pupils equal round and reactive. Extraocular motions intact. No scleral icterus. No injection or drainage. ENT: Nose without bleeding, purulent drainage or septal hematoma. Throat without erythema, tonsillar hypertrophy or exudate. Uvula midline. Airway patent. NECK: Trachea midline. No JVD or lymphadenopathy. Supple, nontender, no meningeal signs. CARDIOVASCULAR: Regular rate and rhythm without murmurs, gallops, or rubs. RESPIRATORY: Clear to auscultation. Breath sounds equal bilaterally. No wheezes , rales, or rhonchi. GASTROINTESTINAL: Abdomen soft, non-tender, nondistended. No hepato-splenomegaly , or palpable masses. No guarding. MUSCULOSKELETAL: Extremities without clubbing, cyanosis, or edema. Left lateral hip exquisitely tender to palpation at the area of the trochanteric bursa. Patient also tender to palpation along the anterior compartment of her left leg. She reports excruciating pain even at rest. NEUROLOGICAL: Awake and alert. Cranial nerves II through XII intact. Motor and sensory grossly within normal limits. Normal speech. Laboratory Laboratory Tests Test 03/01/18 20:50 03/01/18 23:00 White Blood Count 14.4 Red Blood Count 4.10 Hemoglobin 10.2 Hematocrit 32.1 Mean Corpuscular Volume 78.4 Mean Corpuscular Hemoglobin 25.0 Mean Corpuscular Hemoglobin Concent 31.9 Red Cell Distribution Width 18.2 Platelet Count 354 Mean Platelet Volume 8.5 Neutrophils (%) (Auto) 71.5 Lymphocytes (%) (Auto) 19.0 Monocytes (%) (Auto) 6.7 Eosinophils (%) (Auto) 2.0 Basophils (%) (Auto) 0.8 Neutrophils # (Auto) 10.3 Lymphocytes # (Auto) 2.7 Monocytes # (Auto) 1.0 Eosinophils # (Auto) 0.3 Basophils # (Auto) 0.1 CBC Comment DIFF FINAL Differential Comment Erythrocyte Sedimentation Rate 25 Prothrombin Time 10.1 Prothromb Time International Ratio 1.0 Activated Partial Thromboplast Time 22.6 Blood Urea Nitrogen 27 Creatinine 1.53 Random Glucose 115 Total Protein 7.8 Albumin 4.3 Calcium Level 9.5 Alkaline Phosphatase 82 Aspartate Amino Transf (AST/SGOT) 20 Alanine Aminotransferase (ALT/SGPT) 14 Total Bilirubin 0.4 Sodium Level 139 Potassium Level 4.0 Chloride Level 106 Carbon Dioxide Level 20.6 Anion Gap 12 Estimat Glomerular Filtration Rate 33 C-Reactive Protein LESS THAN 0.29 Urine Color YELLOW Urine Turbidity HAZY Urine pH 6.5 Urine Specific Morgan 1.015 Urine Protein 30 Urine Glucose (UA) NEG Urine Ketones NEG Urine Occult Blood TRACE Urine Nitrite POS Urine Bilirubin NEG Urine Urobilinogen LESS THAN 2.0 Urine Leukocyte Esterase LARGE Urine RBC 4 Urine WBC Urine WBC Clumps FEW Urine Squamous Epithelial Cells 1 Urine Transitional Epithelial Cells <1 Urine Renal Epithelial Cells <1 Urine Bacteria OCC Urine Hyaline Casts 2 Microscopic Urinalysis Comment CATH-CULTURE IND Date/Time Source Procedure Growth Status 03/01/18 23:00 Urine Catheterized Urine Urine Culture Pending Received Result Diagram: 03/01/18204903/01/182049 Caprini VTE Risk Assessment Caprini VTE Risk Assessment: Mod/High Risk (score >= 2) Caprini Risk Assessment Model Point Value = 1 Point Value = 2 Point Value = 3 Point Value = 5 Age 41-60 Minor surgery BMI > 25 kg/m2 Swollen legs Varicose veins or History of unexplained or recurrent spontaneous Oral contraceptives or hormone replacement Sepsis (< 1 month) Serious lung disease, including pneumonia (< 1 month) Abnormal pulmonary function Acute myocardial infarction Congestive heart failure (< 1 month) History of inflammatory bowel disease Medical patient at bed rest Age 61-74 Arthroscopic surgery Major open surgery (> 45 min) Laparoscopic surgery (> 45 min) Malignancy Confined to bed (> 72 hours) Immobilizing plaster cast Central venous access Age >= 75 History of VTE Family history of VTE Factor V Leiden Prothrombin [id number] Lupus anticoagulant Anticardiolipin antibodies Elevated serum homocysteine Heparin-induced thrombocytopenia Other congenital or acquired thrombophilia Stroke (< 1 month) Elective arthroplasty Hip, pelvis, or leg fracture Acute spinal cord injury (< 1 month) Prophylaxis Regimen Total Risk Factor Score Risk Level Prophylaxis Regimen 0-1 Low Early ambulation 2 Moderate Order ONE of the following: *Sequential Compression Device (SCD) *Heparin 5000 units SQ BID 3-4 Higher Order ONE of the following medications: *Heparin 5000 units SQ TID *Enoxaparin/Lovenox 40 mg SQ daily (WT < 150 kg, CrCl > 30 mL/min) *Enoxaparin/Lovenox 30 mg SQ daily (WT < 150 kg, CrCl > 10-29 mL/min) *Enoxaparin/Lovenox 30 mg SQ BID (WT < 150 kg, CrCl > 30 mL/min) AND/OR *Sequential Compression Device (SCD) 5 or more Highest Order ONE of the following medications: *Heparin 5000 units SQ TID (Preferred with Epidurals) *Enoxaparin/Lovenox 40 mg SQ daily (WT < 150 kg, CrCl > 30 mL/min) *Enoxaparin/Lovenox 30 mg SQ daily (WT < 150 kg, CrCl > 10-29 mL/min) *Enoxaparin/Lovenox 30 mg SQ BID (WT < 150 kg, CrCl > 30 mL/min) AND *Sequential Compression Device (SCD) Assessment and Plan Assessment and Plan Assessment/plan: 1. Left hip/leg pain Femur and pelvic x-ray negative Lower extremity CT showed no fracture Suspect pain may be radicular in nature; MRI L-spine pending Morphine, Flexeril for pain Physical therapy 2. Acute on chronic renal insufficiency BUN/creatinine 27/1.53, baseline 1.2 Monitor renal function 3. Hypertension/hyperlipidemia/coronary artery disease/GERD Continue home medications 4. Hypothyroidism Continue home levothyroxine 5. Anxiety Continue home BuSpar FEN Heart healthy diet Electrolytes: Monitor and replete as needed Heparin Deepa Barraza MD March 02, 2018 02:38
[2018-03-02] MEDS ORDERED: MORPHINE SULFATE 4 MG/ML INJ IV PUSH PRN (02:45)
[2018-03-02] MEDS: HEPARIN SODIUM - SQ 10,000 UNITS/ML VIAL SQ SCH ×2 (02:59→12:06)
[2018-03-02] MEDS: traMADol HCL 50 MG TAB PO PRN ×3 (04:05→17:59)
[2018-03-02] MEDS: ISOSORBIDE MONONITRATE 30 MG CR TAB (IMDUR) PO SCH (06:24)
[2018-03-02] MEDS: LEVOTHYROXINE SODIUM 50 MCG TAB PO SCH (06:24)
--- NOTE | 2018-03-02 09:13 | HHI.PR ---
Subjective Remarks Follow up for intractable left hip pain. The patient reports continued left hip pain, mildly improved compared to yesterday. She states the pain starts in the left sacral area, into the left buttocks and around to the left lateral hip and down the lateral thigh. She also has some pain in the left anterior groin. She reports the pain as an 8/10 today, improved from 12/10 yesterday. Described as constant ache but worsens to sharp stabbing pains upon ambulation. Denies any overlying rashes or ecchymosis. Denies any recent fall or injury. She states she has been diagnosed with arthritis of the left hip as well as bursitis. She states her PCP performed a steroid injection into her left hip 2-3 weeks ago. She states she has seen orthopedics in the past who recommended physical therapy. She does not want to see ortho again because she believes they didn't help her at all. Objective Vitals Vital Signs Date Time Temp Pulse Resp B/P (MAP) Pulse Ox O2 Delivery O2 Flow Rate FiO2 03/02/18 04:56 98.1 72 18 129/65 (86) 99 03/02/18 01:25 03/02/18 00:26 84 20 138/72 (94) 98 Room Air 03/01/18 23:01 18 03/01/18 20:45 89 22 185/93 (123) 97 Room Air Result Diagram: 03/01/18204903/01/182049 Imaging Last Impressions Pelvis X-Ray 03/01/182042 Signed Impressions: Service Date/Time: Thursday, March 01, 2018 21:01 - CONCLUSION: 1. No acute findings. Bones are osteopenic. Iliac stents present. Matthew Miller MD Femur X-Ray 03/01/182042 Signed Impressions: Service Date/Time: Thursday, March 01, 2018 21:02 - CONCLUSION: 1. No acute findings. Decreased bone mineralization. Matthew Miller MD Chest X-Ray 03/01/182042 Signed Impressions: Service Date/Time: Thursday, March 01, 2018 20:57 - CONCLUSION: 1. Parenchymal scarring and fibrosis similar to July 2017. Matthew Miller MD Lower Extremity CT 03/01/18 0000 Signed Impressions: Service Date/Time: Friday, March 02, 2018 00:07 - CONCLUSION: 1. No fracture. 2. 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 SKIN: Warm and dry. No rash. HEENT: Normocephalic. Atraumatic.Pupils equal and round. Mucous membranes pink and moist. CARDIOVASCULAR: Regular rate and rhythm. S1, S2 noted. No murmur appreciated. RESPIRATORY: No accessory muscle use. Clear to auscultation. Breath sounds equal bilaterally. GASTROINTESTINAL: Abdomen soft, non-tender, nondistended. Normoactive bowel sounds x4. MUSCULOSKELETAL: No obvious deformities. Extremities without clubbing, cyanosis , or edema. Left lateral hip tender to palpation. Left hip ROM intact however pain worse upon internal and external rotation. NEUROLOGICAL: Awake and alert. No obvious cranial nerve deficits. Motor grossly within normal limits. 5/5 muscle strength in bilateral upper and lower extremities. Normal speech. PSYCHIATRIC: Appropriate mood and affect; insight and judgment normal. Medications and IVs Current Medications Medications (Trade) Dose Ordered Sig/Jose Route Start Time Stop Time Status Last Admin (NS Flush) 2 ml UNSCH PRN IV FLUSH 03/02/18 00:45 (NS Flush) 2 ml BID IV FLUSH 03/02/18 09:00 03/02/18 10:18 (Tylenol) 650 mg Q4H PRN PO 03/02/18 00:45 (Zofran Inj) 4 mg Q6H PRN IVP 03/02/18 00:45 (Heparin Inj) 5,000 units Q12H SQ 03/02/18 00:45 03/02/18 02:59 (Narcan Inj) 0.4 mg UNSCH PRN IV PUSH 03/02/18 00:45 (Eva-Colace) 1 tab BID PO 03/02/18 09:00 03/02/18 10:18 (Milk Of Magnesia Liq) 30 ml Q12H PRN PO 03/02/18 00:45 (Senokot) 17.2 mg Q12H PRN PO 03/02/18 00:45 (Dulcolax Supp) 10 mg DAILY PRN RECTAL 03/02/18 00:45 (Lactulose Liq) 30 ml DAILY PRN PO 03/02/18 00:45 (Norvasc) 5 mg DAILY PO 03/02/18 09:00 03/02/18 10:19 (Ecotrin Ec) 81 mg DAILY PO 03/02/18 09:00 03/02/18 10:18 (Buspar) 5 mg BID PO 03/02/18 09:00 03/02/18 10:19 (CeleXA) 20 mg HS PO 03/02/18 21:00 (Catapres) 0.1 mg BID PRN PO 03/02/18 01:00 (Zetia) 10 mg HS PO 03/02/18 21:00 (Imdur) 30 mg DAILY@0700 PO 03/02/18 07:00 03/02/18 06:24 (Synthroid) 50 mcg DAILY@0700 PO 03/02/18 07:00 03/02/18 06:24 (Cozaar) 50 mg BID PO 03/02/18 09:00 03/02/18 10:19 (Protonix) 20 mg DAILY PO 03/02/18 09:00 03/02/18 10:18 (Flexeril) 10 mg Q8H PRN PO 03/02/18 01:15 03/02/18 02:59 (Ultram) 50 mg Q6H PRN PO 03/02/18 03:30 03/02/18 10:17 A/P Assessment and Plan 77-year-old female with a past medical history significant for arthritis, CAD, HTN, HLD, GERD, anxiety and hypothyroidism presents to the ED for evaluation of left hip/leg pain. Intractable Left hip/leg pain: acute on chronic, worsening [id number]. Failed outpatient management with steroid injection and pain meds. -Femur and pelvic x-ray negative -Lower extremity CT showed no fracture -Suspect pain may be radicular in nature; MRI L-spine pending -Continue tramadol prn pain, Flexeril prn spasms -Added lidoderm patch -Consult Physical therapy UTI: UA with +leuks/nitrites/bacteria -start on IV Rocephin 1g qd -Monitor urine culture Acute on chronic renal insufficiency -BUN/creatinine 27/1.53, baseline 1.2 -Monitor renal function Hypertension/hyperlipidemia/coronary artery disease/GERD -Continue home medications including aspirin, norvasc, losartan, ezetimibe, imdur -monitor BP, adjust antihypertensives Hypothyroidism -Continue home levothyroxine Anxiety -Continue home BuSpar DVT Prophylaxis: Heparin sq Discharge Planning Discharge pending further clinical improvement and PT eval. Hopefully discharge tomorrow. Saloni Wynne PA-C March 02, 2018 9:13 am
[2018-03-02] MEDS: ASPIRIN EC 81 MG TABEC PO SCH (10:18)
[2018-03-02] MEDS: PANTOPRAZOLE SOD 20 MG DELAYED RELEASE TAB PO SCH (10:18)
[2018-03-02] MEDS: DOCUSATE SODIUM 50 MG/SENNA 8.6 MG TAB PO SCH ×2 (10:18→20:43)
[2018-03-02] MEDS: SODIUM CHLORIDE 0.9% FLUSH 10 ML FLUSH IV FLUSH SCH ×2 (10:18→20:40)
[2018-03-02] MEDS: LOSARTAN 50 MG TAB PO SCH ×2 (10:19→20:43)
[2018-03-02] MEDS: busPIRone HCL 5 MG TAB PO SCH ×2 (10:19→20:42)
[2018-03-02] MEDS: amLODIPine BESYLATE 5 MG TAB PO SCH (10:19)
--- NOTE | 2018-03-02 10:36 | EKG ---
Date Performed: 03/01/2018 Time Performed: 20:50:45 PTAGE: 77 years EKG: Marked baseline artifact makes this technically substandard for interpretation. Unable to v isualize the atrial rhythm. Suspect this is Sinus rhythm with PACs, but cannot exclude atrial fibrillation. Cannot assess the ST segments due to artifact. Re peat tracing advised. ABNORMAL ECG PREVIOUS TRACING : 06/03/2016 11.36 Hard to discern any changes from the prior tracing. DOCTOR: Hema Robert Interpretating Date/Time 03/02/2018 10:34:42
[2018-03-02] MEDS ORDERED: LORazepam 2 MG/ML VIAL IV PUSH PRN (11:45)
[2018-03-02] MEDS: cefTRIAXone INJ 1,000 MG in SODIUM CHLORIDE 0.9% INJ 100 ML IV SCH (12:44)
[2018-03-02] MEDS ORDERED: PILL SPLITTER OTHER PRN (14:45)
[2018-03-02] MEDS: CYCLOBENZAPRINE HCL 10 MG TAB PO PRN (15:48)
--- NOTE | 2018-03-02 16:58 | RADRPT ---
EXAM DATE/TIME: 03/02/2018 15:09 [place] COMPARISON: No previous studies available for comparison. INDICATIONS : Back pain with no recent injury. MEDICAL HISTORY : Hypertension. SURGICAL HISTORY : CABG Tubal ligation. AAA repair ENCOUNTER: Subsequent ACUITY: 2 day PAIN SCORE: 3/10 LOCATION: lower back TECHNIQUE: Multiplanar multisequence MRI of the lumbar spine was performed without contrast. FINDINGS: The most caudal appearing lumbar vertebra is numbered as L5. VERTEBRAE: There are moderate degenerative changes involving the lumbar spine. There is mild retrolisthesis of L 3 over L4. There is mild grade 1 anterior spondylolisthesis of L4 over L5. No compression fracture in juries are demonstrated. There is some curvature of the lumbar spine to the right. There is disc dehy dration at all levels. CONUS: Normal level and configuration. T12-L1: The thecal sac has a normal diameter. No evidence of disc bulge or protrusion. The neural foramina are patent bilaterally. L1-L2: The thecal sac has a normal diameter. No evidence of disc bulge or protrusion. The neural foramina are patent bilaterally. L2-L3: Broad-based bulging and right lateral bulging with narrowing of the right neural foramina. The left n eural foramina is patent. There is mild facet arthritis. L3-L4: Moderate broad-based bulging with narrowing of the neural foramina bilaterally. There is bilateral fa cet arthritis. Mild spinal canal stenosis. L4-L5: There is moderate diffuse broad-based bulging as well as left paracentral disc protrusion and left la teral disc protrusion with narrowing of the left neural foramina. There is narrowing of the right rabia ral foramina. There is bilateral facet arthritis and hypertrophy ligamentum flavum causing moderate t o severe focal spinal canal stenosis.. L5-S1: Mild diffuse broad-based bulge and mild narrowing of the neural foramina. Bilateral facet arthritis. No significant spinal canal stenosis. CONCLUSION: 1. Focal moderate to severe spinal canal stenosis at L4-5. 2. Mild spinal canal stenosis at L3-4. 3. Mild retrolisthesis of L3 over L4. 4. Mild grade 1 anterior spondylolisthesis of L4 over L5 5. Primary bony degenerative changes, there is degeneration and some disc space narrowing throughout the lumbar spine. 6. Bilateral facet arthritis at multiple levels. Jose Manuel De Santiago MD on March 02, 2018 at 16:52 Board Certified Radiologist. This report was verified electronically.
[2018-03-02] MEDS ORDERED: CITALOPRAM HYDROBROMIDE 20 MG TAB PO SCH (21:00)
[2018-03-02] MEDS ORDERED: EZETIMIBE 10 MG TAB PO SCH (21:00)
[2018-03-03] MEDS: HEPARIN SODIUM - SQ 10,000 UNITS/ML VIAL SQ SCH ×2 (02:07→12:58)
[2018-03-03 04:16] VITALS: BP 125/59; PULSE 72; RESP 17; TEMP 98.5; O2SAT 99
[2018-03-03] MEDS: LEVOTHYROXINE SODIUM 50 MCG TAB PO SCH (06:25)
[2018-03-03] MEDS: ISOSORBIDE MONONITRATE 30 MG CR TAB (IMDUR) PO SCH (06:25)
[2018-03-03] MEDS: traMADol HCL 50 MG TAB PO PRN ×2 (06:25→13:09)
[2018-03-03 08:25] VITALS: BP 128/59; PULSE 72; RESP 16; TEMP 98.3; O2SAT 96
[2018-03-03] MEDS ORDERED: LIDOCAINE HCL 5% PATCH T-DERMAL SCH (09:00)
--- NOTE | 2018-03-03 09:54 | HHI.PR ---
Subjective Remarks Follow up for intractable low back/left hip pain. The patient reports feeling slightly better today. Still has some pain at the left lower buttocks and lateral hip, although improved compared to yesterday. She has not yet attempted ambulation today. Discussed MRI findings, patient leaning towards not agreeing to any surgery if indicated, but would like neurosurgery opinion and recommendations. The patient also does not want to go to rehab but would agree to [facility]. Objective Vitals Vital Signs Date Time Temp Pulse Resp B/P (MAP) Pulse Ox O2 Delivery O2 Flow Rate FiO2 03/03/18 08:25 98.3 72 16 128/59 (82) 96 03/03/18 04:16 98.5 72 17 125/59 (81) 99 03/02/18 23:54 98.5 70 17 112/55 (74) 96 03/02/18 21:18 98.2 80 17 110/57 (74) 94 03/02/18 16:21 98.2 76 16 134/63 (86) 98 03/02/18 12:28 98.0 73 16 137/63 (87) 96 Result Diagram: 03/01/18204903/01/182049 Imaging Last Impressions Lumbar Spine MRI 03/02/18 0000 Signed Impressions: Service Date/Time: Friday, March 02, 2018 15:09 - CONCLUSION: 1. Focal moderate to severe spinal canal stenosis at L4-5. 2. Mild spinal canal stenosis at L3-4. 3. Mild retrolisthesis of L3 over L4. 4. Mild grade 1 anterior spondylolisthesis of L4 over L5 5. Primary bony degenerative changes, there is degeneration and some disc space narrowing throughout the lumbar spine. 6. Bilateral facet arthritis at multiple levels. Jose Manuel De Santiago MD Pelvis X-Ray 03/01/182042 Signed Impressions: Service Date/Time: Thursday, March 01, 2018 21:01 - CONCLUSION: 1. No acute findings. Bones are osteopenic. Iliac stents present. Matthew Miller MD Femur X-Ray 03/01/182042 Signed Impressions: Service Date/Time: Thursday, March 01, 2018 21:02 - CONCLUSION: 1. No acute findings. Decreased bone mineralization. Matthew Miller MD Chest X-Ray 03/01/182042 Signed Impressions: Service Date/Time: Thursday, March 01, 2018 20:57 - CONCLUSION: 1. Parenchymal scarring and fibrosis similar to July 2017. Matthew Miller MD Lower Extremity CT 03/01/18 0000 Signed Impressions: Service Date/Time: Friday, March 02, 2018 00:07 - CONCLUSION: 1. No fracture. 2. 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 SKIN: Warm and dry. No rash. HEENT: Normocephalic. Atraumatic.Pupils equal and round. Mucous membranes pink and moist. CARDIOVASCULAR: Regular rate and rhythm. No murmur appreciated. RESPIRATORY: No accessory muscle use. Clear to auscultation. Breath sounds equal bilaterally. GASTROINTESTINAL: Abdomen soft, non-tender, nondistended. Normoactive bowel sounds x4. MUSCULOSKELETAL: No obvious deformities. Extremities without clubbing, cyanosis , or edema. Left lateral hip nontender to palpation today with improved left hip active and passive ROM compared to yesterday. NEUROLOGICAL: Awake and alert. No obvious cranial nerve deficits. Motor grossly within normal limits. 5/5 muscle strength in bilateral upper and lower extremities. Normal speech. PSYCHIATRIC: Appropriate mood and affect; insight and judgment normal. Medications and IVs Current Medications Medications (Trade) Dose Ordered Sig/Jose Route Start Time Stop Time Status Last Admin (NS Flush) 2 ml UNSCH PRN IV FLUSH 03/02/18 00:45 (NS Flush) 2 ml BID IV FLUSH 03/02/18 09:00 03/03/18 09:58 (Tylenol) 650 mg Q4H PRN PO 03/02/18 00:45 (Zofran Inj) 4 mg Q6H PRN IVP 03/02/18 00:45 (Heparin Inj) 5,000 units Q12H SQ 03/02/18 00:45 03/03/18 02:07 (Narcan Inj) 0.4 mg UNSCH PRN IV PUSH 03/02/18 00:45 (Eva-Colace) 1 tab BID PO 03/02/18 09:00 03/03/18 09:59 (Milk Of Magnesia Liq) 30 ml Q12H PRN PO 03/02/18 00:45 (Senokot) 17.2 mg Q12H PRN PO 03/02/18 00:45 (Dulcolax Supp) 10 mg DAILY PRN RECTAL 03/02/18 00:45 (Lactulose Liq) 30 ml DAILY PRN PO 03/02/18 00:45 (Norvasc) 5 mg DAILY PO 03/02/18 09:00 03/03/18 10:00 (Ecotrin Ec) 81 mg DAILY PO 03/02/18 09:00 03/03/18 10:00 (Buspar) 5 mg BID PO 03/02/18 09:00 03/03/18 09:58 (CeleXA) 20 mg HS PO 03/02/18 21:00 03/02/18 20:42 (Catapres) 0.1 mg BID PRN PO 03/02/18 01:00 (Zetia) 10 mg HS PO 03/02/18 21:00 03/02/18 20:43 (Imdur) 30 mg DAILY@0700 PO 03/02/18 07:00 03/03/18 06:25 (Synthroid) 50 mcg DAILY@0700 PO 03/02/18 07:00 03/03/18 06:25 (Cozaar) 50 mg BID PO 03/02/18 09:00 03/03/18 09:59 (Protonix) 20 mg DAILY PO 03/02/18 09:00 03/03/18 09:59 (Ultram) 50 mg Q6H PRN PO 03/02/18 03:30 03/03/18 06:25 Ceftriaxone Sodium 1000 mg/ Sodium Chloride 100 ml @ 200 mls/hr Q24H IV 03/02/18 12:00 03/02/18 12:44 (Lidoderm 5% Patch.12 Hr) 1 patch DAILY T-DERMAL 03/03/18 09:00 03/03/18 09:58 (Ativan Inj) 0.5 mg ONCE PRN IV PUSH 03/02/18 11:45 03/06/18 11:44 03/02/18 12:10 (Flexeril) 5 mg Q8H PRN PO 03/02/18 14:45 03/03/18 10:04 (Pill Splitter) 1 ea UNSCH PRN OTHER 03/02/18 14:45 03/03/18 10:05 A/P Assessment and Plan 77-year-old female with a past medical history significant for arthritis, CAD, HTN, HLD, GERD, anxiety and hypothyroidism presents to the ED for evaluation of left hip/leg pain. Intractable Left hip/leg pain: acute on chronic, worsening [id number]. Failed outpatient management with steroid injection and pain meds. Suspect pain may be radicular in nature, eval for lumbar stenosis. -Femur and pelvic x-ray negative -Lower extremity CT showed no fracture -MRI L-spine shows focal moderate to severe spinal canal stenosis at L4-5; mild stenosis L3-4; mild retrolisthesis of L3-4; mild grade 1 anterior spondylolisthesis of L4-5; bilateral facet arthritis at multiple levels -Continue tramadol prn pain, Flexeril prn spasms -Added lidoderm patch -Consult Physical therapy, initial eval recommends rehab vs [facility], patient improving, can likely go home with [facility] -Consult neurosurgery for MRI findings UTI: UA with +leuks/nitrites/bacteria -start on IV Rocephin 1g qd -Urine culture with klebsiella pneumoniae -will transition to po cefuroxime at discharge Acute on chronic renal insufficiency -BUN/creatinine 27/1.53, baseline 1.2 -Monitor renal function, repeat BMP shows improvement with Cr 1.11 Hypertension/hyperlipidemia/coronary artery disease/GERD -Continue home medications including aspirin, norvasc, losartan, ezetimibe, imdur -monitor BP, adjust antihypertensives Hypothyroidism -Continue home levothyroxine Anxiety -Continue home BuSpar DVT Prophylaxis: Heparin sq Discharge Planning Discharge pending repeat PT eval. Likely discharge with [facility] if ok with PT. Discharge patient to home with [facility] Condition on discharge: Stable Heart Healthy Diet as tolerated Ad Nuzhat activity Rx written: tramadol, flexeril, cefuroxime Follow-up with primary care physician and neurosurgery Saloni Cardoso PA-C March 03, 2018 9:54 am
[2018-03-03] MEDS: SODIUM CHLORIDE 0.9% FLUSH 10 ML FLUSH IV FLUSH SCH (09:58)
[2018-03-03] MEDS: busPIRone HCL 5 MG TAB PO SCH (09:58)
[2018-03-03] MEDS: LOSARTAN 50 MG TAB PO SCH (09:59)
[2018-03-03] MEDS: DOCUSATE SODIUM 50 MG/SENNA 8.6 MG TAB PO SCH (09:59)
[2018-03-03] MEDS: PANTOPRAZOLE SOD 20 MG DELAYED RELEASE TAB PO SCH (09:59)
[2018-03-03] MEDS: ASPIRIN EC 81 MG TABEC PO SCH (10:00)
[2018-03-03] MEDS: amLODIPine BESYLATE 5 MG TAB PO SCH (10:00)
[2018-03-03] MEDS: CYCLOBENZAPRINE HCL 10 MG TAB PO PRN (10:04)
[2018-03-03 10:07] LABS: AUTOMATED NEUTROPHIL # 5.8 TH/MM3 (1.8-7.7); BASOPHIL # 0.1 TH/MM3 (0-0.2); BASOPHIL % 0.9 % (0.0-2.0); EOSINOPHIL # 0.4 TH/MM3 (0-0.4); EOSINOPHIL % 5.7 % (0.0-4.0); HEMATOCRIT 28.4 % (35.0-46.0); HEMOGLOBIN 9.7 GM/DL (11.6-15.3); LYMPH % 11.9 % (9.0-44.0); LYMPHOCYTE # 0.9 TH/MM3 (1.0-4.8); MEAN CELL VOLUME 77.5 FL (80.0-100.0); MEAN CORPUSCULAR HEMOGLOBIN 26.5 PG (27.0-34.0); MEAN CORPUSCULAR HGB CONC 34.2 % (32.0-36.0); MEAN PLATELET VOLUME 8.9 FL (7.0-11.0); MONO % 6.4 % (0.0-8.0); MONOCYTE # 0.5 TH/MM3 (0-0.9); NEUT % 75.1 % (16.0-70.0); PLATELET COUNT 273 TH/MM3 (150-450); RED BLOOD COUNT 3.66 MIL/MM3 (4.00-5.30); RED CELL DISTRIBUTION WIDTH 18.6 % (11.6-17.2); WHITE BLOOD COUNT 7.7 TH/MM3 (4.0-11.0)
[2018-03-03 10:17] LABS: BICARBONATE 25.6 MEQ/L (21.0-32.0); CREATININE 1.11 MG/DL (0.50-1.00)
[2018-03-03 12:42] VITALS: BP 130/59; PULSE 74; RESP 16; TEMP 98.2; O2SAT 95
--- NOTE | 2018-03-03 12:45 | PD.CONS ---
[facility] Service neurosurgery Consult Requested By Lisa ARMAS Reason for Consult Lumbar stenosis and spondylolisthesis Primary Care Physician Unknown History of Present Illness This is a 77-year-old female with a past medical history significant for coronary artery disease, hypertension, hyperlipidemia, GERD, anxiety and hypothyroidism presents to the emergency department for evaluation of left hip/ leg pain. The patient reports that her pain started after a fall in October. She states it has gotten acutely worse over the past 3-4 days. Yesterday, she was unable to ambulate or bear weight even while utilizing her walker. She was previously evaluated by orthopedic surgery in November who diagnosed her with arthritis. Her PCP gave her a hip injection which provided relief for approximately 1 day. The patient reports that the pain is in her left lateral hip and is a sharp shooting radiating pain down the anterior aspect of her entire left leg. An Orthopedic surgeon diagnosed her with arthritis. The patient cannot remember what imaging was done at that time. She denies any chest pain or shortness of breath. No abdominal pain. No nausea/vomiting/diarrhea. No lateralizing signs/symptoms. MRI lumbar spine was done. It showed spondylolisthesis. Neurosurgical consultation was requested Review of Systems Constitutional: DENIES: Diaphoretic episodes, Fatigue, Fever, Weight gain, Weight loss, Chills, Dizziness, Change in appetite, Night Sweats Endocrine: DENIES: Abnorml menstrual pattern, Heat/cold intolerance, Polydipsia , Polyuria, Polyphagia Eyes: DENIES: Blurred vision, Diplopia, Eye inflammation, Eye pain, Vision loss , Photosensitivity, Double Vision Ears, nose, mouth, throat: DENIES: Tinnitus, Hearing loss, Vertigo, Nasal discharge, Oral lesions, Throat pain, Hoarseness, Ear Pain, Running Nose, Epistaxis, Sinus Pain, Toothache, Odynophagia Respiratory: DENIES: Apneas, Cough, Snoring, Wheezing, Hemoptysis, Sputum production, Shortness of breath Cardiovascular: DENIES: Chest pain, Palpitations, Syncope, Dyspnea on Exertion , PND, Lower Extremity Edema, Orthopnea, Claudication Gastrointestinal: DENIES: Abdominal pain, Black stools, Bloody stools, Constipation, Diarrhea, Nausea, Vomiting, Difficulty Swallowing, Anorexia Genitourinary: DENIES: Abnormal vaginal bleeding, Dysmenorrhea, Dyspareunia, Sexual dysfunction, Urinary frequency, Urinary incontinence, Urgency, Hematuria , Dysuria, Nocturia, Vaginal discharge Musculoskeletal: COMPLAINS OF: Joint pain, Muscle aches, Back pain, DENIES: Stiffness, Joint Swelling, Neck pain Integumentary: DENIES: Abnormal pigmentation, Pruritus, Rash, Nail changes, Breast masses, Breast skin changes, Nipple discharge Hematologic/lymphatic: DENIES: Bruising, Lymphadenopathy Immunologic/allergic: DENIES: Eczema, Urticaria Neurologic: COMPLAINS OF: Abnormal gait, DENIES: Headache, Localized weakness, Paresthesias, Seizures, Speech Problems, Tremor, Poor Balance Psychiatric: DENIES: Anxiety, Confusion, Mood changes, Depression, Hallucinations, Agitation, Suicidal Ideation, Homicidal Ideation, Delusions Past Family Social History Allergies: Coded Allergies: atorvastatin (Unverified Allergy, Severe, Cramping, 03/01/18) pravastatin (Unverified Allergy, Severe, Cramping, 03/01/18) prednisone (Unverified Allergy, Severe, [place], 03/01/18) simvastatin (Unverified Allergy, Severe, Cramping, 03/01/18) codeine (Unverified Adverse Reaction, Severe, 03/01/18) dopamine (Unverified Adverse Reaction, Severe, 03/01/18) morphine (Unverified Adverse Reaction, Severe, 03/01/18) rivaroxaban (Unverified Adverse Reaction, Severe, 03/01/18) Past Medical History Coronary disease Hypertension Hyperlipidemia GERD Anxiety Hypothyroidism Past Surgical History CABG 3 Reported Medications Clonidine (Clonidine HCl) 0.1 Mg Tab 0.1 Mg PO BID PRN Ezetimibe 10 Mg Tab 10 Mg PO HS Citalopram (Citalopram Hydrobromide) 20 Mg Tab 20 Mg PO HS Multi Vitamin Daily (Multiple Vitamin) 1 Tab Tab 1 Tab PO DAILY Acidophilus Capsule (L. Acidophilus/Pectin, [place]) 1 Each Capsule 1 Cap PO DAILY Vitamin D-3 (Cholecalciferol) 2,000 Unit Tab 1 Cap PO DAILY Amlodipine (Amlodipine Besylate) 5 Mg Tab 5 Mg PO DAILY Buspirone (Buspirone HCl) 5 Mg Tab 5 Mg PO BID Levothyroxine (Levothyroxine Sodium) 50 Mcg Tab 50 Mcg PO DAILY Isosorbide Mononitrate ER (Isosorbide Mononitrate) 30 Mg Patrick 30 Mg PO DAILY Losartan (Losartan Potassium) 50 Mg Tab 50 Mg PO BID Aspir-Low (Aspirin) 81 Mg Tabdr 81 Mg PO DAILY Vitamin B-12 (Cyanocobalamin) 1,000 Mcg Tab 1,000 Mcg PO DAILY Omeprazole 20 Mg Tab 20 Mg PO DAILY Active Ordered Medications Current Medications Ketorolac Tromethamine (Toradol Inj) 30 mg ONCE ONCE IM Last administered on at 21:25; Start 03/01/18 at 21:00; Stop 03/01/18 at 21:01; Status DC Orphenadrine Citrate (Norflex Inj) 60 mg ONCE ONCE IM ; Start 03/01/18 at 23:15 ; Stop 03/01/18 at 23:16; Status DC Sodium Chloride (NS Flush) 2 ml UNSCH PRN IV FLUSH FLUSH AFTER USING IV ACCESS ; Start 03/02/18 at 00:45 Sodium Chloride (NS Flush) 2 ml BID IV FLUSH Last administered on 03/03/18at 09: 58; Start 03/02/18 at 09:00 Acetaminophen (Tylenol) 650 mg Q4H PRN PO TEMP > 100.4; Start 03/02/18 at 00:45 Ondansetron HCl (Zofran Inj) 4 mg Q6H PRN IVP NAUSEA OR VOMITING; Start at 00:45 Heparin Sodium (Porcine) (Heparin Inj) 5,000 units Q12H SQ Last administered on 03/03/18at 02:07; Start 03/02/18 at 00:45 Naloxone HCl (Narcan Inj) 0.4 mg UNSCH PRN IV PUSH SEE LABEL COMMENTS; Start at 00:45 Senna/Docusate Sodium (Eva-Colace) 1 tab BID PO Last administered on 03/03/18at 09:59; Start 03/02/18 at 09:00 Magnesium Hydroxide (Milk Of Magnesia Liq) 30 ml Q12H PRN PO Mild constipation ; Start 03/02/18 at 00:45 Sennosides (Senokot) 17.2 mg Q12H PRN PO Moderate constipation; Start 03/02/18 at 00:45 Bisacodyl (Dulcolax Supp) 10 mg DAILY PRN RECTAL SEVERE CONSITIPATION/ IF NPO ; Start 03/02/18 at 00:45 Lactulose (Lactulose Liq) 30 ml DAILY PRN PO SEVERE CONSITIPATION/ IF PO; Start 03/02/18 at 00:45 Amlodipine Besylate (Norvasc) 5 mg DAILY PO Last administered on 03/03/18 10:00 ; Start 03/02/18 at 09:00 Aspirin (Ecotrin Ec) 81 mg DAILY PO Last administered on 03/03/18at 10:00; Start 03/02/18 at 09:00 Buspirone HCl (Buspar) 5 mg BID PO Last administered on 03/03/18at 09:58; Start 03/02/18 at 09:00 Citalopram Hydrobromide (CeleXA) 20 mg HS PO Last administered on 03/02/18at 20: 42; Start 03/02/18 at 21:00 Clonidine (Catapres) 0.1 mg BID PRN PO Blood Pressure Management; Start at 01:00 EZETIMIBE (Zetia) 10 mg HS PO Last administered on 03/02/18at 20:43; Start at 21:00 Isosorbide Mononitrate (Imdur) 30 mg DAILY@0700 PO Last administered on 06:25; Start 03/02/18 at 07:00 Levothyroxine Sodium (Synthroid) 50 mcg DAILY@0700 PO Last administered on at 06:25; Start 03/02/18 at 07:00 Losartan Potassium (Cozaar) 50 mg BID PO Last administered on 03/03/18at 09:59; Start 03/02/18 at 09:00 Pantoprazole Sodium (Protonix) 20 mg DAILY PO Last administered on 03/03/18at 09: 59; Start 03/02/18 at 09:00 Nitrofurantoin Macrocrystals (Macrobid) 100 mg ONCE ONCE PO Last administered on 03/02/18at 03:00; Start 03/02/18 at 01:00; Stop 03/02/18 at 01:01; Status DC Cyclobenzaprine HCl (Flexeril) 10 mg Q8H PRN PO muscle pain/spasm Last administered on 03/02/18 02:59; Start 03/02/18 at 01:15; Stop 03/02/18 at 11:21; Status DC Morphine Sulfate (Morphine Inj) 2 mg Q3H PRN IV PUSH pain 6-10; Start 03/02/18 at 02:45; Stop 03/02/18 at 03:23; Status DC Tramadol HCl (Ultram) 50 mg Q6H PRN PO pain > 4 Last administered on 03/03/18at 06:25; Start 03/02/18 at 03:30 Ceftriaxone Sodium 1000 mg/ Sodium Chloride 100 ml @ 200 mls/hr Q24H IV Last administered on 03/02/18at 12:44; Start 03/02/18 at 12:00 Cyclobenzaprine HCl (Flexeril) 5 mg Q8H PRN PO muscle pain/spasm; Start at 17:15; Stop 03/02/18 at 17:15; Status DC Lidocaine HCl (Lidoderm 5% Patch.12 Hr) 1 patch DAILY T-DERMAL Last administered on 03/03/18at 09:58; Start 03/03/18 at 09:00 Lorazepam (Ativan Inj) 0.5 mg ONCE PRN IV PUSH claustrophobia Last administered on 03/02/18 12:10; Start 03/02/18 at 11:45; Stop 03/06/18 at 11:44 Cyclobenzaprine HCl (Flexeril) 5 mg Q8H PRN PO muscle pain/spasm Last administered on 03/03/18 10:04; Start 03/02/18 at 14:45 Miscellaneous (Pill Splitter) 1 ea UNSCH PRN OTHER SEE LABEL COMMENTS Last administered on 03/03/18 10:05; Start 03/02/18 at 14:45 Family History Both parents with coronary artery disease Social History Rarely drinks alcohol. Denies tobacco, illicit drugs. Physical Exam Vital Signs Vital Signs Date Time Temp Pulse Resp B/P (MAP) Pulse Ox O2 Delivery O2 Flow Rate FiO2 03/03/18 12:42 98.2 74 16 130/59 (82) 95 03/03/18 08:25 98.3 72 16 128/59 (82) 96 03/03/18 04:16 98.5 72 17 125/59 (81) 99 03/02/18 23:54 98.5 70 17 112/55 (74) 96 03/02/18 21:18 98.2 80 17 110/57 (74) 94 03/02/18 16:21 98.2 76 16 134/63 (86) 98 Physical Exam The patient is alert, awake and oriented to time, place and person. Speech is fluent. Cranial nerve examination: pupils to be equal, round and reactive to light. Extra-ocular movements are intact. Facial motor and sensory function are normal and symmetrical. Gross hearing appears intact. Sternocleidomastoid and trapezius muscles are symmetrical. Other cranial nerves are intact. Neck is soft and supple with a good range of motion without pain. Muscle strength is normal in all muscle groups of both upper and lower extremities. Sensory examination is intact to light touch and pin prick in both the upper and lower extremities. Deep tendon reflexes are symmetrical in both upper and lower extremities. There is a bilateral plantar flexion response. Cerebellar examination is unremarkable, without deficits. Lungs are clear Heart regular rhythm and rate Abdomen soft nontender Skin warm and dry Laboratory Laboratory Tests Test 03/03/18 09:08 White Blood Count 7.7 Red Blood Count 3.66 Hemoglobin 9.7 Hematocrit 28.4 Mean Corpuscular Volume 77.5 Mean Corpuscular Hemoglobin 26.5 Mean Corpuscular Hemoglobin Concent 34.2 Red Cell Distribution Width 18.6 Platelet Count 273 Mean Platelet Volume 8.9 Neutrophils (%) (Auto) 75.1 Lymphocytes (%) (Auto) 11.9 Monocytes (%) (Auto) 6.4 Eosinophils (%) (Auto) 5.7 Basophils (%) (Auto) 0.9 Neutrophils # (Auto) 5.8 Lymphocytes # (Auto) 0.9 Monocytes # (Auto) 0.5 Eosinophils # (Auto) 0.4 Basophils # (Auto) 0.1 CBC Comment DIFF FINAL Differential Comment Blood Urea Nitrogen 24 Creatinine 1.11 Random Glucose 88 Calcium Level 9.0 Sodium Level 140 Potassium Level 4.3 Chloride Level 108 Carbon Dioxide Level 25.6 Anion Gap 6 Estimat Glomerular Filtration Rate 47 Date/Time Source Procedure Growth Status 03/01/18 23:00 Urine Catheterized Urine Urine Culture - Final Klebsiella Pneumoniae Complete Result Diagram: 03/03/18 0908 03/03/18 0908 Attending Statement I reviewed her radiological studies including Lumbar Spine MRI 03/02/18 0000 Signed Impressions: Service Date/Time: Friday, March 02, 2018 15:09 - CONCLUSION: 1. Focal moderate to severe spinal canal stenosis at L4-5. 2. Mild spinal canal stenosis at L3-4. 3. Mild retrolisthesis of L3 over L4. 4. Mild grade 1 anterior spondylolisthesis of L4 over L5 5. Primary bony degenerative changes, there is degeneration and some disc space narrowing throughout the lumbar spine. 6. Bilateral facet arthritis at multiple levels. Jose Manuel De Santiago MD Pelvis X-Ray 03/01/182042 Signed Impressions: Service Date/Time: Thursday, March 01, 2018 21:01 - CONCLUSION: 1. No acute findings. Bones are osteopenic. Iliac stents present. Matthew Miller MD Femur X-Ray 03/01/182042 Signed Impressions: Service Date/Time: Thursday, March 01, 2018 21:02 - CONCLUSION: 1. No acute findings. Decreased bone mineralization. Matthew Miller MD Chest X-Ray 03/01/182042 Signed Impressions: Service Date/Time: Thursday, March 01, 2018 20:57 - CONCLUSION: 1. Parenchymal scarring and fibrosis similar to July 2017. Matthew Miller MD Review with her her clinical and radiological findings. Using the patients radiological studies and an anatomical model of the spine, I have discussed the alternative methods of treatment including, conservative management, pain management by an interventional paint grinder, or a surgical decompression, which should always be a last resort. I recommend she continues with non-operative treatment for now. She could become a surgical candidate if she fails nonsurgical treatment Morphine, Flexeril for pain Physical therapy Acute on chronic renal insufficiency BUN/creatinine 27/1.53, baseline 1.2 Monitor renal function Hypertension/hyperlipidemia/coronary artery disease/GERD Continue home medications Hypothyroidism Continue home levothyroxine Anxiety Continue home BuSpar Endocrine. Monitor serial Acu checks and SSI as needed in detail ID monitor for signs of infection Protonix for stress ulcer prophylaxis Continue Randal hose and SCD's for DVT prophylaxis Caprini VTE Risk Assessment Caprini VTE Risk Assessment: Mod/High Risk (score >= 2) Caprini Risk Assessment Model Point Value = 1 Point Value = 2 Point Value = 3 Point Value = 5 Age 41-60 Minor surgery BMI > 25 kg/m2 Swollen legs Varicose veins or History of unexplained or recurrent spontaneous Oral contraceptives or hormone replacement Sepsis (< 1 month) Serious lung disease, including pneumonia (< 1 month) Abnormal pulmonary function Acute myocardial infarction Congestive heart failure (< 1 month) History of inflammatory bowel disease Medical patient at bed rest Age 61-74 Arthroscopic surgery Major open surgery (> 45 min) Laparoscopic surgery (> 45 min) Malignancy Confined to bed (> 72 hours) Immobilizing plaster cast Central venous access Age >= 75 History of VTE Family history of VTE Factor V Leiden Prothrombin [id number] Lupus anticoagulant Anticardiolipin antibodies Elevated serum homocysteine Heparin-induced thrombocytopenia Other congenital or acquired thrombophilia Stroke (< 1 month) Elective arthroplasty Hip, pelvis, or leg fracture Acute spinal cord injury (< 1 month) Prophylaxis Regimen Total Risk Factor Score Risk Level Prophylaxis Regimen 0-1 Low Early ambulation 2 Moderate Order ONE of the following: *Sequential Compression Device (SCD) *Heparin 5000 units SQ BID 3-4 Higher Order ONE of the following medications: *Heparin 5000 units SQ TID *Enoxaparin/Lovenox 40 mg SQ daily (WT < 150 kg, CrCl > 30 mL/min) *Enoxaparin/Lovenox 30 mg SQ daily (WT < 150 kg, CrCl > 10-29 mL/min) *Enoxaparin/Lovenox 30 mg SQ BID (WT < 150 kg, CrCl > 30 mL/min) AND/OR *Sequential Compression Device (SCD) 5 or more Highest Order ONE of the following medications: *Heparin 5000 units SQ TID (Preferred with Epidurals) *Enoxaparin/Lovenox 40 mg SQ daily (WT < 150 kg, CrCl > 30 mL/min) *Enoxaparin/Lovenox 30 mg SQ daily (WT < 150 kg, CrCl > 10-29 mL/min) *Enoxaparin/Lovenox 30 mg SQ BID (WT < 150 kg, CrCl > 30 mL/min) AND *Sequential Compression Device (SCD) Akira Mejia MD March 03, 2018 12:44
[2018-03-03] MEDS ORDERED: CEFU1TAB20 PO (12:52)
[2018-03-03] MEDS ORDERED: TRAM50 PO (12:52)
[2018-03-03] MEDS ORDERED: CYCL10TA PO (12:52)
--- NOTE | 2018-03-03 12:55 | HHI.FF ---
Face to Face Verification Diagnosis: (1) Lumbar spinal stenosis (2) UTI (urinary tract infection) (3) Hip pain (4) HTN (hypertension) (5) HLD (hyperlipidemia) Physical Therapy Order: Evaluate and Treat, Improve ambulation, Strength and gait training Home Health Nursing Order: Medical education Signs/symptoms of disease process Nursing assessment with vital signs I have seen patient Bijal Kelly on 03/03/18. My clinical findings support the need for the requested home health care services because: Ltd mobility - disease progression Deconditioned w/ increased weakness Limited ability to care for self High risk of falls I certify that my clinical findings support that this patient is homebound because: Unsteady gait/balance Unsafe to leave home unassisted Unable to use public transportation Saloni Wynne PA-C March 03, 2018 12:55
--- NOTE | 2018-03-03 12:56 | HHI.DCPOC ---
Discharge Care Plan Diagnosis: (1) Lumbar spinal stenosis (2) UTI (urinary tract infection) (3) Hip pain (4) HTN (hypertension) (5) HLD (hyperlipidemia) Goals to Promote Your Health * To prevent worsening of your condition and complications * To maintain your health at the optimal level Directions to Meet Your Goals Take your medications as prescribed Follow your dietary instruction Follow activity as directed Keep your appointments as scheduled Take your immunizations and boosters as scheduled If your symptoms worsen call your PCP, if no PCP go to Urgent Care Center or Emergency Room Smoking is Dangerous to Your Health. Avoid second hand smoke Call the 24-hour hour crisis hotline for domestic abuse at Saloni Wynne PA-C March 03, 2018 12:55
[2018-03-03] MEDS: cefTRIAXone INJ 1,000 MG in SODIUM CHLORIDE 0.9% INJ 100 ML IV SCH (12:57)
== END 2018-03-03 18:01 | disposition home or self-care (01) ==
LOC: NEPC 20:23 → NEDA 03-02 00:48 → NEPHCDU 03-02 01:23
PROVIDERS: ADMIT Hospitalist; ATTEND Hospitalist
DX: M79.605 Pain in left leg (principal); I12.9 Hypertensive chronic kidney disease with stage 1 through stage 4 chronic kidney disease, or unspecified chronic kidney disease; N18.9 Chronic kidney disease, unspecified; R94.31 Abnormal electrocardiogram [ECG] [EKG]; R11.0 Nausea; N39.0 Urinary tract infection, site not specified; I25.10 Atherosclerotic heart disease of native coronary artery without angina pectoris; E78.5 Hyperlipidemia, unspecified; J44.9 Chronic obstructive pulmonary disease, unspecified; K21.9 Gastro-esophageal reflux disease without esophagitis; E03.9 Hypothyroidism, unspecified; F41.9 Anxiety disorder, unspecified; M48.061 Spinal stenosis, lumbar region without neurogenic claudication; M43.16 Spondylolisthesis, lumbar region; M16.12 Unilateral primary osteoarthritis, left hip; Z95.1 Presence of aortocoronary bypass graft; Z79.899 Other long term (current) drug therapy; Z79.82 Long term (current) use of aspirin; Z86.73 Personal history of transient ischemic attack (TIA), and cerebral infarction without residual deficits
CPT/HCPCS: 71045; 72148; 72170; 73552; 73700; 80048; 80053; 81001; 85025; 85610; 85652; 85730; 86140; 87077; 87086; 87186; 93005; 96365; 96366; 96372; 96375; 97116; 97162; 99285; G0378; G8987; G8988; J0696; J1644; J1885; J2060

== ENCOUNTER 2018-03-20 16:27 | Emergency (ER) | payer OTHER ==
[~2018-03-20] VITALS: Ht 162.6 cm; Wt 75.0 kg
[~2018-03-20 16:27] MED LIST changes: -AUGM875T3 PO; +CEFU1TAB20 PO; +CYCL10TA PO; +TRAM50 PO
[2018-03-20 16:37] VITALS: BP 134/84; PULSE 86; RESP 18; TEMP 98.4; O2SAT 97
[2018-03-20] MEDS ORDERED: oxyCODONE/ACETAMINOPHEN 5 MG/325 MG TAB PO ONE (17:15)
[2018-03-20] MEDS ORDERED: ONDANSETRON ODT 4 MG TAB PO ONE (17:15)
--- NOTE | 2018-03-20 18:07 | PD ---
HPI Chief Complaint: Back/ Neck Pain or Injury Time Seen by Provider: 17:03 Travel History International Travel<30 days: No Contact w/Intl Traveler<30days: No Traveled to known affect area: No History of Present Illness HPI 77-year-old female complains of chronic pain. She has undergone MRI of the spine lower extremity CT multiple plain films of the pelvis and extremities. The patient was admitted due to intractable pain. She was seen by Dr. Mejia. She was discharged home with Lyrica and meloxicam. Neither seem to help much at all. Meloxicam was changed to Naprosyn. Patient evidently has pain 10/10 in severity which is constant and worse with any attempts at active or passive range of motion. Patient does have follow-up with neurology and pain management. Pain is now constant and severe and the patient is essentially unable to move at home with the pain is bad as it is. No numbness tingling weakness. No fever. PFSH Past Medical History Hx Anticoagulant Therapy: Yes Arthritis: Yes Asthma: No Blood Disorders: No Anxiety: Yes Heart Rhythm Problems: Yes (palpitations) Cancer: No Cardiovascular Problems: Yes (BYPASS) High Cholesterol: Yes Chemotherapy: No Chest Pain: No Congestive Heart Failure: No COPD: No Cerebrovascular Accident: Yes Diabetes: No Diminished Hearing: No Endocrine: Yes Gastrointestinal Disorders: Yes (hernia) Genitourinary: Yes (FREQUENT KIDNEY INFECTIONS) Hypertension: Yes Immune Disorder: No Implanted Vascular Access Dvce: No Musculoskeletal: Yes (arthritis) Neurologic: Yes (stroke 1995) Psychiatric: Yes Reproductive: No Respiratory: No Radiation Therapy: No Renal Failure: Yes Sleep Apnea: No Thyroid Disease: Yes ?: Not Menopausal: Yes Tubal Ligation: Yes Past Surgical History Abdominal Surgery: Yes (hernia repair) Cardiac Surgery: Yes (open heart) Coronary Artery Bypass Graft: Yes Gynecologic Surgery: Yes (tubal ligation) Other Surgery: Yes (open heart, tubal ligation, hernia repair, aneurysm) Social History Alcohol Use: Yes (OCC) Tobacco Use: No Substance Use: No Allergies-Medications (Allergen,Severity, Reaction): Coded Allergies: atorvastatin (Unverified Allergy, Severe, Cramping, 03/01/18) pravastatin (Unverified Allergy, Severe, Cramping, 03/01/18) prednisone (Unverified Allergy, Severe, AL, 03/01/18) simvastatin (Unverified Allergy, Severe, Cramping, 03/01/18) codeine (Unverified Adverse Reaction, Severe, 03/01/18) dopamine (Unverified Adverse Reaction, Severe, 03/01/18) morphine (Unverified Adverse Reaction, Severe, 03/01/18) rivaroxaban (Unverified Adverse Reaction, Severe, 03/01/18) Reported Meds & Prescriptions Reported Meds & Active Scripts Active Cefuroxime (Cefuroxime Axetil) 500 Mg Tab 500 Mg PO BID 5 Days Ultram (Tramadol HCl) 50 Mg Tab 50 Mg PO Q6H PRN 3 Days Flexeril (Cyclobenzaprine HCl) 10 Mg Tab 5 Mg PO Q8H PRN Reported Clonidine (Clonidine HCl) 0.1 Mg Tab 0.1 Mg PO BID PRN Ezetimibe 10 Mg Tab 10 Mg PO HS Citalopram (Citalopram Hydrobromide) 20 Mg Tab 20 Mg PO HS Multi Vitamin Daily (Multiple Vitamin) 1 Tab Tab 1 Tab PO DAILY Acidophilus Capsule (L. Acidophilus/Pectin, [place]) 1 Each Capsule 1 Cap PO DAILY Vitamin D-3 (Cholecalciferol) 2,000 Unit Tab 1 Cap PO DAILY Amlodipine (Amlodipine Besylate) 5 Mg Tab 5 Mg PO DAILY Buspirone (Buspirone HCl) 5 Mg Tab 5 Mg PO BID Levothyroxine (Levothyroxine Sodium) 50 Mcg Tab 50 Mcg PO DAILY Isosorbide Mononitrate ER (Isosorbide Mononitrate) 30 Mg Patrick 30 Mg PO DAILY Losartan (Losartan Potassium) 50 Mg Tab 50 Mg PO BID Aspir-Low (Aspirin) 81 Mg Tabdr 81 Mg PO DAILY Vitamin B-12 (Cyanocobalamin) 1,000 Mcg Tab 1,000 Mcg PO DAILY Omeprazole 20 Mg Tab 20 Mg PO DAILY Review of Systems Except as stated in HPI: all other systems reviewed are Neg General / Constitutional: No: Fever Physical Exam Narrative GENERAL: Pleasant 77-year-old female mild distress secondary pain Vital Signs Date Time Temp Pulse Resp B/P (MAP) Pulse Ox O2 Delivery O2 Flow Rate FiO2 03/20/18 16:45 86 18 03/20/18 16:37 98.4 86 18 134/84 (101) 97 SKIN: Warm and dry. HEAD: Atraumatic. Normocephalic. EYES: Pupils equal and round. No scleral icterus. No injection or drainage. ENT: No nasal bleeding or discharge. Mucous membranes pink and moist. NECK: Trachea midline. No JVD. CARDIOVASCULAR: Regular rate and rhythm. RESPIRATORY: No accessory muscle use. Clear to auscultation. Breath sounds equal bilaterally. GASTROINTESTINAL: Abdomen soft, non-tender, nondistended. Hepatic and splenic margins not palpable. MUSCULOSKELETAL: There is no focal spinal tenderness. There is minimal tenderness about the left greater trochanter. There is a palpable dorsalis pedis on the right and posterior tibialis bilaterally. There is a faintly palpable dorsalis pedis on the left which is audible with Doppler. There is less than 2 second capillary refill on the left side. No evidence of DVT on either side. NEUROLOGICAL: Awake and alert. No obvious cranial nerve deficits. Motor grossly within normal limits. Five out of 5 muscle strength in the arms and legs. Normal speech. PSYCHIATRIC: Appropriate mood and affect; insight and judgment normal. Data Data Last Documented VS Vital Signs Date Time Temp Pulse Resp B/P (MAP) Pulse Ox O2 Delivery O2 Flow Rate FiO2 03/20/18 16:45 86 18 03/20/18 16:37 98.4 134/84 (101) 97 Orders Orders Oxycodone-Acetamin 5-325 Mg (Percocet (03/20/18 17:15) Ondansetron Odt (Zofran Odt) (03/20/18 17:15) [facility] Medical Decision Making Medical Screen Exam Complete: Yes Emergency Medical Condition: Yes Medical Record Reviewed: Yes Differential Diagnosis Chronic pain, sciatica, neuropathy Narrative Course Patient has chronic severe pain. The diagnostic evaluation has been performed and we see multilevel spinal stenosis on MRI of the lumbar spine. Arthritis is otherwise observed. There is no arterial occlusive disease however there is some concern for claudication and decreased arterial flow based on bedside exam and follow-up with vascular surgery may be of some benefit. Patient at this point should continue with baby aspirin. Will provide a short-term course of Percocet as the patient has follow-up with Dr. Weeks in about [address] Jonas is pending. Diagnosis Primary Impression: Chronic pain Qualified Codes: G89.29 - Other chronic pain Referrals: Jeff Sorenson MD,Ignacio Mejia,Akira Mcnally MD Med/Other Pt SpecificInfo: Prescription(s) given Scripts Oxycodone-Acetaminophen (Percocet) 5-325 mg Tab 1-2 TAB PO Q6H Y for PAIN SCALE 6 TO 10, #20 TAB 0 Refills Prov: Michele Elizabeth MD 03/20/18 Disposition: 01 DISCHARGE HOME Condition: Stable Michele Elizabeth MD March 20, 2018 18:07
[2018-03-20] MEDS ORDERED: PERC5TAB12 PO (18:27)
[2018-03-20 19:52] VITALS: BP 118/54
== END 2018-03-20 19:53 | disposition home or self-care (01) ==
LOC: NEPD 16:27
DX: G89.29 Other chronic pain (principal); M19.90 Unspecified osteoarthritis, unspecified site; E78.00 Pure hypercholesterolemia, unspecified; I10 Essential (primary) hypertension; E07.9 Disorder of thyroid, unspecified; Z95.1 Presence of aortocoronary bypass graft; Z86.73 Personal history of transient ischemic attack (TIA), and cerebral infarction without residual deficits; Z79.82 Long term (current) use of aspirin
CPT/HCPCS: 99283

== ENCOUNTER 2018-05-18 16:54 | Inpatient (IN) ==
--- NOTE | 2018-05-18 19:18 | ED ---
HPI General Chief complaint: Recheck/Abnormal Lab/Rx Stated complaint: Doc Sent/abnl labs Time Seen by Provider: 05/18/18 18:03 Source: patient and family Mode of arrival: ambulatory Limitations: no limitations History of Present Illness HPI Narrative: Patient is a 77-year-old female with history of claudication recently started on Plavix for her claudication, who presents with complaint of fatigue and generalized weakness. She reports that she had labs done and was told she was anemic and need to come to the ED. She denies bleeding gums, abdominal pain, change in stool. She denies chest pain, shortness of breath, leg swelling/pain. MD Complaint: generalized weakness and lack of energy Onset (ago): day(s) Duration: constant Location: generalized Migration: none Severity: mild Relieving factors: none Exacerbating factors: none Context: new medication Related Data Allergies Allergy/AdvReac Type Severity Reaction Status Date / Time atorvastatin Allergy Severe Cramping Unverified 03/01/18 20:52 pravastatin Allergy Severe Cramping Unverified 03/01/18 20:52 prednisone Allergy Severe AL Unverified 03/01/18 20:52 simvastatin Allergy Severe Cramping Unverified 03/01/18 20:52 codeine AdvReac Severe Unverified 03/01/18 20:52 dopamine AdvReac Severe Unverified 03/01/18 20:52 morphine AdvReac Severe Unverified 03/01/18 20:52 rivaroxaban AdvReac Severe Unverified 03/01/18 20:52 Review of Systems Except as stated in HPI: all other systems reviewed are negative Constitutional Reports fatigue and Denies fever(s) Eyes Denies change in vision ENT Denies bleeding gums and Denies epistaxis Cardiovascular Denies chest pain and Denies diaphoresis Respiratory Reports dyspnea on exertion Gastrointestinal Denies melena, Denies hematochezia, Denies change in bowel habits, Denies coffee ground emesis, Denies loose stools, Denies vomiting and Denies hematemesis Genitourinary Denies abnormal vaginal bleeding Musculoskeletal Denies back pain Integumentary/Breasts Denies rash and Denies skin ulcer Neurologic Denies confusion and Denies syncope Psychiatric Denies irritability Endocrine Reports fatigue Hematologic/Lymphatic Denies easy bleeding and Denies easy bruising [facility] Medical History Medical History Coronary artery disease (Acute) GERD (gastroesophageal reflux disease) (Acute) Hypertension (Acute) Hypothyroid (Acute) Stroke (Acute) Surgical History Surgical History History of quadruple bypass (Acute) Social History Social History Smoking Status: Former smoker Tobacco Type: Cigarettes How Often Do You Have a Drink Containing Alcohol: 2 to 4 times a month Recent Travel in [facility] within the Last 8 Weeks: No Recent Out of Country Travel within the Last 8 Weeks: No Immunization History Tetanus Immunization: <5 Years Hx Influenza Vaccine This Season: Yes Exam Narrative Exam Narrative: GENERAL: Well-appearing, pale female SKIN: Focused skin assessment warm/dry. HEAD: Atraumatic. Normocephalic. EYES: Pupils equal and round. No scleral icterus. No injection or drainage. ENT: No nasal bleeding or discharge. Mucous membranes pink and moist. NECK: Trachea midline. No JVD. CARDIOVASCULAR: Regular rate and rhythm. No murmur appreciated. Intact peripheral pulses. RESPIRATORY: No accessory muscle use. Clear to auscultation. Breath sounds equal bilaterally. GASTROINTESTINAL: Abdomen soft, non-tender, nondistended. Hepatic and splenic margins not palpable. Rectal exam did not reveal gross blood nor melena. Guaiac negative. MUSCULOSKELETAL: No obvious deformities. No clubbing. No cyanosis. No edema. NEUROLOGICAL: Awake and alert. No obvious cranial nerve deficits. Motor grossly within normal limits. Normal speech. PSYCHIATRIC: Appropriate mood and affect; insight and judgment normal. Course Hospital Course: Patient was placed on a engine monitor. IV access was obtained. Bedside rectal exam did not reveal blood. EKG without acute ischemic changes. Labs have been sent. Reevaluation(s) Reevaluation #1: Patient states that she feels well. Troponin is elevated. Repeat EKG without acute ischemic changes. She continues to deny chest pain and states she has not had dyspnea while here. Time: 20:29 Consultations Consultation #1: I spoke with Dr Elizabeth of Cardiology whom recommended that the patient be placed on a heparin drip without boluses. It was also recommended that the admitting physician obtain a repeat hemoglobin overnight to ensure that her Hgb is not decreasing immensely overnight. Time: 20:43 Initial Documented Vital Signs Temperature 98.7 F 05/18/18 17:30 Pulse Rate 104 H 05/18/18 17:30 Respiratory Rate 24 05/18/18 17:30 Blood Pressure 132/60 05/18/18 17:30 Pulse Oximetry 95 05/18/18 17:30 Last Documented Vital Signs Temperature 98.7 F 05/18/18 17:30 Pulse Rate 96 H 05/18/18 19:59 Respiratory Rate 18 05/18/18 19:59 Blood Pressure 149/65 H 05/18/18 19:59 Pulse Oximetry 95 05/18/18 19:59 Medical Decision Making MDM Narrative Medical decision making narrative: Patient is a 77-year-old female who presents with complaint of fatigue and generalized weakness. Initial EKG with unclear baseline but showed slight downsloping of the ST segment in leads I and aVL without acute ST elevations. Workup concerning for acute anemia in addition to an NSTEMI. I spoke with Dr. Elizabeth the on-call physical trainer for Dr. Robert, who recommended that she be started on a heparin drip without the bolus. She took her Plavix today this aspirin has not been given. She has been admitted to the on-call hospitalist for further workup and management. Differential Diagnosis Differential Diagnosis: Differential diagnosis including but not limited to acute blood loss anemia, GI bleed, ACS, cancer, infection. Lab Data Lab results reviewed: Yes I reviewed the patient's lab results. Lab results narrative: Labs reveal acute blood loss anemia in addition to an elevated troponin. Result diagrams: 05/18/18 18:44 05/18/18 18:44 Lab Results 05/18/18 05/18/18 05/18/18 Range/Units 18:44 18:44 18:44 WBC 9.9 (4.0-11.0) th/mm3 RBC 3.50 L (4.00-5.30) mil/mm3 Hgb 7.2 L (11.6-15.3) gm/dL Hct 23.8 L (35.0-46.0) % MCV 67.9 L (80.0-100.0) fL MCH 20.6 L (27.0-34.0) pg MCHC 30.3 L (32.0-36.0) % RDW 20.6 H (11.6-17.2) % Plt Count 544 H (150-450) th/mm3 MPV 8.2 (7.0-11.0) fL Neut % (Auto) 76.1 H (16.0-70.0) % Lymph % (Auto) 8.8 L (9.0-44.0) % [place] % (Auto) 11.5 H (0.0-8.0) % Eos % (Auto) 3.0 (0.0-4.0) % Baso % (Auto) 0.6 (0.0-2.0) % Neut # (Auto) 7.5 (1.8-7.7) th/mm3 Lymph # (Auto) 0.9 L (1.0-4.8) th/mm3 [place] # (Auto) 1.1 H (0.0-0.9) th/mm3 Eos # (Auto) 0.3 (0.0-0.4) th/mm3 Baso # (Auto) 0.1 (0.0-0.2) th/mm3 WBC Differential . Differential Comment Auto diff final Sodium 144 (136-145) meq/L Potassium 4.6 (3.5-5.1) meq/L Chloride 109 H (98-107) meq/L Carbon Dioxide 24.6 (21.0-32.0) meq/L Anion Gap 10 (5-15) meq/L BUN 21 H (7-18) mg/dL Creatinine 1.36 H (0.50-1.00) mg/dL Estimated GFR 38 L (>89) mL/min Random Glucose 101 (74-106) mg/dL Calcium 9.0 (8.5-10.1) mg/dL Troponin I 0.49 H (0.02-0.05) ng/mL Blood Type B Negative Blood Type Recheck Not needed Antibody Screen Positive H Imaging Data Attestation: I personally reviewed and interpreted this imaging study as follows : My impression: Large hiatal hernia present. No acute findings within the chest. Radiologist's impression: Chest X-Ray 05/18/18 18:33 CONCLUSION: No acute findings. Stable blunting of the left costophrenic angle, upper lobe parenchymal disease and bronchiectasis. ECG Data EKG Prior to Arrival: No Attestation: I personally reviewed and interpreted this ECG as follows: ( Initial EKG shows sinus rhythm at a rate of 91 there is artifact present which makes some of the baseline difficult to ascertain. No visible ST elevations present though some slight downsloping in 1 and aVL is present. Previous EKG has too much artifact with which to compare. Repeat EKG shows sinus rhythm at a rate of 90 with again slight downsloping of the ST segment in 1 and aVL with slight elevation of aVR that does not meet criteria for activation.) Prior ECG tracings: available for review Discharge Plan Discharge Disposition Patient Disposition: 30 Still Patient Discharge Condition Condition: Stable Discharge Details Diagnosis: Acute non-ST elevation myocardial infarction (NSTEMI), Anemia Physicians Team ED Provider: Shabnam Mcgee Primary Care Provider: UNKNOWN, Attending Provider: Deepa Barraza Other Providers: Hema Robert Status ED Status: Admitted Patient
[2018-05-18 19:26] LABS: Baso # (Auto) 0.1 th/mm3 (0.0-0.2); Baso % (Auto) 0.6 % (0.0-2.0); Eos # (Auto) 0.3 th/mm3 (0.0-0.4); Hematocrit 23.8 % (35.0-46.0); Hemoglobin 7.2 gm/dL (11.6-15.3); Lymph # (Auto) 0.9 th/mm3 (1.0-4.8); Lymph % (Auto) 8.8 % (9.0-44.0); Mean Corpuscular Hemoglobin 20.6 pg (27.0-34.0); Mean Corpuscular Volume 67.9 fL (80.0-100.0); Mean Platelet Volume 8.2 fL (7.0-11.0); Mono # (Auto) 1.1 th/mm3 (0.0-0.9); Mono % (Auto) 11.5 % (0.0-8.0); Neut # (Auto) 7.5 th/mm3 (1.8-7.7); Neut % (Auto) 76.1 % (16.0-70.0); Platelet Count 544 th/mm3 (150-450); Red Cell Distribution Width 20.6 % (11.6-17.2); White Blood Count 9.9 th/mm3 (4.0-11.0)
[2018-05-18 19:32] LABS: Mean Corpuscular HGB Conc 30.3 % (32.0-36.0)
[2018-05-18 19:45] LABS: Carbon Dioxide 24.6 meq/L (21.0-32.0)
[2018-05-18 19:46] LABS: Potassium 4.6 meq/L (3.5-5.1)
[2018-05-18 19:48] LABS: Troponin I 0.49 ng/mL (0.02-0.05)
--- NOTE | 2018-05-18 20:03 | XR ---
EXAM DATE: 05/18/2018 7:23 PM EDT AGE/SEX: 77 years / Female INDICATIONS: CLINICAL DATA: This is the patient's encounter. Patient reports that signs and symptoms have been pr esent for and indicates a pain score of . MEDICAL/SURGICAL HISTORY: COMPARISON: [facility], XR CHEST PA AND LAT, 05/17/2018. . FINDINGS: Coarse areas of parenchymal scarring and bronchiectasis in the upper lobes have a similar appearance to prior examination. No focal areas of consolidation. Large hiatus hernia. Blunting of the costophre winston angle on the left side stable from prior. The heart is upper limits normal size. Prior median jose rnotomy with 7 intact sternal wire sutures. CONCLUSION: No acute findings. Stable blunting of the left costophrenic angle, upper lobe parenchymal disease and bronchiectasis. Electronically signed by: Huey Bateman MD 05/18/2018 8:02 PM EDT
[2018-05-18] MEDS ORDERED: Heparin Drip 25,000 UNIT/250 ML BAG IV.CONT PRN (20:37)
[2018-05-18] MEDS ORDERED: Bisacodyl 10 MG Supp RECTAL PRN (21:02)
--- NOTE | 2018-05-18 21:30 | P.HP ---
History of Present Illness Service: [facility] Primary Care Physician: UNKNOWN History of Present Illness: 77-year-old female with a past medical history significant for hypertension, hyperlipidemia and coronary artery disease presents to the emergency department for the evaluation of a hemoglobin of 6.8. The patient had outpatient lab work done because she has a history of anemia requiring transfusions in the past. She reports for the past 3-4 weeks she has been feeling fatigued, weak, short of breath with exertion and occasional dizziness. She denies any associated chest pain or abdominal pain. She denies any nausea or vomiting. Her bioinformatics computer scientist is Dr. Robert. Approximately 1 week ago she was placed on Plavix. No fever/chills. No lateralizing signs/symptoms. On lab work the patient's hemoglobin was found to be 7.2. Troponin elevated at 0.49. Inpatient Certification: I certify that the inpatient services were ordered in accordance with Medicare regulations governing the order. This includes certification that hospital inpatient services are reasonable and necessary and in the case of services not specified as inpatient-only under 42 CFR 419.22(n), that they are appropriately provided as inpatient services in accordance to with the 2-midnight benchmark under 43 CFR 412.3(e) Estimated Total Length of Stay (Days): 2 Plans for Post Hospital Care: Home Review of Systems All other systems reviewed negative except as stated in HPI [facility] - History History Provided By: Patient, Family Member - Medical History Medical History: Medical History (Last Reviewed 05/18/18 @ 19:25 by Shabnam Mcgee MD) Coronary artery disease GERD (gastroesophageal reflux disease) Hypertension Hypothyroid Stroke - Surgical History Surgical History: Surgical History (Last Reviewed 05/18/18 @ 19:25 by Shabnam Mcgee MD) History of quadruple bypass - Tobacco History Tobacco Use In Past 30 Days: No Smoking Status: Former smoker Tobacco Type: Cigarettes - Alcohol History How Often Do You Have a Drink Containing Alcohol: 2 to 4 times a month - Travel History Recent Travel in the [place] Within the Last 8 Weeks: No Recent Travel Out of the Country Within the Last 8 Weeks: No - Immunization History Tetanus Immunization: <5 Years Hx Influenza Vaccine This Season: Yes Medications and Allergies Active Medications: Active Medications Al Hydroxide/Mg Hydroxide (Milk Of Eunice Liq) 30 ml PO Q12H PRN PRN Reason: Mild Constipation Bisacodyl (Dulcolax Supp) 10 mg RECTAL DAILY PRN PRN Reason: SEVERE CONSITIPATION Heparin Sodium/Dextrose (Heparin/D5w 25,000 U/250 Ml) 25,000 unit in 250 mls @ 0 mls/hr IV.CONT TITRATE PRN; Protocol PRN Reason: Per Protocol Lactulose (Lactulose Liq) 30 ml PO DAILY PRN PRN Reason: SEVERE CONSITIPATION Sennosides (Senokot) 17.2 mg PO Q12H PRN PRN Reason: Moderate Constipation Sodium Chloride (Ns Flush) 2 ml IV.FLUSH PRN PRN PRN Reason: FLUSH AFTER USING IV ACCESS Allergies Allergy/AdvReac Type Severity Reaction Status Date / Time atorvastatin Allergy Severe Cramping Unverified 03/01/18 20:52 pravastatin Allergy Severe Cramping Unverified 03/01/18 20:52 prednisone Allergy Severe AL Unverified 03/01/18 20:52 simvastatin Allergy Severe Cramping Unverified 03/01/18 20:52 codeine AdvReac Severe Unverified 03/01/18 20:52 dopamine AdvReac Severe Unverified 03/01/18 20:52 morphine AdvReac Severe Unverified 03/01/18 20:52 rivaroxaban AdvReac Severe Unverified 03/01/18 20:52 Exam Vital signs: Vital Signs 05/18/18 17:30 05/18/18 18:15 05/18/18 19:59 Temperature 98.7 F Pulse Rate 104 H 100 H 96 H Respiratory Rate 24 19 18 Blood Pressure 132/60 148/61 H 149/65 H Pulse Oximetry 95 97 95 Intake & Output 05/18/18 05/18/18 05/19/18 06:59 18:59 06:59 Weight 68.492 kg Narrative: Gen.: No acute distress Head: Normocephalic. Atraumatic. EENT: Pupils equal round and reactive to light. Nose without drainage. Airway intact. Throat without injection. Cardiovascular: Regular rate and rhythm. No murmurs, rubs or gallops. Respiratory: Lungs clear to auscultation bilaterally. No wheezes or rhonchi. Abdomen: Soft, nontender, nondistended. No peritoneal signs. Musculoskeletal: No gross deformities. No edema. Skin: No obvious rashes or erythema. Neuro: Sensory and motor grossly intact. Cranial nerves II through XII grossly intact. Psych: Appropriate mood and affect Results - Labs CBC & Chem 7: 05/18/18 18:44 07 18:44 Labs: Laboratory Results - last 24 hr 05/18/181818 0718 18:44 18:44 18:44 WBC 9.9 RBC 3.50 L Hgb 7.2 L Hct 23.8 L MCV 67.9 L MCH 20.6 L MCHC 30.3 L RDW 20.6 H Plt Count 544 H MPV 8.2 Neut % (Auto) 76.1 H Lymph % (Auto) 8.8 L [place] % (Auto) 11.5 H Eos % (Auto) 3.0 Baso % (Auto) 0.6 Neut # (Auto) 7.5 Lymph # (Auto) 0.9 L [place] # (Auto) 1.1 H Eos # (Auto) 0.3 Baso # (Auto) 0.1 WBC Differential . Differential Comment Auto diff final Sodium 144 Potassium 4.6 Chloride 109 H Carbon Dioxide 24.6 Anion Gap 10 BUN 21 H Creatinine 1.36 H Estimated GFR 38 L Random Glucose 101 Calcium 9.0 Troponin I 0.49 H Blood Type B Negative Blood Type Recheck Not needed Antibody Screen Positive H - Imaging Impressions Chest X-Ray 05/18/18 18:33 CONCLUSION: No acute findings. Stable blunting of the left costophrenic angle, upper lobe parenchymal disease and bronchiectasis. Caprini VTE Risk Assessment Caprini VTE Risk Assessment: Moderate/High Risk (score >= 2) Caprini Risk Assessment Model: Point Value = 1 Point Value = 2 Point Value = 3 Point Value = 5 Age 41-60 Minor surgery BMI > 25 kg/m2 Swollen legs Varicose veins or History of unexplained or recurrent spontaneous Oral contraceptives or hormone replacement Sepsis (< 1 month) Serious lung disease, including pneumonia (< 1 month) Abnormal pulmonary function Acute myocardial infarction Congestive heart failure (< 1 month) History of inflammatory bowel disease Medical patient at bed rest Age 61-74 Arthroscopic surgery Major open surgery (> 45 min) Laparoscopic surgery (> 45 min) Malignancy Confined to bed (> 72 hours) Immobilizing plaster cast Central venous access Age >= 75 History of VTE Family history of VTE Factor V Leiden Prothrombin [id number] Lupus anticoagulant Anticardiolipin antibodies Elevated serum homocysteine Heparin-induced thrombocytopenia Other congenital or acquired thrombophilia Stroke (< 1 month) Elective arthroplasty Hip, pelvis, or leg fracture Acute spinal cord injury (< 1 month) Prophylaxis Regimen: Total Risk Factor Score Risk Level Prophylaxis Regimen 0-1 Low Early ambulation 2 Moderate Order ONE of the following: *Sequential Compression Device (SCD) *Heparin 5000 units SQ BID 3-4 Higher Order ONE of the following medications: *Heparin 5000 units SQ TID *Enoxaparin/Lovenox 40 mg SQ daily (WT < 150 kg, CrCl > 30 mL/min) *Enoxaparin/Lovenox 30 mg SQ daily (WT < 150 kg, CrCl > 10-29 mL/min) *Enoxaparin/Lovenox 30 mg SQ BID (WT < 150 kg, CrCl > 30 mL/min) AND/OR *Sequential Compression Device (SCD) 5 or more Highest Order ONE of the following medications: *Heparin 5000 units SQ TID (Preferred with Epidurals) *Enoxaparin/Lovenox 40 mg SQ daily (WT < 150 kg, CrCl > 30 mL/min) *Enoxaparin/Lovenox 30 mg SQ daily (WT < 150 kg, CrCl > 10-29 mL/min) *Enoxaparin/Lovenox 30 mg SQ BID (WT < 150 kg, CrCl > 30 mL/min) AND *Sequential Compression Device (SCD) Assessment and Plan - Plan Assessment/plan: 1. NSTEMI Initial troponin 0.[address] segment elevations or depressions, personally reviewed Patient's bioinformatics computer scientist, Dr. Robert consulted, appreciate recommendations Heparin drip 2. Symptomatic anemia Hemoglobin 7.2 Repeat at midnight Transfuse as needed 3. Hypertension/hyperlipidemia/CAD Resume home medications once medication reconciliation completed FEN N.p.o. Electrolytes: Monitor and replete as needed Heparin drip
[2018-05-18 22:43] LABS: Activated Partial Thrombo Time 23.6 sec (24.3-30.1); INR 1.1 Ratio; Prothrombin Time 10.7 sec (9.8-11.6)
[2018-05-19 00:53] LABS: Hematocrit 19.5 % (35.0-46.0)
[2018-05-19] MEDS ORDERED: Sodium Chlor 0.9% Inj 250 ML IV.SIG SCH ×2 (01:00→10:00)
[2018-05-19 01:03] LABS: Troponin I 0.42 ng/mL (0.02-0.05)
[2018-05-19 07:45] LABS: Baso # (Auto) 0.1 th/mm3 (0.0-0.2); Baso % (Auto) 0.9 % (0.0-2.0); Eos # (Auto) 0.3 th/mm3 (0.0-0.4); Eos % (Auto) 4.2 % (0.0-4.0); Lymph # (Auto) 1.1 th/mm3 (1.0-4.8); Lymph % (Auto) 14.5 % (9.0-44.0); Mean Corpuscular Hemoglobin 20.3 pg (27.0-34.0); Mean Corpuscular Volume 66.2 fL (80.0-100.0); Mean Platelet Volume 7.9 fL (7.0-11.0); Mono # (Auto) 0.8 th/mm3 (0.0-0.9); Mono % (Auto) 10.9 % (0.0-8.0); Neut # (Auto) 5.3 th/mm3 (1.8-7.7); Neut % (Auto) 69.5 % (16.0-70.0); Platelet Count 471 th/mm3 (150-450); Red Blood Count 2.99 mil/mm3 (4.00-5.30); Red Cell Distribution Width 20.9 % (11.6-17.2); White Blood Count 7.6 th/mm3 (4.0-11.0)
[2018-05-19 07:51] LABS: Mean Corpuscular HGB Conc 30.7 % (32.0-36.0)
[2018-05-19 07:54] LABS: Hematocrit 19.8 % (35.0-46.0); Hemoglobin 6.1 gm/dL (11.6-15.3)
[2018-05-19 08:24] LABS: Troponin I 0.34 ng/mL (0.02-0.05)
[2018-05-19 08:27] LABS: Calcium 8.6 mg/dL (8.5-10.1); Potassium 3.7 meq/L (3.5-5.1)
--- NOTE | 2018-05-19 08:46 | MB ---
cc: Bernardo Browne MD DATE: 05/19/2018 REASON FOR CONSULTATION: Abnormal troponin levels. HISTORY OF PRESENT ILLNESS: The patient is a 77-year-old white female, followed in our office by Dr. Hema Robert, with a history of multiple medical problems including coronary artery disease, hypertension, hyperlipidemia, paroxysmal atrial flutter, who was sent to the hospital by her primary care doctor as she was found to be severely anemic. The patient states for the past 3 weeks, she has had severe fatigue and intermittent moderate to severe lightheadedness without syncope or near syncope. She denies chest pain, shortness of breath, pedal edema, paroxysmal nocturnal dyspnea, palpitations. PAST MEDICAL HISTORY: 1. History of chronic recurrent anemia, apparently unclear etiology. 2. Coronary artery disease status post bypass surgery in the . Her last heart catheterization was 03/02/2012 showing 25% left main stenosis, 70% LAD disease with a patent left internal mammary artery to the LAD, severe diagonal (small) disease, totally occluded collateralized right coronary, totally occluded obtuse marginal with a patent radial artery to the obtuse marginal, ejection fraction 65%. 3. History of cerebrovascular accident. 4. Chronic obstructive pulmonary disease. 5. Hepatitis B. 6. Hyperlipidemia. 7. Hypertension. 8. Hypothyroidism. 9. Paroxysmal atrial flutter 2013. 10. Pulmonary embolism 05/2014. CARDIAC MEDICATIONS AT HOME: 1. Amlodipine 10 mg daily. 2. Clonidine 0.1 mg b.i.d. p.r.n. 3. Plavix 75 mg daily. 4. Hydrochlorothiazide 12.5 mg daily. 5. Isosorbide mononitrate 30 mg daily. 6. Losartan 50 mg daily. 7. Zetia 10 mg daily. ALLERGIES: DOPAMINE, MORPHINE, PREDNISONE, STATINS, XARELTO. FAMILY HISTORY: Noncontributory. SOCIAL HISTORY: The patient is a former smoker. There is no history of alcohol abuse. REVIEW OF SYSTEMS: As in history of present illness, otherwise negative or noncontributory. She also denies melena, dyspepsia, bright red blood per rectum, fevers, headache. PHYSICAL EXAMINATION: VITAL SIGNS: Her blood pressure 159/69 with a pulse of 70, respirations 20. GENERAL: She is a well-developed, well-nourished white female, in no acute distress. NECK: Jugular venous pressure is normal. Carotid pulses are 2+ bilaterally without bruits. CHEST: Reveals clear lungs holman. CARDIAC: She has a regular rhythm and rate without S3, S4, or murmur. ABDOMEN: She has a soft, nontender abdomen. Bowel sounds are present. There is no definite hepatosplenomegaly. EXTREMITIES: Reveals no clubbing, cyanosis or edema. LABORATORY DATA: EKG shows normal sinus rhythm, nonspecific ST and T-wave abnormalities. Chest x-ray shows no acute disease. Hemoglobin 6.0, WBC 7.6, platelets 471. Potassium 4.6, BUN 21, creatinine 1.36. Troponin 0.49. CK 30. IMPRESSION: Slightly abnormal troponin levels in this 77-year-old white female with a history of multiple medical problems including coronary artery disease, hypertension, hyperlipidemia, COPD, hepatitis B, paroxysmal atrial flutter, pulmonary embolism in 2013. Overall, I doubt the slightly abnormal troponin level is due to acute myocardial infarction. It is more likely due to "demand ischemia". She has had no recent angina symptoms. EKGs show overall nonspecific ST and T-wave changes. There is no definite evidence for congestive heart failure. RECOMMENDATIONS: 1. No specific recommendations from a cardiac standpoint. Would try to continue her usual home cardiac medications. 2. We will followup as needed. Bernardo Browne MD GHOctavio/TL , 08:28 AM , 08:44 AM [email or web address]
[2018-05-19 08:51] LABS: Ovalocytes 1+; Platelet Morphology Normal (Normal)
--- NOTE | 2018-05-19 09:17 | P.PNIM ---
Subjective Interval history: Reports she has not had any chest pains at all. Reports mild shortness of breath and fatigue during the past few days. No symptoms of palpitations. She has not had any associated abdominal pain. She denies any blood in the stools or black tarry stools. Physical Exam Vital signs: Vital Signs 05/18/18 17:30 05/18/18 18:15 05/18/18 19:59 Temperature 98.7 F Pulse Rate 104 H 100 H 96 H Respiratory Rate 24 19 18 Blood Pressure 132/60 148/61 H 149/65 H Pulse Oximetry 95 97 95 05/18/18 23:40 05/19/18 00:20 05/19/18 04:00 Temperature 99.6 F 99 F Pulse Rate 84 84 63 Respiratory Rate 18 18 Blood Pressure 131/60 158/65 H Pulse Oximetry 91 L 91 L 05/19/18 04:12 05/19/18 06:55 05/19/18 07:16 Temperature 99.4 F 99.1 F Pulse Rate 70 75 71 Respiratory Rate 20 20 Blood Pressure 184/70 H 159/69 H Pulse Oximetry 95 93 L Intake & Output 05/18/18 05/19/18 05/19/18 18:59 06:59 18:59 Intake Total 240 / 240 0 / 0 Balance 240 / 240 0 / 0 Weight 68.492 kg 70.3 kg Intake: Oral 240 / 240 Intake (Blood Product) Amt 0 / 0 Rbc As-3 Leukoreduced Unit 0 / 0 [id number] Other: # Voids 4 # Urine Diapers 2 # Bowel Movements 0 Weight On Admission 69.8 kg Narrative: GENERAL: This is a well-nourished, well-developed patient, in no apparent distress. CARDIOVASCULAR: Regular rate and rhythm without murmurs, gallops, or rubs. RESPIRATORY: Clear to auscultation. Breath sounds equal bilaterally. No wheezes , rales, or rhonchi. GASTROINTESTINAL: Abdomen soft, non-tender, nondistended. Normal active bowel sounds MUSCULOSKELETAL: Extremities without clubbing, cyanosis, or edema. NEURO: Alert & Oriented x4 to person, place, time, situation. Moves all ext x4 Results - Labs CBC & Chem 7: 05/19/18 07:06 05/19/18 07:06 Laboratory Results - last 24 hr 07/05/18/18 05/18/18 18:44 18:44 18:44 WBC 9.9 RBC 3.50 L Hgb 7.2 L Hct 23.8 L MCV 67.9 L MCH 20.6 L MCHC 30.3 L RDW 20.6 H Plt Count 544 H MPV 8.2 Prelim Diff (Auto) Neut % (Auto) 76.1 H Lymph % (Auto) 8.8 L [place] % (Auto) 11.5 H Eos % (Auto) 3.0 Baso % (Auto) 0.6 Neut # (Auto) 7.5 Lymph # (Auto) 0.9 L [place] # (Auto) 1.1 H Eos # (Auto) 0.3 Baso # (Auto) 0.1 WBC Differential . Diff Scan Differential Comment Auto diff final Platelet Estimate Platelet Morphology Ovalocytes PT INR APTT Sodium 144 Potassium 4.6 Chloride 109 H Carbon Dioxide 24.6 Anion Gap 10 BUN 21 H Creatinine 1.36 H Estimated GFR 38 L Random Glucose 101 Calcium 9.0 Total Creatine Kinase Troponin I 0.49 H Blood Type B Negative Blood Type Recheck Not needed Antibody Screen Positive H Antibody Identification MTS Gel Crossmatch 05/18/18 05/18/18 05/19/18 18:44 21:17 00:15 WBC RBC Hgb 6.0 L* Hct 19.5 L* MCV MCH MCHC RDW Plt Count MPV Prelim Diff (Auto) Neut % (Auto) Lymph % (Auto) [place] % (Auto) Eos % (Auto) Baso % (Auto) Neut # (Auto) Lymph # (Auto) [place] # (Auto) Eos # (Auto) Baso # (Auto) WBC Differential Diff Scan Differential Comment Platelet Estimate Platelet Morphology Ovalocytes PT 10.7 INR 1.1 APTT 23.6 L Sodium Potassium Chloride Carbon Dioxide Anion Gap BUN Creatinine Estimated GFR Random Glucose Calcium Total Creatine Kinase Troponin I Blood Type Blood Type Recheck Antibody Screen Antibody Identification Anti-D MTS Gel Crossmatch 05/19/18 05/19/18 05/19/18 00:26 01:04 02:50 WBC RBC Hgb Hct MCV MCH MCHC RDW Plt Count MPV Prelim Diff (Auto) Neut % (Auto) Lymph % (Auto) [place] % (Auto) Eos % (Auto) Baso % (Auto) Neut # (Auto) Lymph # (Auto) [place] # (Auto) Eos # (Auto) Baso # (Auto) WBC Differential Diff Scan Differential Comment Platelet Estimate Platelet Morphology Ovalocytes PT INR APTT 32.7 H D Sodium Potassium Chloride Carbon Dioxide Anion Gap BUN Creatinine Estimated GFR Random Glucose Calcium Total Creatine Kinase 30 Troponin I 0.42 H Blood Type Blood Type Recheck Antibody Screen Antibody Identification MTS Gel Crossmatch See Detail 05/19/18 05/19/18 05/19/18 07:06 07:06 07:06 WBC 7.6 RBC 2.99 L Hgb 6.1 L* Hct 19.8 L* MCV 66.2 L MCH 20.3 L MCHC 30.7 L RDW 20.9 H Plt Count 471 H MPV 7.9 Prelim Diff (Auto) Slide review pending Neut % (Auto) 69.5 Lymph % (Auto) 14.5 [place] % (Auto) 10.9 H Eos % (Auto) 4.2 H Baso % (Auto) 0.9 Neut # (Auto) 5.3 Lymph # (Auto) 1.1 [place] # (Auto) 0.8 Eos # (Auto) 0.3 Baso # (Auto) 0.1 WBC Differential . Diff Scan Auto diff confirmed Differential Comment . Platelet Estimate High H Platelet Morphology Normal Ovalocytes 1+ H PT INR APTT Sodium 144 Potassium 3.7 D Chloride 111 H Carbon Dioxide 24.0 Anion Gap 9 BUN 17 Creatinine 1.04 H Estimated GFR 51 L Random Glucose 95 Calcium 8.6 Total Creatine Kinase 42 Troponin I 0.34 H Blood Type Blood Type Recheck Antibody Screen Antibody Identification MTS Gel Crossmatch - Imaging Impressions Chest X-Ray 05/18/18 18:33 CONCLUSION: No acute findings. Stable blunting of the left costophrenic angle, upper lobe parenchymal disease and bronchiectasis. Assessment and Plan - Plan 77-year-old white female presents with 1. Symptomatic anemia rule out underlying GI bleed. Hemoglobin 7.2 Repeat hemoglobin 6.0 and dropping overnight will discontinue heparin drip now Transfuse total of 4 units of packed red blood cells. GI consult is to be placed to rule out underlying GI bleed for further intervention. She states that she has had previous EGD colonoscopy done last year by Dr. Wagoner with no significant findings. 2. Elevated troponin I likely due to possible chronic kidney disease and demand ischemia from the severe anemia per cardiology no further workup to be done at this time. Will discontinue heparin drip started in the emergency room. Cardiology has signed off. 3. Hypertension, chronic essential Due to anemia will hold off on antihypertensives until stabilized. Discharge Planning: Home when stable.
[2018-05-19] MEDS: Pantoprazole Inj 40 MG Vial IV.PUSH SCH ×2 (12:48→20:00)
[2018-05-19] MEDS ORDERED: Naloxone Inj 0.4 MG/ML Vial IV.PUSH PRN (18:12)
[2018-05-19] MEDS ORDERED: Promethazine 25 MG Supp RECTAL PRN (18:12)
--- NOTE | 2018-05-19 19:22 | ECG ---
Date Performed: 05/19/2018 Time Performed: 02:34:38 PTAGE: 77 years EKG: Sinus rhythm with PAC(s) Extensive ST-T changes are nonspecific Low QRS voltages in precordial leads Borderline E CG PREVIOUS TRACING 05/18/18 Since the previous tracing, no significant change noted DOCTOR: Hema Robert Interpretating Date/Time 05/19/2018 19:20:11
--- NOTE | 2018-05-19 19:22 | ECG ---
Date Performed: 05/18/2018 Time Performed: 20:26:26 PTAGE: 77 years EKG: Sinus rhythm NONSPECIFIC ST & T-WAVE ABNORMALITY BORDERLINE ECG PREVIOUS TRACING : 05/18/2018 18.54 Since the previous tracing, no significant change noted DOCTOR: Hema Robert Interpretating Date/Time 05/19/2018 19:19:39
--- NOTE | 2018-05-19 20:01 | ECG ---
Date Performed: 05/18/2018 Time Performed: 18:54:20 PTAGE: 77 years EKG: Sinus rhythm WITH SINUS ARRHYTHMIA POSSIBLE LEFT ATRIAL ENLARGEMENT SEPTAL MYOCARDIAL INFARCTION ABNORMAL ECG PREVIOUS TRACING : 03/01/[address]-T wave changes Prior tracing is hard to comp are to due to artifact DOCTOR: Hema Robert Interpretating Date/Time 05/19/2018 19:59:10
--- NOTE | 2018-05-19 20:18 | MB ---
cc: Del Wagoner MD, Donato R MD DATE: 05/19/2018 REASON FOR CONSULTATION: Evaluation of recurrent anemia. HISTORY OF PRESENT ILLNESS: A pleasant 77-year-old female known to us. She has a past history of hypertension, hyperlipidemia, coronary artery disease. She presented to the emergency room with shortness of breath, feeling fatigued, weak, tired and had some dizziness. Hemoglobin was 6.8, recheck 6.1. She has been given 3 units of blood. Hemoglobin is now 9.9. Over the past 3 to 4 weeks, she has been feeling fatigued and short of breath and this all started after she was started on Plavix therapy for peripheral vascular disease and poor circulation. She denies any chest pain. Troponins were noted to be elevated at 0.49. Cardiology has been consulted for the possibility of a non-ST MA. The patient is lying in bed comfortably at this time. She has had GI workup of her anemia in the past. In 2017, she had panendoscopy and colonoscopy and capsule endoscopy as well, all unrevealing for a source of her iron deficiency anemia and possible GI blood loss. We have discussed this once again today with her daughter present. She has not noted any melanotic stools. She has not had any vomiting. Her weight and appetite are stable. She is moving her bowels fairly well. She has not noted any bright red blood either. PAST MEDICAL HISTORY: As mentioned above, GERD, hypertension, hypothyroidism, previous CVA. She has had quadruple bypass as well. SOCIAL HISTORY: Former smoker of cigarettes. She denies heavy alcohol use. MEDICATIONS: 1. Bisacodyl. 2. Milk of magnesia 3. Senokot 4. Also inhalers. ALLERGIES: SEVERAL TO ATORVASTATIN, PRAVASTATIN, PREDNISONE, SIMVASTATIN, CODEINE, DOPAMINE, MORPHINE, RIVAROXABAN. FAMILY HISTORY: Negative from a GI standpoint. There is no family history of colorectal cancer. REVIEW OF SYSTEMS: A 10-point review of systems is as stated in the HPI. LABORATORY DATA: Her white count was normal. Platelet count is 471, creatinine is 1.04. Troponin has decreased to 0.34. Her PT/INR 10.7 and 1.1. PHYSICAL EXAMINATION: GENERAL: Well-developed female, alert and oriented x3 in no acute distress. VITAL SIGNS: Stable. She is afebrile and she is normotensive. SKIN: Warm and dry. No unusual rashes. HEENT: Normocephalic, atraumatic. Sclerae are anicteric. Oral mucosa moist. NECK: Supple. No JVD, no masses. HEART: S1, S2, regular rhythm. LUNGS: Clear to auscultation and percussion. ABDOMEN: Soft, nontender, bowel sounds present. No organomegaly or masses. EXTREMITIES: Without clubbing, cyanosis, edema. NEUROLOGIC: She appears intact. No focal defects. ASSESSMENT: A 77-year-old female who presents with recurrent anemia, probably secondary to gastrointestinal blood loss. This was initiated by recent Plavix therapy for peripheral vascular disease. The patient may have sustained a non-ST myocardial infarction. Cardiology is following the patient. She is asymptomatic at this time. Hemoglobin has risen to 9.9 post-transfusions. Plavix is on hold. PLAN: I will continue to hold the Plavix therapy and seek some alternative, perhaps Lovenox would be a possible substitute. I will leave that up to cardiology for their recommendations. We discussed that for now I would proceed conservatively. If GI workup is needed once again, we will need to start with EGD and colonoscopy and then another capsule endoscopy and the patient and her daughter are not eager to undergo further GI workup at this time. We have reviewed that her previous evaluation was unremarkable for an active source. We will continue to monitor hemoglobin and hematocrit. I will be glad to follow her up after discharge as an outpatient for further recommendations. Thank you kindly for this consult. MD SARAH Mathew/ , 07:55 PM , 08:17 PM
[2018-05-19] MEDS: Acetaminophen 325 MG Tablet PO PRN (21:19)
[2018-05-19] MEDS: Pregabalin 75 MG Capsule PO SCH (21:20)
[2018-05-20 05:13] VITALS: RESP 18
[2018-05-20] MEDS: Pregabalin 75 MG Capsule PO SCH (08:24)
[2018-05-20] MEDS: Pantoprazole Inj 40 MG Vial IV.PUSH SCH (08:25)
[2018-05-20 08:34] VITALS: O2SAT 95
[2018-05-20] MEDS: Acetaminophen 325 MG Tablet PO PRN (08:36)
--- NOTE | 2018-05-20 09:55 | P.PNIM ---
Subjective Interval history: Reports that she is doing well with her clear liquids. She saw Dr. Rodriguez her GI physician yesterday evening. She wants to go home. She feels better. She has no abdominal pain. She has not seen any blood in her stools. Physical Exam Vital signs: Vital Signs 05/19/18 10:27 05/19/18 10:45 05/19/18 12:00 Temperature 99.5 F 99.5 F 98.7 F Pulse Rate 71 64 67 Respiratory Rate 18 20 18 Blood Pressure 141/66 H 153/64 H 150/69 H Pulse Oximetry 93 L 95 05/19/18 15:38 05/19/18 16:00 05/19/18 20:00 Temperature 99.1 F 100.3 F H Pulse Rate 63 86 66 Respiratory Rate 17 18 Blood Pressure 121/73 120/58 L Pulse Oximetry 95 91 L 05/19/18 23:51 05/20/18 00:00 05/20/18 00:12 Temperature 97.8 F 98.1 F 97.1 F L Pulse Rate 63 65 68 Respiratory Rate 18 18 20 Blood Pressure 138/65 109/64 136/63 Pulse Oximetry 90 L 95 95 05/20/18 04:00 05/20/18 08:00 Temperature 97.3 F L 98.3 F Pulse Rate 51 L 64 Respiratory Rate 18 18 Blood Pressure 162/74 H 140/63 Pulse Oximetry 98 95 Intake & Output 05/19/18 05/20/18 05/20/18 18:59 06:59 18:59 Intake Total 400 / 400 550 / 550 Balance 400 / 400 550 / 550 Weight 70.5 kg Intake: Other 150 / 150 Rbc As-3 Leukoreduced Unit 150 / 150 [id number] Intake (Blood Product) Amt 400 / 400 400 / 400 Rbc As-3 Leukoreduced Unit 400 / 400 [id number] Rbc As-3 Leukoreduced Unit 0 / 0 [id number] Rbc As-3 Leukoreduced Unit 400 / 400 [id number] Other: Other Intake Source Rbc As-3 Leukoreduced Unit Saline Solution [id number] # Incontinent Voids 4 # Bowel Movements 0 Narrative: GENERAL: This is a well-nourished, well-developed patient, in no apparent distress. CARDIOVASCULAR: Regular rate and rhythm without murmurs, gallops, or rubs. RESPIRATORY: Clear to auscultation. Breath sounds equal bilaterally. No wheezes , rales, or rhonchi. GASTROINTESTINAL: Abdomen soft, non-tender, nondistended. Normal active bowel sounds MUSCULOSKELETAL: Extremities without clubbing, cyanosis, or edema. NEURO: Alert & Oriented x4 to person, place, time, situation. Moves all ext x4 Results - Labs CBC & Chem 7: 05/19/18 18:52 05/19/18 07:06 Laboratory Results - last 24 hr 05/19/18 05/19/18 05/19/18 01:04 10:01 18:52 Hgb 9.9 L D MTS Gel Crossmatch See Detail See Detail Assessment and Plan - Plan 77-year-old white female presents with 1. Symptomatic anemia rule out underlying GI bleed. Hemoglobin 7.2 Repeat hemoglobin 6.0 and dropping overnight will discontinue heparin drip now Transfuse total of 3 units of packed red blood cells with repeat hemoglobin at 9.9. GI consult is to be placed to rule out underlying GI bleed for further intervention. She states that she has had previous EGD colonoscopy done last year by Dr. Wagoner with no significant findings. Dr. Morrison has seen the patient overnight and recommended follow-up as an outpatient. She is to stop her Plavix and follow-up with her cardiology and primary care physician. 2. Elevated troponin I likely due to possible chronic kidney disease and demand ischemia from the severe anemia per cardiology no further workup to be done at this time. Will discontinue heparin drip started in the emergency room. Cardiology has signed off. 3. Hypertension, chronic essential Due to anemia initially on admission held off on antihypertensives until stabilized. She can now restart her home antihypertensives. At this time patient has gained maximum benefit and ready to be discharged to home. Discharge patient to home Condition on discharge: Improved Cardiac diet as tolerated Ad Nuzhat activity No new Rx written: Continue with Prilosec at home Stop home Plavix Follow-up with primary care physician Follow-up with Dr. Wagoner Discharge Planning: Home when stable.
[2018-05-20 10:14] LABS: Hematocrit 35.9 % (35.0-46.0); Hemoglobin 11.6 gm/dL (11.6-15.3); Mean Corpuscular HGB Conc 32.4 % (32.0-36.0); Mean Corpuscular Hemoglobin 23.1 pg (27.0-34.0); Mean Corpuscular Volume 71.4 fL (80.0-100.0); Mean Platelet Volume 7.8 fL (7.0-11.0); Platelet Count 386 th/mm3 (150-450); Red Blood Count 5.03 mil/mm3 (4.00-5.30); Red Cell Distribution Width 22.6 % (11.6-17.2); White Blood Count 9.7 th/mm3 (4.0-11.0)
[2018-05-20 10:37] LABS: Calcium 8.5 mg/dL (8.5-10.1); Carbon Dioxide 27.5 meq/L (21.0-32.0); Potassium 3.7 meq/L (3.5-5.1)
[2018-06-10 14:41] VITALS: BP 121/59; PULSE 69; TEMP 97.8
== END 2018-05-20 15:31 | disposition home or self-care (01) ==
LOC: NEPE 16:54 → NEDA 20:52 → N04 23:39 → NEDA 23:45
PROVIDERS: ADMIT Family Medicine; ATTEND Family Medicine
DX: I73.9 Peripheral vascular disease, unspecified; Z86.711 Personal history of pulmonary embolism; K21.9 Gastro-esophageal reflux disease without esophagitis; J44.9 Chronic obstructive pulmonary disease, unspecified; I24.8 Other forms of acute ischemic heart disease; Z79.02 Long term (current) use of antithrombotics/antiplatelets; B19.10 Unspecified viral hepatitis B without hepatic coma; I48.92 Unspecified atrial flutter; Z79.899 Other long term (current) drug therapy; Z86.73 Personal history of transient ischemic attack (TIA), and cerebral infarction without residual deficits; N18.9 Chronic kidney disease, unspecified; Z95.1 Presence of aortocoronary bypass graft; Z87.891 Personal history of nicotine dependence; E03.9 Hypothyroidism, unspecified; I13.10 Hypertensive heart and chronic kidney disease without heart failure, with stage 1 through stage 4 chronic kidney disease, or unspecified chronic kidney disease; I25.10 Atherosclerotic heart disease of native coronary artery without angina pectoris; E78.5 Hyperlipidemia, unspecified; D50.9 Iron deficiency anemia, unspecified